=== PATIENT | male | born 1940 | race Caucasian/White ===

== ENCOUNTER 2025-01-16 14:30 | Outpatient (REF) | payer OTHER, SELFPAY | END 2025-01-16 14:31 | disposition home or self-care (01) | LOC: CF 14:30 | DX: Z13.89 Encounter for screening for other disorder (principal) ==

== ENCOUNTER 2025-02-06 10:16 | Outpatient (AMB) | payer OTHER, SELFPAY ==
--- NOTE | 2025-02-06 10:35 | A.OFFVIS_ITS ---
Vital Signs 02/06/25 10:37 Height 5 ft 10 in Weight 178 lb BMI 25.5 BP 142/70 Pulse 75 Pulse Oximetry (%) 97 Oxygen Delivery Method Room Air Intake Visit Reasons: Dyspnea on Exertion [facility] Consultant Required: No Senior Python Developer: Senior Python Developer offered & declined Accompanied by: Self / Same As Patient Allergies No Known Allergies Allergy (Verified 02/06/25 10:41) Medication List - Last Reconciled 02/06/25 by Seda Walls LPN lisinopril 20 mg PO DAILY metoprolol tartrate 25 mg PO BID omeprazole 40 mg PO DAILY tamsulosin 0.4 mg PO BEDTIME HPI HPI Dyspnea on Exertion: Details: James is a pleasant 84 year old male, former 25 pack year smoker, quit 40 years ago with underlying Sjogren's, HTN, HLD, GERD, Ta's esophagus and moderate TITUS. He was referred by PCP for pulmonary evaluation for progressively worsening dyspnea. He notes dyspnea started about 10 years ago and has become more notable with exertion, especially hills/stairs. Denies cough, chest tightness or wheezing. He also notes dyspnea is worse when he travels to [place] with elevation changes. Per referral cardiology evaluation has been unremarkable. Prior CT reports reviewed which revealed waxing and waning nodules, last CT 01/2023 noting scattered pulmonary nodules <4mm. He denies prior h/o asthma/COPD. He did have a prior PFT however reports 10 years ago. He denies any respiratory medications. He denies recurrent respiratory infections. He did have PNA in October, symptoms treated outpatient and had complete resolution of symptoms. 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 Denies any pertinent family history. He was previously under the care of rheumatology for Sjogren's however once provider retired years ago patient did not seek alternative provider. He notes only dry eye symptoms, currently under the care of ophthamology. He has a h/o moderate TITUS, AHI , 2016, however could not tolerate CPAP therapy, however interested in repeating sleep study. [facility] Social History (Updated 02/06/25 @ 10:43 by Seda Walls LPN) Patient Tobacco Use Status: Former Tobacco user Cigarette Packs Per Day: 1 Years Smoked: 20-25 Review of Systems Const Denies chills, Denies excessive sweating, Denies fever(s), Denies headache(s) and Denies night sweats Eyes Reports dry eyes, Denies irritation and Denies itchy eyes ENT Reports Normal hearing present, Denies headache(s), Denies nasal congestion, Denies nasal discharge, Denies post nasal drip and Denies sore throat Card Denies chest pain, Denies chest pain at rest, Denies chest pain with activity, Denies claudication, Denies leg edema, Reports dyspnea on exertion, Denies orthopnea and Denies paroxysmal nocturnal dyspnea Resp Denies chest congestion, Denies cough, Denies hemoptysis, Denies excessive phlegm production, Denies pain on inspiration, Denies pain with cough, Reports dyspnea on exertion, Denies stridor and Denies wheezing Musc Denies myalgias Neuro Reports Normal hearing present and Denies headache(s) Endo Denies excessive sweating Abdi/Lymph Denies lymphadenopathy Aller/Immun Denies itchy eyes, Denies seasonal rhinorrhea and Denies wheezing Physical Exam Vital Signs: Last Vital Signs Pulse 75 02/06/25 10:37 BP 142/70 02/06/25 10:37 Pulse Ox 97 02/06/25 10:37 Oxygen Delivery Method Room Air 02/06/25 10:37 BMI result Body Mass Index 25.5 Const General: cooperative, healthy appearing, comfortable, no acute distress, well developed and alert Orientation/consciousness: patient oriented x3 Limitations: no limitations HEENT Head: Yes normal to inspection, Yes normocephalic and Yes atraumatic Ears: hearing grossly normal bilaterally and external ears normal Eyes General: appearance normal, both eyes and all related structures Eyelids: Yes eyelids normal Sclerae: sclerae normal EOM: EOMs intact bilaterally Neck Neck: Yes normal visual inspection and Yes no lymphadenopathy Lymphatic: no lymphadenopathy noted Chest Chest palpation & inspection: normal inspection of the chest Resp Effort & Inspection: normal respiratory effort, able to speak in complete sentences, no audible wheezes, no cough, no stridor, not tachypneic, no tripod positioning and no use of accessory muscles Auscultation: clear to auscultation bilaterally Cardio Jugular venous distension: no JVD Rate: regular rate Rhythm: regular rhythm Skin Other: warm, dry General skin exam: no rashes or lesions noted Neuro General: patient oriented x3 Cranial nerves: Yes Normal hearing present Cognition (Neuro): normal cognition Gait exam (Neuro): Normal gait present Extrem General: Yes normal to inspection, Yes capillary refill normal, Yes no clubbing, cyanosis or edema and Yes no pedal edema Psych Appearance: grossly normal and well kempt Speech and movement: Normal speech and movement present and Clear speech present Affect: normal affect Attitude: cooperative Thought process: Normal thought process present Thought content: Normal thought content present Insight: Good insight present (Psych) Judgement: Good judgement present (Psych) Assessment & Plan Assessment & Plan (1) Dyspnea on exertion: Code(s): R06.09 - Other forms of dyspnea Category: Medical (2) Daytime somnolence: Code(s): R40.0 - Somnolence Category: Medical (3) Multiple pulmonary nodules: Code(s): R91.8 - Other nonspecific abnormal finding of lung field Category: Medical (4) Sjogren's disease: Code(s): M35.00 - Sjogren syndrome, unspecified Category: Medical Plan James presents for pulmonary evaluation for ongoing dyspnea. Will send for PFT to assess for obstructive defect given prior smoking history. Will also send for repeat Chest CT to assess for any ILD given h/o Sjogren's and stability of prior noted pulmonary nodules. Will attempt to obtain prior CT chest images. Previously patient underwent sleep study revealing moderate TITUS in 2017, he does note ongoing daytime fatigue napping 2-3 times per day and interested in repeating sleep study. Will enter order. All questions were answered and patient is in agreement of plan. Will follow up to review results or sooner if needed. Orders: Orders PFT pulmonary function test Today R06.09 - Other forms of dyspnea CT chest wo IV con Today M35.00 - Sjogren syndrome, unspecified, R91.8 - Other nonspecific abnormal finding of lung field RT home sleep study Today R40.0 - Somnolence Coding Level of Care Code New Pt Level 4 (66577) Diagnoses Dyspnea on exertion R06.09 Daytime somnolence R40.0 Multiple pulmonary nodules R91.8 Sjogren's disease M35.00
[2025-02-06 10:37] VITALS: BP 142/70; PULSE 75; O2SAT 97; BMI 25.5
--- OUTSIDE RECORDS SUMMARY | 2025-02-06 12:07 | XMS_ITS | Encounter Summary ---
Author Organization [facility] [employer] Address [address] [place] [address] [place] [address] Care Team Providers Care 3Rd Pressman Name Role Phone Sánchez Long Unassigned Primary Care Provider U quan [employer] Unavailable Elie Milliganin [facility] Unavailable Judah Chavez PA-C Primary Care Provider [phone] Encounter Details Date Type Department Care Team (Latest Contact Info) Description 06/09/2022 Abstract [facility] CONVERSIONS Dental, Provider, DDS Social History Tobacco Use Types Packs/Day Years Used Date Smoking Tobacco: Never Assessed Sex and Gender Information Value Date Recorded Sex Assigned at Male 08/31/2022 10:34 AM EDT Legal Sex Male 10:34 AM EDT Gender Identity Male 09/11/2022 9:06 PM EST Sexual Orientation Straight 09/11/2022 9: 06 PM EST documented as of this encounter Plan of Treatment Upcoming Encounters Date Type Department Care Team (Late st Contact Info) Description 04/10/2025 3:45 PM EDT Office Visit [facility] [address] [place] [phone] Bentley Milligan [facility] [address], [place] [phone] documented as of this encounter Visit Diagnoses Not on filedocumented in this encounter Care Teams 3Rd Pressman Relationship Specialty Start Date End Date Sánchez Long Unasslynette PCP - General Family Medicine 06/15/23 02/22/24 Judah Chavez PA-C [address] [place] [address] PCP - General Family Medicine 02/23/24 Lorne Luna LLD [address] [place] [id number] Dentist 10/21/23 Bentley Milligan RDH [address] [place] [address] Dental Ritual Circumciser 10/21/23 documented as of this encounter
--- OUTSIDE RECORDS SUMMARY | 2025-02-06 12:07 | XMS_ITS | Clinical Summary ---
Author Organization [employer] Address [address] [place] [address] [address] [place] [address] Care Team Providers Care Laboratory Tester Name Role Phone Lorne Luna LLD Unavailable MilliganBentley RD Unavailable Judah Chavez PA-C Primary Care Provider [phone] Allergies No known active allergies Medications lisinopril 40 MG tablet TAKE 1 TABLET BY MOUTH ONCE DAILY 03/10/2022 Active tamsulosin (Flomax) 0.4 MG 24 hr capsule Take 0.4 mg by mouth 2 times daily. Active hydroCHLOROthiaz mukul (HYDRODiuril) 25 MG tablet Take 25 mg by mouth in the morning. 01/22/2023 Active omeprazole (PriLOSEC) [address] capsule Take 40 mg by mouth. 02/01/2023 Active metoprolol tartrate (Lopressor) 50 MG tablet 03/16/2023 Active amLODIPine (Norvasc) 5 MG tablet 05/12/2023 Active dexlansoprazole (Dexilant) [address] capsule 06/09/2023 Active Active Problems Problem Noted Date Diagnosed Date Dental caries 09/02/2023 Sjogren syndrome with keratoconjunctivitis 07/19 Early dry stage nonexudative age-related macular degeneration of both eyes 07/19/2023 Nuclear age-related cataract, both eyes 07/19/20 23 Social History Tobacco Use Types Packs/Day Years Used Date Smoking Tobacco: Former Cigarettes 1 25 Smokeless Tobacco: Never Tobacco Cessation:Counseling Given: Not Answered Alcohol Use Standard Drinks/Week Comments Yes 7 (1 standard drink = 0.6 oz pur e alcohol) Sex and Gender Information Value Date Recorded Sex Assigned at Male 08/31/2022 10:34 AM EDT Legal Sex Male 10:34 AM EDT Gender Identity Male 09/11/2022 9:06 PM EST Sexual Orientation Straight 09/11/2022 9: 06 PM EST Last Filed Vital Signs Vital Sign Reading Time Taken Comments Blood Pressure 141/76 10/04/2024 3:32 PM EST Pulse 60 10/04/2024 3:32 PM EST Temperature 36.3 ??C (97.3 ??F) 10/04/2024 3:32 PM ES T Respiratory Rate - - Oxygen Saturation - - Inhaled Oxygen Concentration - - Weight - - Height - - Body Mass Index - - Plan of Treatment Upcoming Encounters Date Type Department Care Team (Late st Contact Info) Description 04/10/2025 3:45 PM EDT Office Visit [facility] [address] [place] [phone] [place], [place], [address] [address] Health Maintenance Due Date Last Done Comments Depression Screening 1942 Lipid Panel 1942 SDOH Screening 1942 Alcohol/Substance Use Screening 1954 Pneumococcal Vaccine: 50+ Years (1 of 1 - PCV) 1992 Zoster Vaccines (1 of 2) 1992 RSV Patients and Patients Aged 60 years or older (1 - 1-dose 75+ series) 2017 Dental Oral Exam 09/30/2024 03/29/2024, , 06/09/2022, Additional history exists Dental X-Ray: Bitewings 03/30/2025 03/29/20 24, 11/13/2022, 06/09/2022, Additional history exists Dental Prophylaxis 04/05/2025 10/04/2024, 0 03/29/2024, 06/09/2022, Additional history exists Tobacco Screening 10/04/2025 10/04/2024 Dental X-Ray: Full Mouth 11/14/2025 023, 10/14/2020, 11/20/2016, Additional history exists DTaP/Tdap/Td Vaccines (2 - Td or Tdap) 03/25/2032 03/25/2022 COVID-19 Vaccine Completed 06/28/2024, , 02/06/2022, Additional history exists Influenza Vaccine Completed 12/13/2024, 08/14/2022 HIB Vaccines Aged Out No longer eligi ble based on patient's age to complete this topic HPV Vaccines Aged Out No longer eligi ble based on patient's age to complete this topic Hepatitis A Vaccines Aged Out No long er eligible based on patient's age to complete this topic Hepatitis B Vaccines Aged Out No long er eligible based on patient's age to complete this topic IPV Vaccines Aged Out No longer eligi ble based on patient's age to complete this topic Meningococcal Vaccine Aged Out No omega chasidy eligible based on patient's age to complete this topic RSV under 20 months Aged Out No longe r eligible based on patient's age to complete this topic Rotavirus Vaccines Aged Out No longer eligible based on patient's age to complete this topic Procedures Procedure Name Priority Date/Time Associated Diagnosis Comments PROPHYLAXIS - ADULT Routine 10/04/2024 9 :00 AM EST BITEWINGS - 4 RADIOGRAPHIC IMAGES Routine 03/29/2024 1:30 PM EDT PERIODIC ORAL EVALUATION - ESTABLISHED PATIENT Routine 03/29/2024 1:30 PM EDT INTRAORAL - COMPLETE SERIES OF RADIOGRAPHIC IMAGES Routine 11/13/2022 8:30 AM EST Encounter for dental examination from Last 3 Months or Most Recently Relevant to Health [place] [id number] [facility] FULL HSN FULL DENTAL - HSN FULL (MEDICAID) DENTAL - HSN FULL (MEDICAID) Care Teams Laboratory Tester Relationship Specialty Start Date End Date Judah Chavez PA-C [address] [place] [address] PCP - General Family Medicine 02/23/24 Lorne Luna LLD [address] [place] [id number] Dentist 10/21/23 Bentley Milligan RDH [address] [place] [address] Dental Tobacco Drummer 10/21/23
--- OUTSIDE RECORDS SUMMARY | 2025-02-06 12:07 | XMS_ITS | Data Portability ---
Author Organization 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 Plan of Treatment Reminders Order Date Submit Date Provider Last Modified By Organization Details Last Modified Time Details Appointments None recorded. Lab CBC 2018 019 [facility], [address] [place] [address], [address], 9 12:24:42 C-reactive protein, quantitati ve, serum or plasma 2018 019 [facility], [address] [place] [address], 84383, 9 15:53:13 erythrocyt e sedimentat ion rate by westergren method 2018 019 [facility], [address] [place] [address], 32211, 9 14:13:45 CBC 2018 019 [facility], [address] [place] [address], 29034, 9 12:13:56 C-reactive protein, quantitati ve, serum or plasma 2018 019 [facility], [address] [place] [address], 29189, 9 12:56:10 erythrocyt e sedimentat ion rate by westergren method 2018 019 [facility], [address] [place] [address], 52869, 9 13:48:25 BMP, serum or plasma 2018 019 [facility], [address] [place] [address], 52971, 9 12:56:09 BMP, serum or plasma 2017 018 [facility], [address] [place] [address], 78625, 8 14:28:36 CBC 2017 018 [facility], [address] [place] [address], 14077, 8 12:37:26 erythrocyt e sedimentat ion rate by westergren method 2017 018 [facility], [address] [place] [address], 55329, 8 16:55:23 C-reactive protein, quantitati ve, serum or plasma 2017 018 [facility], [address] [place] [address], 10502, 8 16:57:16 rf (rheumatoi d factor), serum 2017 018 [facility], [address] [place] [address], 43874, 8 12:03:11 CBC 2017 018 [facility], [address] [place] [address], 15877, 8 08:56:17 erythrocyt e sedimentat ion rate by westergren method 2017 018 [facility], [address] [place] [address], 12020, 8 09:38:45 C-reactive protein, quantitati ve, serum or plasma 2017 018 [facility], [address] [place] [address], 57395, 8 16:42:22 protein electropho resis panel, serum or plasma 2017 [facility], [address] [place] [address], 64172, 8 15:36:54 immunoglob ulins iga+igg+ig m, quantitati ve, serum 2017 018 [facility], [address] [place] [address], 14310, 8 15:36:54 Referral None recorded. Procedures None recorded. Surgeries None recorded. Imaging None recorded. Medication Orders Plaquenil 200 mg tablet 2018 019 [email or web address], [address], 9 10:20:35 prednisone 1 mg tablet 2018 [address], [address], 9 17:54:09 Boniva 150 mg tablet 2018 [address], [address], 9 08:34:25 prednisone 5 mg tablet 2017 018 INTERFACE [address], [address], 8 15:44:14 ranitidine 150 mg tablet 2017 018 [email or web address], [address], 9 08:07:17 Patient TargetsNo targets recorded. Patient InstructionsNo instructions recorded. Reason for Referral None Reported. Results Created Date Observation Date Name Description Value Unit Range Abnormal Flag Note LastModifiedBy Organization Detail LastModifiedTime 09/06/20 18 09/07/2018 CBC WBC 8.0 K/? ? ?L 4.2-9. 1 Not Available [address], [address], 09/07/2018 08:56:17 09/06/20 18 09/07/2018 CBC RBC 4.84 M/? ? ?L 4.63-6 .08 Not Available [address], 56843, 09/07/2018 08:56:17 09/06/20 18 09/07/2018 CBC HGB 14.6 g/dL 13.7-1 7.5 Not Available [address], 11926, 09/07/2018 08:56:17 09/06/20 18 09/07/2018 CBC HCT 44.1 % 40.1-5 1.0 Not Available [address], 23058, 09/07/2018 08:56:17 09/06/20 18 09/07/2018 CBC MCV 91.1 ? ? ?L 79.0-9 2.2 Not Available [address], 86403, 09/07/2018 08:56:17 09/06/20 18 09/07/2018 CBC MCH 30.2 pg 25.7-3 2.2 Not Available [address], 08817, 09/07/2018 08:56:17 09/06/20 18 09/07/2018 CBC MCHC 33.1 g/dL 32.3-3 6.5 Not Available [address], 88735, 09/07/2018 08:56:17 09/06/20 18 09/07/2018 CBC plt 443.0 K/? ? ?L 163.0- 337.0 high Not Available [address], 37370, 09/07/2018 08:56:17 09/06/20 18 09/07/2018 CBC MPV 10.2 9.4-12 .4 Not Available [address], 68840, 09/07/2018 08:56:17 09/06/20 18 09/07/2018 CBC neut% 61.9 % 34.0-6 7.9 Not Available [address], 01841, 09/07/2018 08:56:17 09/06/20 18 09/07/2018 CBC neut# 5.0 1.8-5. 4 Not Available [address], 02077, 09/07/2018 08:56:17 09/06/20 18 09/07/2018 CBC lymph % 24.0 % 21.8-5 3.1 Not Available [address], 21592, 09/07/2018 08:56:17 09/06/20 18 09/07/2018 CBC lymph # 1.9 K/? ? ?L 1.3-3. 6 Not Available [address], 39156, 09/07/2018 08:56:17 09/06/20 18 09/07/2018 CBC mono% 12.7 % 5.3-12 .2 high Not Available [address], 68970, 09/07/2018 08:56:17 09/06/20 18 09/07/2018 CBC mono# 1.0 0.3-0. 8 high Not Available [address], 73117, 09/07/2018 08:56:17 09/06/20 18 09/07/2018 CBC eo% 0.9 % 0.8-7. 0 Not Available [address], 35433, 09/07/2018 08:56:17 09/06/20 18 09/07/2018 CBC eo# 0.1 0.0-0. 5 Not Available [address], 14391, 09/07/2018 08:56:17 09/06/20 18 09/07/2018 CBC baso% 0.5 % 0.2-1. 2 Not Available [address], 21963, 09/07/2018 08:56:17 09/06/20 18 09/07/2018 CBC baso# 0.0 0.0-0. 1 Not Available [address], 30032, 09/07/2018 08:56:17 09/06/20 18 09/07/2018 CBC RDW-CV 12.7 % 11.6-1 4.4 Not Available [address], 54235, 09/07/2018 08:56:17 09/06/20 18 09/07/2018 eryth rocyt e sedim entat ion rate by brandon sullivano d sed rate 34.0 0.0-20 .0 high Not Available [address], 96648, 09/07/2018 09:38:45 09/06/20 18 09/07/2018 rf (rheu matoi d facto r), serum rheumatoid factor 1.2 IU/mL 0.0-16 .0 <16.0 IU/mL - Negat debby 16.0- 19.9 IU/mL - Equiv ocal >20.0 IU/mL - Posit debby Not Available [address], 95996, 09/07/2018 12:03:11 09/06/20 18 09/07/2018 C-ziyad ctive prote in, quant itati ve, serum or plasm a C-reactive protein -quant 170.9 mg/L 0.0-9. 0 high VERD= Verif ied by Tate abbott. Not Available [address], [place], [address], 09/07/2018 16:42:22 09/06/20 18 09/12/2018 prote in elect ropho resis panel , serum or plasm a protein, total 6.9 g/dL 6.1-8. 1 normal Not Available [facility] [address], [address], 09/12/2018 15:36:54 09/06/20 18 09/12/2018 prote in elect ropho resis panel , serum or plasm a albumin 3.5 g/dL 3.8-4. 8 low Not Available [facility] [address], [address], 09/12/2018 15:36:54 09/06/20 18 09/12/2018 prote in elect ropho resis panel , serum or plasm a alpha 1 globulin 0.6 g/dL 0.2-0. 3 high Not Available [facility] [address], [address], 09/12/2018 15:36:54 09/06/20 18 09/12/2018 prote in elect ropho resis panel , serum or plasm a alpha 2 globulin 1.0 g/dL 0.5-0. 9 high Not Available [facility] [address], [address], 09/12/2018 15:36:54 09/06/20 18 09/12/2018 prote in elect ropho resis panel , serum or plasm a beta 1 globulin 0.8 g/dL 0.4-0. 6 high Not Available [facility] [address], [address], 09/12/2018 15:36:54 09/06/20 18 09/12/2018 prote in elect ropho resis panel , serum or plasm a beta 2 globulin 0.4 g/dL 0.2-0. 5 normal Not Available [facility] [address] [place], [place], [address], 09/12/2018 15:36:54 09/06/20 18 09/12/2018 prote in elect ropho resis panel , serum or plasm a gamma globulin 0.7 g/dL 0.8-1. 7 low Not Available [facility] [address] [place], [place], [address], 09/12/2018 15:36:54 09/06/20 18 09/12/2018 prote in elect ropho resis panel , serum or plasm a abnormal protein band 1 0.3 g/dL none detect ed high Not Available [facility] [address] [place], [place], [address], 09/12/2018 15:36:54 09/06/20 18 09/12/2018 prote in elect ropho resis panel , serum or plasm a interpretati on Evalu ation revea ls a restr icted band (M-sp emiliano) migra ting in the beta- 1 globu jason regio n. Consi hui immun ofixa tion deborah sis if indic ated. Not Available [facility] [address] [place], [place], [address], 09/12/2018 15:36:54 09/06/20 18 09/12/2018 immun oglob ulins iga+i gg+ig m, quant itati ve, serum interpretati on IgA lambd a monoc lonal band prese nt. Not Available [facility] [address] [place], [place], [address], 09/12/2018 15:36:54 09/06/20 18 09/12/2018 immun oglob ulins iga+i gg+ig m, quant itati ve, serum immunoglobul in A 468 mg/dL 81-463 high Not Available [facility] [address], [address], 09/12/2018 15:36:54 09/06/20 18 09/12/2018 immun oglob ulins iga+i gg+ig m, quant itati ve, serum immunoglobul in g 722 mg/dL 694-16 18 normal Not Available [facility] [address], [address], 09/12/2018 15:36:54 09/06/20 18 09/12/2018 immun oglob ulins iga+i gg+ig m, quant itati ve, serum immunoglobul in M 117 mg/dL 48-271 normal Not Available [facility] [address], [address], 09/12/2018 15:36:54 09/14/20 18 09/14/2018 kassi bello, blood segs 90 % Not Available [address], [address], 09/14/2018 15:12:13 09/14/20 18 09/14/2018 kassi bello, blood bands 1 % Not Available [address], 85126, 09/14/2018 15:12:13 09/14/20 18 09/14/2018 kassi bello, blood lymph 1 % Not Available [address], 91853, 09/14/2018 15:12:13 09/14/20 18 09/14/2018 kassi bello, blood mono 2 % Not Available [address], 00672, 09/14/2018 15:12:13 09/14/20 18 09/14/2018 jose thakkar, kassi wolf, blood reactive lymph 6 % 0-10 Not Available [address], [address]8565, 09/14/2018 15:12:13 09/14/20 18 09/14/2018 CBC WBC 18.1 K/? ? ?L 4.2-9. 1 critical high BRIAN=V erifi ed by Nancy Martinez nusrat high WBC resul t sullivan d to Joi at [facility] and CBC resul ts are avail able in the EMR at 1519, 09/14.s s. Not Available [address], [address], 09/14/2018 15:20:56 09/14/20 18 09/14/2018 CBC RBC 4.96 M/? ? ?L 4.63-6 .08 Not Available [address], 16453, 09/14/2018 15:20:56 09/14/20 18 09/14/2018 CBC HGB 14.8 g/dL 13.7-1 7.5 Not Available [address], 70534, 09/14/2018 15:20:56 09/14/20 18 09/14/2018 CBC HCT 44.1 % 40.1-5 1.0 Not Available [address], 33125, 09/14/2018 15:20:56 09/14/20 18 09/14/2018 CBC MCV 88.9 ? ? ?L 79.0-9 2.2 Not Available [address], 82202, 09/14/2018 15:20:56 09/14/20 18 09/14/2018 CBC MCH 29.8 pg 25.7-3 2.2 Not Available [address], 55799, 09/14/2018 15:20:56 09/14/20 18 09/14/2018 CBC MCHC 33.6 g/dL 32.3-3 6.5 Not Available [address], 40008, 09/14/2018 15:20:56 09/14/20 18 09/14/2018 CBC plt 524.0 K/? ? ?L 163.0- 337.0 high Not Available [address], 81139, 09/14/2018 15:20:56 09/14/20 18 09/14/2018 CBC MPV 9.9 9.4-12 .4 Not Available [address], 51346, 09/14/2018 15:20:56 09/14/20 18 09/14/2018 CBC neut% 88.2 % 34.0-6 7.9 high Not Available [address], 44727, 09/14/2018 15:20:56 09/14/20 18 09/14/2018 CBC neut# 16.0 1.8-5. 4 high Not Available [address], 12203, 09/14/2018 15:20:56 09/14/20 18 09/14/2018 CBC lymph % 7.5 % 21.8-5 3.1 low Not Available [address], 08686, 09/14/2018 15:20:56 09/14/20 18 09/14/2018 CBC lymph # 1.4 K/? ? ?L 1.3-3. 6 Not Available [address], 39894, 09/14/2018 15:20:56 09/14/20 18 09/14/2018 CBC mono% 4.1 % 5.3-12 .2 low Not Available [address], 27351, 09/14/2018 15:20:56 09/14/20 18 09/14/2018 CBC mono# 0.7 0.3-0. 8 Not Available [address], 50524, 09/14/2018 15:20:56 09/14/20 18 09/14/2018 CBC eo% 0.1 % 0.8-7. 0 low Not Available [address], 78644, 09/14/2018 15:20:56 09/14/20 18 09/14/2018 CBC eo# 0.0 0.0-0. 5 low Not Available [address], 12280, 09/14/2018 15:20:56 09/14/20 18 09/14/2018 CBC baso% 0.1 % 0.2-1. 2 low Not Available [address], 86529, 09/14/2018 15:20:56 09/14/20 18 09/14/2018 CBC baso# 0.0 0.0-0. 1 Not Available [address], 13927, 09/14/2018 15:20:56 09/14/20 18 09/14/2018 CBC RDW-CV 12.7 % 11.6-1 4.4 Not Available [address], 29961, 09/14/2018 15:20:56 09/14/20 18 09/14/2018 eryth rocyt e sedim entat ion rate by brandon baker d sed rate 15.0 0.0-20 .0 Not Available [address], 58433, 09/14/2018 15:46:27 09/14/20 18 09/14/2018 C-ziyad ctive prote in, quant itati ve, serum or plasm a C-reactive protein -quant 47.1 mg/L 0.0-9. 0 high LIPS= Speci men Sligh tly Lipem ic. Chem Resul ts may be effec jenelle. Not Available [address], [address], 09/14/2018 16:35:57 09/14/20 18 09/16/2018 lyme disea se igg+i gm Ab, serum borrelia burgdorferi Ab 0.30 <0.90 <=0.9 0 - Negat debby 0.91 - 1.09 - Equiv ocal >=1.1 0 - Posit debby Not Available [address], [address]73, 09/16/2018 14:55:57 10/04/20 18 10/04/2018 CBC WBC 13.8 K/? ? ?L 4.2-9. 1 high Not Available [address], 02667, 10/04/2018 12:37:26 10/04/20 18 10/04/2018 CBC RBC 4.90 M/? ? ?L 4.63-6 .08 Not Available [address], 12399, 10/04/2018 12:37:26 10/04/20 18 10/04/2018 CBC HGB 14.8 g/dL 13.7-1 7.5 Not Available [address], 07080, 10/04/2018 12:37:26 10/04/20 18 10/04/2018 CBC HCT 43.9 % 40.1-5 1.0 Not Available [address], 87458, 10/04/2018 12:37:26 10/04/20 18 10/04/2018 CBC MCV 89.6 fL 79.0-9 2.2 Not Available [address] [place], [address], 10/04/2018 12:37:26 10/04/20 18 10/04/2018 CBC MCH 30.2 pg 25.7-3 2.2 Not Available [address], 11009, 10/04/2018 12:37:26 10/04/20 18 10/04/2018 CBC MCHC 33.7 g/dL 32.3-3 6.5 Not Available [address], 33366, 10/04/2018 12:37:26 10/04/20 18 10/04/2018 CBC plt 261.0 K/? ? ?L 163.0- 337.0 Not Available [address], 09831, 10/04/2018 12:37:26 10/04/20 18 10/04/2018 CBC MPV 10.2 fL 9.4-12 .4 Not Available [address], 35099, 10/04/2018 12:37:26 10/04/20 18 10/04/2018 CBC neut% 87.5 % 34.0-6 7.9 high Not Available [address], 05553, 10/04/2018 12:37:26 10/04/20 18 10/04/2018 CBC neut# 12.1 1.8-5. 4 high Not Available [address], 72099, 10/04/2018 12:37:26 10/04/20 18 10/04/2018 CBC lymph % 7.0 % 21.8-5 3.1 low Not Available [address], 33939, 10/04/2018 12:37:26 10/04/20 18 10/04/2018 CBC lymph # 1.0 K/? ? ?L 1.3-3. 6 low Not Available [address], 90789, 10/04/2018 12:37:26 10/04/20 18 10/04/2018 CBC mono% 5.2 % 5.3-12 .2 low Not Available [address], 91827, 10/04/2018 12:37:26 10/04/20 18 10/04/2018 CBC mono# 0.7 0.3-0. 8 Not Available [address], 86010, 10/04/2018 12:37:26 10/04/20 18 10/04/2018 CBC eo% 0.2 % 0.8-7. 0 low Not Available [address], 19781, 10/04/2018 12:37:26 10/04/20 18 10/04/2018 CBC eo# 0.0 0.0-0. 5 low Not Available [address], 49854, 10/04/2018 12:37:26 10/04/20 18 10/04/2018 CBC baso% 0.1 % 0.2-1. 2 low Not Available [address], 29915, 10/04/2018 12:37:26 10/04/20 18 10/04/2018 CBC baso# 0.0 0.0-0. 1 Not Available [address], 38368, 10/04/2018 12:37:26 10/04/20 18 10/04/2018 CBC RDW-CV 14.5 % 11.6-1 4.4 high Not Available [address], 56493, 10/04/2018 12:37:26 10/04/20 18 10/04/2018 BMP, serum or plasm a glucose 94 mg/dL 70-100 LIPS= Speci men Sligh tly Lipem ic. Chem Resul ts may be effec jenelle. Not Available [address], [address], 10/04/2018 14:28:36 10/04/20 18 10/04/2018 BMP, serum or plasm a BUN 20 mg/dL 7-18 high Not Available [address], 28811, 10/04/2018 14:28:36 10/04/20 18 10/04/2018 BMP, serum or plasm a creatinine 1.1 mg/dL 0.8-1. 3 Not Available [address], 58269, 10/04/2018 14:28:36 10/04/20 18 10/04/2018 BMP, serum or plasm a B/C 18.2 ratio Not Available [address], 25244, 10/04/2018 14:28:36 10/04/20 18 10/04/2018 BMP, serum or plasm a GFR -non 69.4 mL/mi n Recom ida d GFR by the Natio nal Kidne y Found ation >60 mL/mi n/1.7 3m2 - Josefina l <60 mL/mi n/1.7 3m2 - Chron ic Kidne y Disea se <15 mL/mi n/1.7 3m2 - Kidne y Failu re Not Available [address], [address], 10/04/2018 14:28:36 10/04/20 18 10/04/2018 BMP, serum or plasm a GFR - if 83.9 mL/mi n For Afric an Ameri can patie nts: Resul ts Multi plied by 1.21 Not Available [address], 47989, 10/04/2018 14:28:36 10/04/20 18 10/04/2018 BMP, serum or plasm a sodium 138 mmol/ L 136-14 5 Not Available [address], 58459, 10/04/2018 14:28:36 10/04/20 18 10/04/2018 BMP, serum or plasm a potassium 4.5 mmol/ L 3.5-5. 1 Not Available [address], 71802, 10/04/2018 14:28:36 10/04/20 18 10/04/2018 BMP, serum or plasm a chloride 99 mmol/ L 96-107 Not Available [address], 80590, 10/04/2018 14:28:36 10/04/20 18 10/04/2018 BMP, serum or plasm a anion gap 11.3 5.0-15 .0 Not Available [address], 41723, 10/04/2018 14:28:36 10/04/20 18 10/04/2018 BMP, serum or plasm a CO2 28 mmol/ L 21-32 Not Available [address], 57874, 10/04/2018 14:28:36 10/04/20 18 10/04/2018 BMP, serum or plasm a calcium 9.5 mg/dL 8.5-10 .3 Not Available [address], 81302, 10/04/2018 14:28:36 10/04/20 18 10/04/2018 eryth rocyt e sedim entat ion rate by brandon baker d sed rate 3.0 0.0-20 .0 Not Available [address], 27136, 10/04/2018 16:55:23 10/04/20 18 10/04/2018 C-ziyad ctive prote in, quant itati ve, serum or plasm a C-reactive protein -quant <2.0 mg/L 0.0-9. 0 < Not Available [address], 34624, 10/04/2018 16:57:16 12/13/19 19 12/13/2018 CBC WBC 8.8 K/? ? ?L 4.2-9. 1 Not Available [address], 80530, 12/13/2018 12:13:56 12/13/1912/13/2018 CBC RBC 5.27 M/? ? ?L 4.63-6 .08 Not Available [address], 78532, 12/13/2018 12:13:56 12/13/1912/13/2018 CBC HGB 15.9 g/dL 13.7-1 7.5 Not Available [address], 49728, 12/13/2018 12:13:56 12/13/1912/13/2018 CBC HCT 47.3 % 40.1-5 1.0 Not Available [address], 86099, 12/13/2018 12:13:56 12/13/1912/13/2018 CBC MCV 89.8 fL 79.0-9 2.2 Not Available [address], 93492, 12/13/2018 12:13:56 12/13/1912/13/2018 CBC MCH 30.2 pg 25.7-3 2.2 Not Available [address], 79382, 12/13/2018 12:13:56 12/13/1912/13/2018 CBC MCHC 33.6 g/dL 32.3-3 6.5 Not Available [address], 61204, 12/13/2018 12:13:56 12/13/1912/13/2018 CBC plt 266.0 K/? ? ?L 163.0- 337.0 Not Available [address], 97877, 12/13/2018 12:13:56 12/13/1912/13/2018 CBC MPV 10.0 fL 9.4-12 .4 Not Available [address], 13589, 12/13/2018 12:13:56 12/13/1912/13/2018 CBC neut% 80.8 % 34.0-6 7.9 high Not Available [address], 35863, 12/13/2018 12:13:56 12/13/1912/13/2018 CBC neut# 7.1 1.8-5. 4 high Not Available [address], 07664, 12/13/2018 12:13:56 12/13/1912/13/2018 CBC lymph % 13.5 % 21.8-5 3.1 low Not Available [address], 20162, 12/13/2018 12:13:56 12/13/1912/13/2018 CBC lymph # 1.2 K/? ? ?L 1.3-3. 6 low Not Available [address], 99457, 12/13/2018 12:13:56 12/13/1912/13/2018 CBC mono% 5.5 % 5.3-12 .2 Not Available [address], 98875, 12/13/2018 12:13:56 12/13/1912/13/2018 CBC mono# 0.5 0.3-0. 8 Not Available [address], 85267, 12/13/2018 12:13:56 12/13/1912/13/2018 CBC eo% 0.1 % 0.8-7. 0 low Not Available [address], 87237, 12/13/2018 12:13:56 12/13/1912/13/2018 CBC eo# 0.0 0.0-0. 5 low Not Available [address], 96850, 12/13/2018 12:13:56 12/13/1912/13/2018 CBC baso% 0.1 % 0.2-1. 2 low Not Available [address], 09034, 12/13/2018 12:13:56 12/13/1912/13/2018 CBC baso# 0.0 0.0-0. 1 Not Available [address], 98950, 12/13/2018 12:13:56 12/13/1912/13/2018 CBC RDW-CV 14.6 % 11.6-1 4.4 high Not Available [address], 42615, 12/13/2018 12:13:56 12/13/1912/13/2018 BMP, serum or plasm a glucose 108 mg/dL 70-100 high Not Available [address], 99401, 12/13/2018 12:56:09 12/13/1912/13/2018 BMP, serum or plasm a BUN 20 mg/dL 7-18 high Not Available [address], 65067, 12/13/2018 12:56:09 12/13/1912/13/2018 BMP, serum or plasm a creatinine 1.1 mg/dL 0.8-1. 3 Not Available [address], 60851, 12/13/2018 12:56:09 12/13/1912/13/2018 BMP, serum or plasm a B/C 18.2 ratio Not Available [address], 06588, 12/13/2018 12:56:12/13/1912/13/2018 BMP, serum or plasm a GFR -non 69.2 mL/mi n Recom ida d GFR by the Natio nal Kidne y Found ation >60 mL/mi n/1.7 3m2 - Josefina l <60 mL/mi n/1.7 3m2 - Chron ic Kidne y Disea se <15 mL/mi n/1.7 3m2 - Kidne y Failu re Not Available [address], 21483, 12/13/2018 12:56:12/13/1912/13/2018 BMP, serum or plasm a GFR - if 83.7 mL/mi n For Afric an Ameri can patie nts: Resul ts Multi plied by 1.21 Not Available [address], 01515, 12/13/2018 12:56:12/13/1912/13/2018 BMP, serum or plasm a sodium 143 mmol/ L 136-14 5 Not Available [address], 25894, 12/13/2018 12:56:12/13/1912/13/2018 BMP, serum or plasm a potassium 4.5 mmol/ L 3.5-5. 1 Not Available [address], 68899, 12/13/2018 12:56:12/13/1912/13/2018 BMP, serum or plasm a chloride 102 mmol/ L 96-107 Not Available [address], 89767, 12/13/2018 12:56:12/13/1912/13/2018 BMP, serum or plasm a anion gap 11.0 5.0-15 .0 Not Available [address], 21042, 12/13/2018 12:56:09 12/13/19 19 12/13/2018 BMP, serum or plasm a CO2 30 mmol/ L 21-32 Not Available [address], 08770, 12/13/2018 12:56:09 12/13/19 19 12/13/2018 BMP, serum or plasm a calcium 10.0 mg/dL 8.5-10 .3 Not Available [address], 60829, 12/13/2018 12:56:09 12/13/19 19 12/13/2018 C-ziyad ctive prote in, quant itati ve, serum or plasm a C-reactive protein -quant 26.5 mg/L 0.0-9. 0 high Not Available [address], 39324, 12/13/2018 12:56:10 12/13/19 19 12/13/2018 eryth rocyt e sedim entat ion rate by brandon baker d sed rate 2.0 0.0-20 .0 Not Available [address], 75210, 12/13/2018 13:48:25 02/22/20 19 02/21/2019 CBC WBC 9.8 K/? ? ?L 4.2-9. 1 high Not Available [address], 98488, 02/21/2019 12:24:42 02/22/20 19 02/21/2019 CBC RBC 5.29 M/? ? ?L 4.63-6 .08 Not Available [address], 51419, 02/21/2019 12:24:42 02/22/20 19 02/21/2019 CBC HGB 16.2 g/dL 13.7-1 7.5 Not Available [address], [address], 02/21/2019 12:24:42 02/22/20 19 02/21/2019 CBC HCT 47.7 % 40.1-5 1.0 Not Available [address], [address], 02/21/2019 12:24:42 02/22/20 19 02/21/2019 CBC MCV 90.2 fL 79.0-9 2.2 Not Available [address], [address], 02/21/2019 12:24:42 02/22/20 19 02/21/2019 CBC MCH 30.6 pg 25.7-3 2.2 Not Available [address], [address], 02/21/2019 12:24:42 02/22/20 19 02/21/2019 CBC MCHC 34.0 g/dL 32.3-3 6.5 Not Available [address], [address], 02/21/2019 12:24:42 02/22/2002/21/2019 CBC plt 279.0 K/? ? ?L 163.0- 337.0 Not Available [address], [address], 02/21/2019 12:24:42 02/22/2002/21/2019 CBC MPV 10.1 fL 9.4-12 .4 Not Available [address], [address], 02/21/2019 12:24:42 02/22/2002/21/2019 CBC neut% 79.2 % 34.0-6 7.9 high Not Available [address], [address], 02/21/2019 12:24:42 02/22/20 19 02/21/2019 CBC neut# 7.8 1.8-5. 4 high Not Available [address], [address], 02/21/2019 12:24:42 02/22/20 19 02/21/2019 CBC lymph % 12.3 % 21.8-5 3.1 low Not Available [address], [address], 02/21/2019 12:24:42 02/22/2002/21/2019 CBC lymph # 1.2 K/? ? ?L 1.3-3. 6 low Not Available [address], [address], 02/21/2019 12:24:42 02/22/2002/21/2019 CBC mono% 7.6 % 5.3-12 .2 Not Available [address], [address], 02/21/2019 12:24:42 02/22/2002/21/2019 CBC mono# 0.7 0.3-0. 8 Not Available [address], [address], 02/21/2019 12:24:42 02/22/2002/21/2019 CBC eo% 0.5 % 0.8-7. 0 low Not Available [address], [address], 02/21/2019 12:24:42 02/22/2002/21/2019 CBC eo# 0.1 0.0-0. 5 Not Available [address], [address], 02/21/2019 12:24:42 02/22/2002/21/2019 CBC baso% 0.4 % 0.2-1. 2 Not Available [address], [address], 02/21/2019 12:24:42 02/22/2002/21/2019 CBC baso# 0.0 0.0-0. 1 Not Available [address], [address], 02/21/2019 12:24:42 02/22/20 19 02/21/2019 CBC RDW-CV 13.7 % 11.6-1 4.4 Not Available [address], [address], 02/21/2019 12:24:42 02/22/20 19 02/21/2019 eryth rocyt e sedim entat ion rate by brandon lawrence metho d sed rate 2.0 0.0-20 .0 Not Available [address], [address], 02/21/2019 14:13:45 02/22/20 19 02/21/2019 C-ziyad ctive prote in, quant itati ve, serum or plasm a C-reactive protein -quant <2.0 mg/L 0.0-9. 0 < Not Available [address], [address], 02/21/2019 15:53:13 Result Notes None recorded. Problems Name Problem SNOMED Code Status Onset Date Resolution Date Notes Provider Name and Address Organization Details Recorded Time Dry eyes 364617106 Active Not Available [facility] 3 03:14:35 Measuremen t finding outside reference range 872695030 Completed 200609/20/2013 Not Available [facility] 3 02:03:25 Gastroesop hageal reflux disease 827024241 Active 2006 Not Available [facility] 3 03:14:35 Glucose level outside reference range 819872109 Active Not Available [facility] 3 03:14:35 Monoclonal paraprotei nemia Active 2007 Not Available [facility] 3 03:14:35 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 Procedures Surgical History Date Name Laterality Status Provider Name and Address Organization Details Recorded Time 03/13/2016 Radha - EGD completed Sukumar Garcia MD [address] [place] [address], [phone], [facility] 03/13/2016 09:27:48 Imaging Results None recorded. Procedure Notes None recorded. Medical Equipment None Reported. Allergies Allergen ID Allergen Name Allergen Category Reaction Reaction Severity Criticality Documentation Date Start Date Code Code System Note Provider Name and Address Organization Details Recorded Time 21140101 hydroxych loroquine medicatio n hives Not available Not available 02/21/2019 5521 RxNorm Hellen Wilson LPN null, [facility] 9 10:20:52 Medications Name Sig Start Date Stop Date Status Note LastModified by Organization Details LastModified Time Plaquenil 200 mg tablet 1 po bid 02/21 completed Hives, adverse reaction Not Available Not Available Not Available lisinopri l 20 mg tablet Take 1 tablet every day by oral route. active Not Available Not Available No t Available prednison e 5 mg tablet Up to 4 pills daily. Taper as directed . 2018 active 12.5mg daily 02/21/19 Not Available Not Available Not Available Evoxac 30 mg capsule 11/01 completed Take 1.00 caps every day Not Available Not Available Not Available famotidin e 20 mg tablet Take 2 tablets every day by oral route. 10/04 completed Not Available Not Available Not Available tamsulosi n 0.4 mg capsule Take 1 capsule twice a day by oral route. active Not Available Not Available No t Available prednison e 1 mg tablet 4 po qd, taper as directed . 2018 active 12.5mg daily 02/21/19 Not Available Not Available Not Available amlodipin e 10 mg tablet Take 1 tablet every day by oral route. active Not Available Not Available No t Available ranitidin e 150 mg tablet Take 1 tablet every day by oral route. 11/18 completed doesn't take this Not Available Not Available Not Available Boniva 150 mg tablet Take 1 tablet every month by oral route. 2018 active Not Available Not Available Not Avai lable metoprolo l succinate 25mg BID active Not Available Not Available N ot Available Dexilant 60 mg capsule, delayed release Take 1 capsule every day by oral route for 56 days. active Not Available Not Available No t Available Vitals Date Recorded Body weight Heart rate Systolic blood pressure Diastolic blood pressure Provider Name and Address Organization Details Last Updated DateTime 09/06/2018 06254.26 g 96 /min 140 mm[Hg] 80 mm[Hg] Hellen Wilson [facility] 09/06/2018 15:14:45 Date Recorded Body weight Body mass index (BMI) Body height Heart rate Systolic blood pressure Diastolic blood pressure Provider Name and Address Organization Details Last Updated DateTime 8 7[address]36 g 26.4 kg/m2 177.8 cm 60 /min 120 mm[Hg] 68 mm[Hg] Hellen Wilson [facility] 8 09:26:40 Date Recorded Body height Body mass index (BMI) Body weight Heart rate Systolic blood pressure Diastolic blood pressure Provider Name and Address Organization Details Last Updated DateTime 9 177.8 cm 26.8 kg/m2 68113.7 7 g 80 /min 140 mm[Hg] 70 mm[Hg] Hellen Wilson [facility] 9 08:10:19 Date Recorded Body height Body mass index (BMI) Body weight Heart rate Systolic blood pressure Diastolic blood pressure Provider Name and Address Organization Details Last Updated DateTime 9 177.8 cm 27.3 kg/m2 28011.5 5 g 68 /min 154 mm[Hg] 96 mm[Hg] Hellen Wilson [facility] 9 08:26:04 Date Recorded Body height Body mass index (BMI) Body weight Heart rate Systolic blood pressure Diastolic blood pressure Provider Name and Address Organization Details Last Updated DateTime 9 177.8 cm 26.4 kg/m2 88829 g 80 /min 130 mm[Hg] 90 mm[Hg] Hellen Wilson [facility] 9 10:23:14 Social History Question Answer Notes LastModified by Organizat ion Details LastModified Time Tobacco Smoking Status Former Smoker 25 years ago Not Available [facility] 03/26/2011 02:08:45 What Is Your Level Of Alcohol Consumption? Moderate 6/week [email or web address] Information not available 10/04/2018 How Much Tobacco Do You Chew? None Information not available 09/17/2011 What Is Your Occupation? [employer] Information not available 09/19/2011 Patient Has Health Care Proxy Signed And In Chart Yes [email or web address] Information not available 07/14/2018 What Was The Date Of Your Most Recent Tobacco Screening? 02/21/2019 Information not available 05/24/2019 Sex: Unknown Functional Status None recorded. Mental Status None recorded. Family History Relationship Description Onset Age of this Age Resolved Age Notes LastModified by Organization Details LastModified Time Mother Arthritis Not available 09/06/2018 18:01:25 Medical History Condition Response HEMATOLOGIC Hypertension Y GERD Y RHEUMATOLOGIC Past Encounters Encounter ID Performer Location Encounter Start Date Encounter Closed Date Diagnosis/Indication Diagnosis SNOMED-CT Code Diagnosis ICD10 Code Diagnosis Note [id number] Rheumatsam figueroa [facility] [place] [address] 04/25/2007 14:55:58 11/21/2008 02:02:[id number] [place] [address] 04/25/2007 15:52:26 04/25/2007 15:52:[id number] [place] [address] 10/07/2007 12:31:56 10/07/2007 12:32:08 [id number] Luz Maria figueroa [address] [place] [address] 10/14/2007 12:54:06 11/21/2008 02:02:[id number] [place] [address] 10/02/2008 14:01:25 10/02/2008 14:31:14 [id number] Luz Maria figueroa [facility] [place] [address] 11/30/2008 11:18:10 12/03/2008 10:55:10 [id number] Luz Maria figueroa [facility] [place] [address] 02/11/2010 13:16:01 02/14/2010 09:28:37 [id number] Rheumatol og, [address] [place] [address] 09/18/2011 11:15:28 09/21/2011 09:37:44 [id number] Chica Aylin [facility] SHAUNA Verma [address] 03/13/2016 08:18:41 03/13/2016 13:38:59 [id number] Fredi Chapman MD Rheumatol [address] [place] [address] 09/06/2018 15:05:17 09/07/2018 06:07:23 Polymyalgia rheumatica [id number] M35.3 I am quite sure he has PMR.No labs available, but sxs are clearly inflammato ry and are exclusivel y proximal.. Discussed PRM.He has no features suggesting GCA. Discussed treatment and specifical ly discussed possible side effects prednisone . Take zantac for GI protection . Discussed calcium and vit d. Start prednisone 20/d. If not clearly improved 3 days, should contact me. I would raise dose to 30.If doing well, however, OK to try to reduce to 15 mg in 10 days. Then follow up about 4 weeks. [id number] Fredi Chapman MD Rheumatol [address] [place] [address] 10/04/2018 09:10:04 10/06/2018 07:00:59 Polymyalgia rheumatica [id number] M35.3 Classic PMR sxs, elevated CRP, ESR.Only atypical feature is that after initially responding to 20/d prednisone , sxs recurred and have required 15 bid to supress. Update labs today including blood sugar. May attempt slow taper from current 15 mg bid. If unable to taper, will want to add MTX. Long-term current use of systemic steroid 0224189792 25387 Z79.52 On calcium and VIt D. Also on PPI. If unable to taper significan tly in next 2 mo, will want to add Fosamax. Monoclonal gammopathy (clinical) 673162320 D47.2 Has IgA lamda monoclonal gammopathy . This has been present since 2009, unchanged. Doubtful significan c, but will follow. [id number] Fredi Chapman MD Rheumatol ogy, [address] [address] 11/18/2018 07:58:51 11/21/2018 06:41:13 Polymyalgia rheumatica 12135994 M35.3 Classic PMR sxs, elevated CRP, ESR.Only atypical feature is that after initially responding to 20/d prednisone , sxs recurred and since then has required higher than normal doses prednisone . He is unable to taper below 20 mg (10 BID). Lengthy discussion about options, course of PMR, complicati ons of steroid treatment. He is very reluctant to add additional medication and after discussion wants to wait a month or so before deciding about adding MTX. Long-term current use of steroid [id number] Z79.52 On higher than desireable dose of steroids and it does not seem as if he will taper to safe level anytime soon. .Discussed osteoporos is risk.Start anti-resor ptive agent.Cont inue calcium and Vit D. He has hx of Ta's and is on PPI.Will choose Boniva as it is only dosed once per month. discussed precaution s. If it causes and sxs esophagiti s, stop and call (would need Reclast). Update labs at next visit 1 mo. [id number] Fredi Chapman MD [place] [facility] [place] [address] [address] 12/13/2018 08:15:49 12/14/2018 06:37:31 Polymyalgia rheumatica [id number] M35.3 Classic PMR sxs, elevated CRP, ESR.Only atypical feature is that after initially responding to 20/d prednisone , sxs recurred and since then has required higher than normal doses prednisone . He is unable to taper below about 20 mg (10 BID). Lengthy discussion again about options, course of PMR, complicati ons of steroid treatment. Plaquenil may be of some benefit, although unproven. Low risk. Add at 200 bid.Discus sed the use of hydroxychl oroquine (Plaquenil ). Specifical ly discussed potential [employer] and GI side effects, sun sensitivit y and hyperpigme ntation, and discussed specifical ly potential for retinal toxicity and the need for regular eye exams. Advised boost prenisone for 2 weeks, then try taper by just 1 mg per wk, Return about 2 mo. Update labs today. Long-term drug therapy 235835601 Z79.899 Patient on long-term corticoste roids. Discussed adequate calcium and vitamin D intake. GI protection . On Boniva monthly. 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 [id number] Fredi Chapman MD [facility] [facility] [place], [facility] [address] [place] [address] 02/21/2019 10:13:18 02/23/2019 06:24:16 Monoclonal paraproteinemia 940625890 D47.2 IgA: Normal total IgA: level unchanged. Polymyalgi a rheumatica [id number] M35.3 Classic PMR sxs, elevated CRP, ESR.Only atypical feature is that after initially responding to 20/d prednisone , sxs recurred and since then has required higher than normal doses prednisone . Declined MTX. Tried adding Plaquenil but was allergic. He has managed to wean to current 12.5 mg prednisone . Will update labs. Attempt to continue slow pred taper (1 mg every 2 weeks). Return about 3 mo. Long-term current use of steroid 143182327 Z79.52 On higher than desireable dose of steroidsDi scussed osteoporos is risk.On Boniva, tolerating .Continue calcium and Vit D. Should discuss bone density scan with Primary Care (establish ing new PCP at [place]) Dry eyes 194931709 H04.1 29 No worse. Health Concerns Section Related Observation LastModified by Organization Detai ls LastModified Time None Recorded Concern Status LastModified by Organization Details LastModified Time None Recorded Advance Directives Directive None Recorded Payers Encounter Date Sequence Insurance Name Policy Number Policy Mcgill Covered Member ID Mcgill Member ID Guarantor Name 09/06/2018 1 [place] [employer] James W Levy [id number] James Moodus 10/04/2018 1 [place] [employer] James W Levy [id number] James Levy 11/18/2018 1 [place] [employer] James W Moodus [id number] James Moodus 12/13/2018 1 [place] [employer] James W Levy [id number] James Levy 02/21/2019 James Levy [id number] James Lockett Notes Date Note Type Note Provider Name and Address Organization Details Recorded Time 09/06/2018 text/html This is a very pleasant 77-year-old man whom I followed several years ago. At that time he was felt to have probable Sjogren's syndrome (negative SSA/SSB) with an associated IgA lambda monoclonal gammopathy. I have not seen him in more than 7 years. He was living in [place] for a while, has returned to this area.He was in usual health in July, [email or web address]In August had onset of R hip (groin) pain, and subsequently evolved progressive sxs bilat hips, shoulders and neck. Describes very prominent AM stiffness lasting 2 hrs or more. Denies any unusual headache. No jaw claudication, scalp dysesthesia, visual symptoms. No fevers chills sweats or weight loss. Fredi Chapman MD [address] [place] [address], [phone], [facility] 09/06/2018 18:15:18 10/04/2018 text/html This is a very pleasant 77-year-old man whom I followed several years ago. At that time he was felt to have probable Sjogren's syndrome (negative SSA/SSB) with an associated IgA lambda monoclonal gammopathy. I had not seen him in more than 7 years. In August had onset of R hip (groin) pain, and subsequently evolved progressive sxs bilat hips, shoulders and neck. Described very prominent AM stiffness lasting 2 hrs or more. CRP was 170. ESR 34.Dx'd with PMR. Started prednisone 20/d with prompt response, but then sxs recurred. For past 3 weeks on 15 BID. Feels fine. Denies any unusual headache. No jaw claudication, scalp dysesthesia, visual symptoms. No fevers chills sweats or weight loss. Fredi Chapman MD [address] [place] [address], [phone], [facility] 10/05/2018 08:08:13 11/18/2018 text/html This is a very pleasant 77-year-old man whom I followed several years ago. At that time he was felt to have probable Sjogren's syndrome (negative SSA/SSB) with an associated IgA lambda monoclonal gammopathy. I had not seen him in more than 7 years. In August 2018 had onset of R hip (groin) pain, and subsequently evolved progressive sxs bilat hips, shoulders and neck. Described very prominent AM stiffness lasting 2 hrs or more. CRP was 170. ESR 34.Dx'd with PMR. Started prednisone 20/d with prompt response, but then sxs recurred. Required higher doses prednisone (15 BID) to supress sxs. Since then has tried to taper prednisone, but unable to get below 20 mg without significant recurrent sxs. Denies any unusual headache. No jaw claudication, scalp dysesthesia, visual symptoms. No fevers chills sweats or weight loss. Fredi Chapman MD [address] [place] [address], [phone], [facility] 11/20/2018 10:16:45 12/13/2018 text/html This is a very pleasant 78-year-old man whom I followed several years ago. At that time he was felt to have probable Sjogren's syndrome (negative SSA/SSB) with an associated IgA lambda monoclonal gammopathy. In August 2018 had onset of R hip (groin) pain, and subsequently evolved progressive sxs bilat hips, shoulders and neck. Described very prominent AM stiffness lasting 2 hrs or more. CRP was 170. ESR 34.Dx'd with PMR. Started prednisone 20/d with prompt response, but then sxs recurred. Required higher doses prednisone (15 BID) to supress sxs. Since then has tried to taper prednisone, but unable to get below 20 mg without significant recurrent sxs.When I saw him a month ago, I advised adding MTX, but he declined and wanted to try to continue to taper prednisone. He still is unable to taper below ~ 17.5/d. Shoulders and neck are where sxs recur. Denies any unusual headache. No jaw claudication, scalp dysesthesia, visual symptoms. No fevers chills sweats or weight loss. Fredi Chapman MD [address] [place] [address], [phone], [facility] 12/13/2018 17:59:39 02/21/2019 text/html This is a very pleasant 78-year-old man whom I followed several years ago. At that time he was felt to have probable Sjogren's syndrome (negative SSA/SSB) with an associated IgA lambda monoclonal gammopathy. In August 2018 had onset of R hip (groin) pain, and subsequently evolved progressive sxs bilat hips, shoulders and neck. Described very prominent AM stiffness lasting 2 hrs or more. CRP was 170. ESR 34.Dx'd with PMR. Started prednisone 20/d with prompt response, but then sxs recurred. Required higher doses prednisone (15 BID) to supress sxs. Since then has tried to taper prednisone, but was having trouble getting below 20 mg without significant recurrent sxs.Added Plaquenil, but after a month had allergic reaction (rash). Has managed to taper prednisone to current 12.5 mg/d. On lower dose had sxs especially L shoulder. Denies any unusual headache. No jaw claudication, scalp dysesthesia, visual symptoms. No fevers chills sweats or weight loss. Fredi Chapman MD [address] [place] [address], [phone], [facility] 02/22/2019 09:03:18
--- OUTSIDE RECORDS SUMMARY | 2025-02-06 12:07 | XMS_ITS | Encounter Summary ---
Author Organization [facility] Address [address] [place] [address] [place] [address] Care Team Providers Care Order Dispatcher Name Role Phone Sánchez Long Unassigned Primary Care Provider U reubenjacob Lorne Luna LL Unavailable Bentley Milligan [facility] Unavailable Judah Chavez PA-C Primary Care Provider [phone] Encounter Details Date Type Department Care Team (Latest Contact Info) Description 02/27/2019 Abstract [facility] CONVERSIONS Dental, Provider, DDS Social [...] EDT Office Visit [facility] [address] [place] [id number] Bentley Milligan [facility] [address] [place], [place] [phone] documented as of this encounter Visit Diagnoses Not on filedocumented in this encounter Care Teams Order Dispatcher Relationship Specialty Start Date End Date Sánchez Long Unassigned PCP - General Family Medicine 06/15/23 02/22/24 Judah Chavez PA-C [address] [place] [address] PCP - General Family Medicine 02/23/24 Lorne Luna LLD [address] [place] [address] Dentist 10/21/23 Bentley Milligan [facility] [address] [place] [address] Dental Tool Tender 10/21/23 documented as of this encounter
--- OUTSIDE RECORDS SUMMARY | 2025-02-06 12:07 | XMS_ITS | Encounter Summary ---
Author Organization [facility] [employer] Address [address] [place] [address] [place] [address] Care Team Providers Care Eligibility Supervisor Name Role Phone Sánchez Long Unassigned Primary Care Provider U quan Lorne Luna LL Unavailable Bentley Milligan [facility] Unavailable Judah Chavez PA-C Primary Care Provider [phone] Encounter Details Date Type Department Care Team (Latest Contact Info) Description 09/16/2020 Abstract [facility] CONVERSIONS Dental, Provider, DDS Social [...] EDT Office Visit [facility] [address] [place] [phone] Bentley Milligan [facility] [address] [place], [place] [phone] documented as of this encounter Visit Diagnoses Not on filedocumented in this encounter Care Teams Eligibility Supervisor Relationship Specialty Start Date End Date Sánchez Long Unassigned PCP - General Family Medicine 06/15/23 02/22/24 Judah Chavez PA-C [address] [place] [address] PCP - General Family Medicine 02/23/24 Lorne Luna LLD [address] [place] [id number] Dentist 10/21/23 Bentley Milligan [facility] [address] [place] [address] Dental Animal Eviscerator 10/21/23 documented as of this encounter
--- OUTSIDE RECORDS SUMMARY | 2025-02-06 12:07 | XMS_ITS | Clinical Summary ---
Author Organization Formerly [facility] Address [facility] [place] [address] Care Team Providers Care Powder Room Attendant Name Role Phone Unknown Primary Care Provider Unavailabl e Allergies No known active allergies Medications Medication Sig Dispensed Refills Start Date End Date Status CHOLECALCIFEROL, VITAMIN D3, (VITAMIN D-3 ORAL) 05/07/2010 Active DEXLANSOPRAZOLE (DEXILANT) 30 mg CpDM 30 MG = 1 Capsule(s), PO, Twice daily 10/27/2010 Active lisinopril (PRINIVIL;ZESTRIL) 30 mg tablet Take 30 mg by mouth daily. Active tamsulosin (FLOMAX) 0.4 mg capsule Take 0.4 mg by mouth daily. Active Active Problems Problem Noted Date Diagnosed Date Elevated PSA 05/08/2014 Social History Tobacco Use Types Packs/Day Years Used Date Smoking Tobacco: Former Cigarettes 1 23 0 11/01/1959 - 11/01/1982 Smokeless Tobacco: Never Alcohol Use Standard Drinks/Week Comments Not Asked 4 (1 standard drink = 0.6 oz pur e alcohol) Sex and Gender Information Value Date Recorded Sex Assigned at Not on file Gender Identity Not on file Sexual Orientation Not on file Last Filed Vital Signs Vital Sign Reading Time Taken Comments Blood Pressure 136/80 11/28/2014 10:53 AM EST Pulse 69 11/28/2014 10:53 AM EST Temperature 36.6 ??C (97.9 ??F) 05/07/2014 11:39 AM E DT Respiratory Rate 16 05/07/2014 11:39 AM EDT Oxygen Saturation 97% 11/28/2014 10:53 AM EST Inhaled Oxygen Concentration - - Weight 77.1 kg (170 lb) 11/28/2014 10:53 AM EST Height 177.8 cm (5' 10 ) 11/28/2014 10:53 AM EST Body Mass Index 24.39 11/28/2014 10:53 AM EST Plan of Treatment Health Maintenance Due Date Last Done Comments CT Colonography 1942 FIT DNA 1942 FIT 1942 Sigmoidoscopy (10 year) with FIT yearly 1942 Sigmoidoscopy 1942 Tetanus/Diphtheria/Pertussis Vaccines (1 - Tdap) 1961 Pneumoccocal Vaccine: 50+ (1 of 1 - PCV) 1992 Zoster vaccine (1 of 2) 1992 Advance Directive 1997 Colonoscopy 09/14/2013 09/14/2008 (See prior EHR) Colorectal Cancer Screening 09/14/2013 RSV Vaccine (1 - 1-dose 75+ series) 2017 Covid-19 Vaccine (1 - 2023- season) 2024 Influenza (Flu) vaccine (1 o f 1 - Influenza standard series) 07/02/2024 Care Teams Powder Room Attendant Relationship Specialty Start Date End Date Unknown None PCP - General 06/01/22
--- OUTSIDE RECORDS SUMMARY | 2025-02-06 12:07 | XMS_ITS | Encounter Summary ---
Author Organization [facility] [employer] Address [address] [place] [address] [address] [place] [address] Care Team Providers Care Weave Room Supervisor Name Role Phone Lorne Luna LLD Unavailable SriniBentley [facility] Unavailable Judah Chavez PA-C Primary Care Provider [phone] Encounter Details Date Type Department Care Team (Eav Contact Info) Description 07/04/[address] [phone] Judah Chavez PA-C [address] [place], [place] [id number] Social History Tobacco Use Types Packs/Day Years Used Date Smoking Tobacco: Former Cigarettes 1 25 Smokeless Tobacco: Never Alcohol Use Standard Drinks/Week Comments Yes 7 (1 standard drink = 0.6 oz pur e alcohol) Sex and Gender Information Value Date Recorded Sex Assigned at Male 08/31/2022 10:34 AM EDT Legal Sex Male 10:34 AM EDT Gender Identity Male 09/11/2022 9:06 PM EST Sexual Orientation Straight 09/11/2022 9: 06 PM EST documented as of this encounter Miscellaneous Notes * Telephone Encounter - Mer Poe - 07/04/2024 3:20 PM EDT Please call patient and let him know if his crown is there, would like to know before he comes in for appt documented in this encounter Plan of Treatment Upcoming Encounters Date Type Department Care Team (Eva candelario Contact Info) Description 04/10/2025 3:45 PM EDT Office Visit [facility] [address] [place] [phone] MilliganBentley [address] [address] documented as of this encounter Visit Diagnoses Not on filedocumented in this encounter Care Teams Weave Room Supervisor Relationship Specialty Start Date End Date Judah Chavez PA-C [address] [place] [id number] PCP - General Family Medicine 02/23/24 Lorne Luna LLD [address] [place] [phone] Dentist 10/21/23 Srini Bentley, [address] [address] Dental Feeder Catcher Tobacco 10/21/23 documented as of this encounter
== END 2025-02-06 11:36 | disposition home or self-care (01) ==
LOC: HO.HPSW 10:16
PROVIDERS: PCP Family Medicine; Referring Provider Family Medicine; Visit Provider Nurse Practitioner Family
DX: R06.09 Other forms of dyspnea (principal); R40.0 Somnolence; R91.8 Other nonspecific abnormal finding of lung field; M35.00 Sjogren syndrome, unspecified
CPT/HCPCS: 99204

== ENCOUNTER → 2025-02-06 10:16 | Outpatient (BNVA) | payer OTHER, SELFPAY | PROVIDERS: PCP Family Medicine; Referring Provider Family Medicine; Visit Provider Nurse Practitioner Family | DX: R06.09 Other forms of dyspnea (principal); R40.0 Somnolence; R91.8 Other nonspecific abnormal finding of lung field; M35.00 Sjogren syndrome, unspecified | CPT/HCPCS: 99202 ==

== ENCOUNTER → 2025-04-25 13:21 | Outpatient (REF) | payer OTHER, SELFPAY ==
--- OUTSIDE RECORDS SUMMARY | 2025-04-23 06:45 | XMS_ITS | Continuity of Care Document ---
Author Name [facility] Organization [facility] Care Team Providers Care Grade And Center Marker Name Role Phone [facility] Unavailable Unavailable Problems Combined list of problems from Department of Defense and Veterans Affairs facilities. It does not include entries that were removed or entered in error. 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 Leticia Gee 2020 Entered By: REILLY LANG Comment: followed by GI Dr. Kelly with EGD every 3 years for Ta's esopagus due 10/2021 [facility] History of polyp of colon Active Condition [facility] HTN-Hypertension (SCT [id number]) Active Condition May 16, 2018 Entered By: [place] CHRISTIANSEN Comment: Followed by Dr. Samira Pozo Cardiovascular [facility] Hyperlipidemia (SCT [id number]) Active Condition [facility] Malignant melanoma Active Condition Oct 28, 2022 Entered By: ROMAN SERRANO Comment: at age 52, removed with excision only, no LN testing [facility] Obstructive Sleep Apnea Syndrome (SCT [id number]) Active Condition [facility] Polymyalgia rheumatica Active Condition Sep 13, 2020 Entered By: REILLY LANG Comment: Followed by [facility] Dr. Bia Noble [facility] Seborrhoeic dermatitis of scalp Active Condition Oct 28, 2022 Entered By: ROMAN SERRANO Comment: ketoconazole shampoo prescribed, if not effective, will add topical clobetasol or fluocinonide solution [facility] Sjogren's syndrome Active Condition May 16, 2018 Entered By: [place] CHRISTIANSEN Comment: Dr. Chapman diagnosed, dry eyes and throat [facility] Solitary nodule of lung Active Condition March 25, 2022 Entered By: REILYL LANG Comment: CT CHEST 07/10/2020: New 3-4 mm right upper lobe nodule. Rec: chest CT in 1yr. Previously seen 4 mm right lung base nodule has resolved in the interval.Nov 04, 2022 Entered By: REILLY LANG Comment: CT CHEST 10/28/22: Pulmonary nodules measuring up to 5 mm are not significantly changed compared with July 2020 [facility] Tinea pedis Active Condition Oct 28, 2022 Entered By: ROMAN SERRANO Comment: ketoconazole cream prescribed [facility] [place] [facility] Diagnosis: ICD-10-CM E78.5 Hyperlipidemia, unspecified Active Diagnosis [place] ([facility]) Diagnosis: ICD-10-CM K21.9 Gastro-esophageal reflux disease without esophagitis Active Diagnosis [facility] Diagnosis: ICD-10-CM I10 Essential (primary) hypertension Active Diagnosis [place] ([facility]) Diagnosis: ICD-10-CM Z23 Encounter for immunization Active Diagnosis [facility] [place] [facility] Diagnosis: ICD-10-CM R06.00 Dyspnea, unspecified Active Diagnosis [place] ([facility]) Diagnosis: ICD-10-CM G47.33 Obstructive sleep apnea (adult) (pediatric) [facility] [facility] Diagnosis: ICD-10-CM C43.9 Malignant melanoma of skin, unspecified Active Diagnosis [facility] Medications Combined list of outpatient medications from Department of Defense and Veterans Affairs facilities.Medications provided include 1) outpatient medications from the last 15 months, and 2) patient-reported medications. Medication Details Route Status Patient Instructions Prescription Expires Prescription Number Last Dispense Date Ordering Provider Order Date Order Qty Source CICLOPIROX 8% SOLN,TOP APPLY SMALL AMOUNT TOPICALL Y AT BEDTIME FOR FUNGAL DISEASE OF THE NAILS [place] L ACTIVE 04/10/2026 [id number] SAUNDRA ESPINAL 2024 6.6 [facility] [facility] [facility]) DEXLANSOPRA ZOLE 60MG CAP,EC TAKE 1 CAPSULE BY MOUTH ONCE DAILY ORAL ACTIVE NATO CHRISTIANSEN GH SOL 2017 [facility] [facility] [facility]) LISINOPRIL 20MG TAB TAKE ONE TABLET BY MOUTH ONCE DAILY ORAL ACTIVE KEBEULAH,SAUNDRA Pate 2024 [facility] ([facility]) METOPROLOL SUCCINATE 100MG TAB,SA TAKE ONE TABLET BY MOUTH ONCE DAILY ORAL ACTIVE KEALY,SAUNDRA Pate 2024 [facility] [facility] ([facility]) MULTIVIT/OP H AREDS2/LUTE IN/ZEAXANTH IN CAP/TAB TAKE 1 CAPSULE BY MOUTH TWICE DAILY IN THE MORNING AND EVENING, WITH FOOD ORAL ACTIVE 12/08/2025 [id number] SAUNDRA ESPINAL 2024 120 [facility] ([facility]) MULTIVIT/OP HTH AREDS2/LUTE IN/ZEAXANTH IN CAP/TAB TAKE 1 CAPSULE BY MOUTH TWICE DAILY IN THE MORNING AND EVENING, WITH FOOD ORAL 08/02/2024 [id number] Aram GONZALEZ E 2022 240 [facility] TAMSULOSIN HCL 0.4MG CAP TAKE ONE CAPSULE BY MOUTH TWICE DAILY FOR ENLARGED PROSTATE ORAL ACTIVE 06/23/2025 [id number] STERLING LOVE D 2023 180 [facility] Immunizations Combined list of available immunizations from the Department of Defense and Veterans Affairs facilities. Immunization Series Date Given Administered By Site Reaction Lot Number CVX Code Drug Seed Core Operator Status Comments Source INFLUENZA, HIGH-DOSE, TRIVALENT, PF 2024 CHILSON,TIMOT HY E LEFT DELTO ID [id number] 135 complet ed ADMINISTE RED AT ID, [facility] COVID-19 (MODERNA), MRNA, LNP-S, PF, 50 MCG/0.5 ML (AGES 12+ YEARS) 2023 312 complet ed HISTORICA L INFORMATI ON - FROM PATIENT'S WRITTEN RECORD, [facility] COVID-19 (MODERNA), MRNA, LNP-S, PF, 50 MCG/0.5 ML (AGES 12+ YEARS) 3 2022 JOYCE SHARMA ER M LEFT DELTO ID [id number] 312 complet ed ADMINISTE RED AT ID, [facility] INFLUENZA, UNSPECIFIED FORMULATION 2021 88 complet ed [facility] TDAP 2021 115 complet ed [facility] ([facility]) COVID-19 (MODERNA), MRNA, LNP-S, PF, 100 MCG/0.5 ML DOSE 2 2020 207 complet ed MOD; [id number]; 1 [facility] COVID-19 (MODERNA), MRNA, LNP-S, PF, 100 MCG/0.5 ML DOSE 1 2020 207 complet ed MOD; [id number]; 1 [facility] [place] [facility] Results Combined list of recent chemistry, hematology and other laboratory results from Department of Defense and Veterans Affairs, ranging from 15 months to all on record, depending upon the facility. Order Name Results Value Reference Range Date Interpretation Specimen Comments Source LIPID PANEL FASTING CHOLESTERO L [MASS/VOLU ME] IN SERUM OR PLASMA 203 mg/dL 04/04 H Specimen Type: SERUM No comment entered. Ordering Provider: FAINA ESPINAL Report Released Date/Time: Jan 18, 2025 10:00 AM Reporting Lab: [facility] [address] [address] Performing Lab: [facility] [address] [facility] LIPID PANEL FASTING TRIGLYCERI DE [MASS/VOLU ME] IN SERUM OR PLASMA 148 mg/dL 0 - 150 04/04 Specimen Type: SERUM No comment entered. Ordering Provider: FAINA ESPINAL Report Released Date/Time: Jan 18, 2025 10:00 AM Reporting Lab: [facility] [place] [facility] [address] [facility] [address] Performing Lab: [facility] [place] [facility] [address] [facility] [address] [facility] [place] [facility] LIPID PANEL FASTING CHOLESTERO L IN LDL [MASS/VOLU ME] IN SERUM OR PLASMA BY CALCULATIO N 114 mg/dL 0 - 129 04/04 Specimen Type: SERUM No comment entered. Ordering Provider: FAINA ESPINAL Report Released Date/Time: Jan 18, 2025 10:00 AM Reporting Lab: [facility] [place] [facility] [address] [facility] [address] Performing Lab: [facility] [place] [facility] [address] [facility] [address] [facility] [place] [facility] LIPID PANEL FASTING CHOLESTERO L.TOTAL/CH OLESTEROL IN HDL [MASS RATIO] IN SERUM OR PLASMA 3.4 04/04 Specimen Type: SERUM No comment entered. Ordering Provider: FAINA ESIPNAL Report Released Date/Time: Jan 18, 2025 10:00 AM Reporting Lab: [facility] [place] [facility] [address] [facility] [address] Performing Lab: [facility] [place] [facility] [address] [facility] [address] [facility] [place] [facility] LIPID PANEL FASTING CHOLESTERO L IN HDL [MASS/VOLU ME] IN SERUM OR PLASMA 59 mg/dL 40 04/04 Specimen Type: SERUM No comment entered. Ordering Provider: FAINA ESPINAL Report Released Date/Time: Jan 18, 2025 10:00 AM Reporting Lab: [facility] [place] [facility] [address] [facility] [address] Performing Lab: [address] [address] [facility] LIPOPROT EIN (a) LIPOPROTEI N FRACTIONS [INTERPRET ATION] IN SERUM OR PLASMA <10nmol/ L 12/25 Specimen Type: SERUM Comment: REFERENCE RANGE: <75 nmol/L Assay was repeated and verified. Risk Category Optimal < 75 nmol/L Moderate 75 - 125 nmol/L High > 125 nmol/L Cardiovascu lar event risk category cut points (optimal, moderate, high) are based on Janie Andres JACC 2017;69:692 -711. Test Performed by [facility], [address] [place] [address] Jose Michelle M.D., Ph.D., Director of Laboratorie s , CLIA [id number] TEST PERFORMED AT: , Ordering Provider: FAINA ESPINAL Report Released Date/Time: Dec 25, 2024 10:59 AM Reporting Lab: [address] [address] Performing Lab: [facility] [address] [address] [place] [facility] ([facility]) APOLIPOP ROTEIN B MUTATION DETECTIO N APOLIPOPRO TEIN B [MASS/VOLU ME] IN SERUM OR PLASMA 105 mg/dL 12/25 H Specimen Type: SERUM Comment: REFERENCE RANGE: <90 mg/dL Reference Range: <90 Risk Category: Optimal < 90 Moderate 90 - 119 High > or = 120 Cardiovascu lar event risk category cut points (optimal, moderate, high) are based on National Lipid Association recommendat ions-Merna richards TA et al. J Clin Lipid. 2015;9:129- 169 and Geremias BISHOP et al. Endocr Pract. 2017;23(Sup pl 2):1-87. Test Performed by [facility], [address] [place] [address] Jose W Miguel Angel, M.D., Ph.D., Director of Laboratorie s , CLIA [id number] TEST PERFORMED AT: , Ordering Provider: FAINA ESPINAL Report Released Date/Time: Dec 25, 2024 10:59 AM Reporting Lab: [facility] [address] [facility] [address] Performing Lab: [facility] [address] [facility], [address] [place] [id number] [place] [facility] ([facility]) C REACTIVE PROTEIN HS (WROX) C REACTIVE PROTEIN [MASS/VOLU ME] IN SERUM OR PLASMA BY HIGH SENSITIVIT Y METHOD 1.72 mg/L 12/25 Specimen Type: SERUM Comment: Reference range changed on 04/21/11 [facility] reference ranges for ages >17 years: hsCRP in mg/L Risk According to AHA/CDC Guidelines <1.0 Lower relative cardiovascu lar risk. 1.0-3.0 Average cardiovascu lar risk. 3.1-10.0 Higher cardiovascu lar risk. Consider retesting in two weeks to exclude a benign transient elevation in the baseline CRP value secondary to infection or inflammatio n. >10.0 Persistent elevation, upon retesting, may be associated with infection and inflammatio n. Ordering Provider: FAINA ESPINAL Report Released Date/Time: Dec 25, 2024 10:59 AM Reporting Lab: [facility] [address] [facility] [address] Performing Lab: [facility] [address] [facility] [address] [place] [facility] ([facility]) SED RATE, AUTOMATE D ERYTHROCYT E SEDIMENTAT ION RATE BY WESTERGREN METHOD 7 mm/h 0 - 20 12/25 Specimen Type: BLOOD No comment entered. Ordering Provider: FAINA ESPINAL Report Released Date/Time: Dec 25, 2024 10:59 AM Reporting Lab: [facility] [address] [facility] [address] Performing Lab: [facility] [address] [facility] [address] [place] [facility] ([facility]) VITAMIN D (25-OH) 25-HYDROXY VITAMIN D3 [MASS/VOLU ME] IN SERUM OR PLASMA 23 ng/mL 20 - 50 10/11 Specimen Type: SERUM No comment entered. Ordering Provider: FAINA ESPINAL Report Released Date/Time: Sep 27, 2024 03:20 PM Reporting Lab: [facility] [place] [facility] [address] [facility] [address] Performing Lab: [facility] [place] [facility] [address] [facility] [address] [facility] MICROALB UMIN CREATINI NE RATIO PANEL MICROALBUM IN/CREATIN INE [MASS RATIO] IN URINE 15.6 mg/g 0 - 29.9 10/11 Specimen Type: URINE No comment entered. Ordering Provider: FAINA ESPINAL Report Released Date/Time: Sep 27, 2024 03:20 PM Reporting Lab: [facility] [place] [address] [address] Performing Lab: [facility] [place] [facility] [address] [facility] [address] [facility] MICROALB UMIN CREATINI NE RATIO PANEL MICROALBUM IN [MASS/VOLU ME] IN URINE 2.0 mg/dL 10/11 Specimen Type: URINE No comment entered. Ordering Provider: FAINA ESPINAL Report Released Date/Time: Sep 27, 2024 03:20 PM Reporting Lab: [facility] [place] [facility] [address] [facility] [address] Performing Lab: [facility] [place] [facility] [address] [facility] [address] [facility] [facility] MICROALB UMIN CREATINI NE RATIO PANEL CREATININE [MASS/VOLU ME] IN URINE 127.98 mg/dL 10/11 Specimen Type: URINE No comment entered. Ordering Provider: FAINA ESPINAL Report Released Date/Time: Sep 27, 2024 03:20 PM Reporting Lab: [facility] [address] [facility] [address] Performing Lab: [facility] [address] [facility] [address] [facility] [place] [facility] VITAMIN B12 COBALAMIN (VITAMIN B12) [MASS/VOLU ME] IN SERUM OR PLASMA 400 pg/mL 200 - 900 10/11 Specimen Type: SERUM No comment entered. Ordering Provider: FAINA ESPINAL Report Released Date/Time: Sep 27, 2024 03:20 PM Reporting Lab: [facility] [place] [facility] [address] [facility] [address] Performing Lab: [facility] [place] [facility] [address] [facility] [address] [facility] [place] [facility] URINALYS IS COLOR OF URINE Yellow 10/11 Specimen Type: URINE Comment: If Glucose = >500 and Ketones are positive, please alert the Physician. Ordering Provider: FAINA ESPINAL Report Released Date/Time: Sep 27, 2024 03:20 PM Reporting Lab: [facility] [place] [facility] [address] [facility] [address] Performing Lab: [facility] [place] [facility] [address] [facility] [address] [facility] [place] [facility] URINALYS IS APPEARANCE OF URINE Clear 10/11 Specimen Type: URINE Comment: If Glucose = >500 and Ketones are positive, please alert the Physician. Ordering Provider: FAINA ESPINAL Report Released Date/Time: Sep 27, 2024 03:20 PM Reporting Lab: [facility] [place] [facility] [address] [facility] [address] Performing Lab: [facility] [place] [facility] [address] [facility] [address] [facility] [place] [facility] URINALYS IS GLUCOSE [MASS/VOLU ME] IN URINE Normalmg /dL 10/11 Specimen Type: URINE Comment: If Glucose = >500 and Ketones are positive, please alert the Physician. Ordering Provider: FAINA ESPINAL Report Released Date/Time: Sep 27, 2024 03:20 PM Reporting Lab: [facility] [address] [facility] [address] Performing Lab: [facility] [address] [facility] [address] [facility] URINALYS IS KETONES [MASS/VOLU ME] IN URINE BY TEST STRIP NEGATIVE mg/dL 10/11 Specimen Type: URINE Comment: If Glucose = >500 and Ketones are positive, please alert the Physician. Ordering Provider: FAINA ESPINAL Report Released Date/Time: Sep 27, 2024 03:20 PM Reporting Lab: [facility] [place] [facility] [address] [facility] [address] Performing Lab: [facility] [place] [facility] [address] [facility] [address] [facility] URINALYS IS ERYTHROCYT ES [PRESENCE] IN URINE SEDIMENT BY LIGHT MICROSCOPY NEGATIVE mg/dL 10/11 Specimen Type: URINE Comment: If Glucose = >500 and Ketones are positive, please alert the Physician. Ordering Provider: FAINA ESPINAL Report Released Date/Time: Sep 27, 2024 03:20 PM Reporting Lab: [facility] [place] [facility] [address] [facility] [address] Performing Lab: [facility] [place] [facility] [address] [facility] [address] [facility] URINALYS IS PROTEIN [MASS/VOLU ME] IN URINE BY TEST STRIP 10 mg/dL 10/11 Specimen Type: URINE Comment: If Glucose = >500 and Ketones are positive, please alert the Physician. Ordering Provider: FAINA ESPINAL Report Released Date/Time: Sep 27, 2024 03:20 PM Reporting Lab: [facility] [address] [facility] [address] Performing Lab: [facility] [address] [facility] [address] [facility] URINALYS IS NITRITE [PRESENCE] IN URINE NEGATIVE mg/dL 10/11 Specimen Type: URINE Comment: If Glucose = >500 and Ketones are positive, please alert the Physician. Ordering Provider: FAINA ESPINAL Report Released Date/Time: Sep 27, 2024 03:20 PM Reporting Lab: [facility] [place] [address] [address] Performing Lab: [facility] [place] [address] [address] [facility] [place] [facility] URINALYS IS BILIRUBIN. TOTAL [PRESENCE] IN URINE NEGATIVE mg/dL 10/11 Specimen Type: URINE Comment: If Glucose = >500 and Ketones are positive, please alert the Physician. Ordering Provider: FAINA ESPINAL Report Released Date/Time: Sep 27, 2024 03:20 PM Reporting Lab: [facility] [place] [address] [address] Performing Lab: [facility] [place] [address] [address] [facility] URINALYS IS SPECIFIC GRAVITY OF URINE BY REFRACTOME TRY 1.022 1.016 - 1.022 10/11 Specimen Type: URINE Comment: If Glucose = >500 and Ketones are positive, please alert the Physician. Ordering Provider: FAINA ESPINAL Report Released Date/Time: Sep 27, 2024 03:20 PM Reporting Lab: [facility] [place] [address] [address] Performing Lab: [facility] [place] [address] [address] [facility] URINALYS IS PH OF URINE BY TEST STRIP 7.0 5.0 - 9.0 10/11 Specimen Type: URINE Comment: If Glucose = >500 and Ketones are positive, please alert the Physician. Ordering Provider: FAINA ESPINAL Report Released Date/Time: Sep 27, 2024 03:20 PM Reporting Lab: [facility] [address] [address] Performing Lab: [facility] [address] [address] [facility] URINALYS IS UROBILINOG EN [MASS/VOLU ME] IN URINE BY TEST STRIP Normalmg /dL <2.0 - 2.0 10/11 Specimen Type: URINE Comment: If Glucose = >500 and Ketones are positive, please alert the Physician. Ordering Provider: FAINA ESPINAL Report Released Date/Time: Sep 27, 2024 03:20 PM Reporting Lab: [address] [address] Performing Lab: [address] [phone] [place] [address] URINALYS IS LEUKOCYTE ESTERASE [PRESENCE] IN URINE BY TEST STRIP NEGATIVE 10/11 Specimen Type: URINE Comment: If Glucose = >500 and Ketones are positive, please alert the Physician. Ordering Provider: FAINA ESPINAL Report Released Date/Time: Sep 27, 2024 03:20 PM Reporting Lab: [address] [address] Performing Lab: [facility] [address] [address] [place] [address] HEMOGLOB IN A1C PANEL HEMOGLOBIN A1C/HEMOGL OBIN.TOTAL IN BLOOD BY HPLC 5.3 4.0 - 5.6 10/11 Specimen Type: BLOOD Comment: Values obtained from A1C measurement s can vary. For atypical A1C assays, a reported value of 7.0 could actually be between 6.72 and 7.28 if measured by a reference method. A reported value of 9.0 could actually be between 8.73 and 9.27. Ref: http://www. ngsp.org/[place] Pdata.asp Ordering Provider: FAINA ESPINAL Report Released Date/Time: Sep 27, 2024 03:20 PM Reporting Lab: [address] [place] [address] Performing Lab: [facility] [address] [facility] [address] [facility] Vital Signs Combined list of inpatient and outpatient Vital Signs from Department of Defense and Veterans Affairs, ranging from 12 months to all on record, depending upon the facility. Vital Sign Value Date Comments Source SYSTOLIC BLOOD PRESSURE 144 04/09/2025 09:35:03 [facility] ([facility]) DIASTOLIC BLOOD PRESSURE 83 04/09/2025 09:35:03 [facility] ([facility]) PULSE OXIMETRY 99 % 04/09/2025 09:35:03 [place] ([facility]) WEIGHT 181 04/09/2025 09:35:03 [place] ([facility]) BMI 26 kg/m2 04/09/2025 09:35:03 [place] ([facility]) PAIN 3 04/09/2025 09:35:03 [place] ([facility]) TEMPERATURE 97.4 04/09/2025 09:35:03 [place] N[place] ([facility]) PULSE 63 04/09/2025 09:35:03 [place] ([facility]) RESPIRATION 20 04/09/2025 09:35:03 [place] ([facility]) SYSTOLIC BLOOD PRESSURE 183 12/25/2024 10:30:29 [place] ([facility]) DIASTOLIC BLOOD PRESSURE 84 12/25/2024 10:30:29 [place] ([facility]) PULSE OXIMETRY 99 12/25/2024 10:30:29 [place] ([facility]) WEIGHT 178.6 12/25/2024 10:30:29 [place] ([facility]) BMI 26 kg/m2 12/25/2024 10:30:29 [place] ([facility]) PAIN 2 12/25/2024 10:30:29 [place] ([facility]) PULSE 67 12/25/2024 10:30:29 [place] ([facility]) RESPIRATION 18 12/25/2024 10:30:29 [place] ([facility]) SYSTOLIC BLOOD PRESSURE 132 10/16/2024 11:06:21 [facility] ([facility]) DIASTOLIC BLOOD PRESSURE 78 10/16/2024 11:06:21 [facility] ([facility]) PULSE OXIMETRY 97 10/16/2024 11:06:21 [place] ([facility]) WEIGHT 179 10/16/2024 11:06:21 [place] ([facility]) BMI 26 kg/m2 10/16/2024 11:06:21 [place] ([facility]) PAIN 0 10/16/2024 11:06:21 [place] ([facility]) TEMPERATURE 98 10/16/2024 11:06:21 [place] ([facility]) PULSE 73 10/16/2024 11:06:21 [place] ([facility]) RESPIRATION 20 10/16/2024 11:06:21 [place] ([facility]) Encounters Combined list of: 1) Encounters from Department of Veterans Affairs facilities going backup to the last 18 months, not all VA inpatient encounters are included; 2) Encounters from the Department of [facility] facilities going backup to 280 months. Location Location Details Encounter Type Encounter Number Reason For Visit Attending Provider ADM Date DC Date Status Disposition Source [facility]counter [id number] 11/19 [facility] En[facility] [id number] 01/13 [facility] OFFICE O/P EST SF 10 MIN [id number] Diagnos is: ICD-10- CM C43.9 Maligna nt melanom a of skin, unspeci BETTIE Loredo RD 03/15 [facility] Outpatient Encounter [id number] 03/15 [facility] Out[facility] Encounter [id number] 03/17 [facility] Out[facility] Encounter [id number] 03/23 [facility] Encounter [id number] 04/04 [facility] Out[facility] Encounter [id number] 04/14 [facility] Encounter [id number] 04/27 [facility] Out[facility] Encounter [id number] 06/20 [facility] Encounter [id number] 06/20 [facility] Out[facility] Encounter [id number] [facility] Out[facility] Encounter [id number] 06/23 [facility] POS AIRWAY PRESSURE CPAP [id number] 1. Diagnos is: ICD-10- CM G47.33 Obstruc tive sleep apnea (adult) (pediat klarissa) [facility] 06/23 [facility] Encounter [id number] 06/26 [facility] Encounter [id number] 06/27 [facility] Encounter [id number] 1.08/08 [facility] Encounter [id number] 08/16 [facility] Encounter [id number] 08/23 [facility] Encounter [id number] 08/28 [facility] Encounter [id number] 1.09/05 [facility] Out[facility] Encounter [id number] 09/06 [facility] Out[facility] Encounter [id number] [facility] Encounter [id number] 09/14 [facility] Out[facility] Encounter [id number] 09/26 [facility] Encounter [id number] 1.10/16 [facility] ([facility] OFFICE O/P EST HI 40 MIN [id number] Diagnos is: ICD-10- CM I10 Essenti al (primar y) hyperte nsion KEALY,SHEV AUGHN M 10/16 [place] [facility] Out[facility] Encounter [id number] 10/20 [facility] Out[facility] Encounter [id number] 10/20 [facility] Out[facility] Encounter [id number] 10/24 [facility] Encounter [id number] 10/26 [facility] Out[facility] Encounter [id number] [facility] PT EDUCATION NOC INDIVID [id number] Diagnos is: ICD-10- CM R06.00 Dyspnea , unspeci fied CHRISTENSO NABDIAS L 11/03 [place] [facility] Out[facility] Encounter [id number] 11/06 [facility] Out[facility] Encounter [id number] 11/13 [facility] Out[facility] Encounter [id number] 11/16 [facility] Out[facility] Encounter [id number] 11/23 [facility] OFFICE O/P EST MOD 30 MIN [id number] Diagnos is: ICD-10- CM R06.00 Dyspnea , unspeci fied KEALY,SHEV AUGHN M 12/07 [place] [facility] Outpatient Encounter [id number] 12/09 [facility] OFF/OP EST MAY X REQ PHY/QHP [id number] Diagnos is: ICD-10- CM Z23 Encount er for immuniz ation CHIABHIJIT,TI MOTHY E 12/13 [facility] Outpatient Encounter [id number] [facility] [facility] OFFICE O/P EST MOD 30 MIN [id number] Diagnos is: ICD-10- CM I10 Essenti al (primar y) hyperte nsion TONIA ESPINAL 12/25 [place] [facility] Outpatient Encounter [id number] 01/10 [facility] Outpatient Encounter [id number] 01/16 [facility] [place] [facility] OFFICE O/P EST MOD 30 MIN [id number] Diagnos is: ICD-10- CM E78.5 Hyperli pidemia , unspeci TONIA Christiansen 01/18 [place] [facility] [place] NQHP OL DIG ASSMT&MGMT 5-10 [id number] Diagnos is: ICD-10- CM K21.9 Gastro- esophag eal reflux disease without esophag itis ILSA JACOBS IE 01/22 [place] [facility] Outpatient Encounter [id number] [facility] Out[facility] Encounter [id number] [facility] Outpatient Encounter [id number] [facility] Outpatient Encounter [id number] [facility] Outpatient Encounter [id number] [facility] Out[facility] Encounter [id number] [facility] [facility] ([facility]) OFFICE O/P EST MOD 30 MIN [id number] Diagnos is: ICD-10- CM E78.5 Hyperli pidemia , unspeci fied KEBEULAH,SAUNDRAV AUGHN M 04/09 [place] [facility] Outpatient Encounter [id number] 04/10 [facility] Out[facility] Encounter [id number] 04/10 [facility] Social History Combined list of available smoking, tobacco, and other social history from Department of Defense and Veterans Affairs facilities. Social History Type Response Date Comment Source Tobacco smoking status LAIS VA-TOBACCO NEVER USED OTHER TYPE 04/09/2025 [facility] ([facility]) History of tobacco use VA-TOBACCO USE FORMER CIGARETTES 04/09/2025 [facility] ([facility]) History of tobacco use VA-[facility]ACCO FORMER USER 03/15/2024 [facility] History of tobacco use VA-TOBACCO QUIT 15 YRS OR MORE 03/24/2023 [facility] ([facility]) History of tobacco use VA-TOBACCO NEVER USED 03/25/2022 [facility] ([facility]) History of tobacco use VA-TOBACCO FORMER USER 11/19/2020 [facility] ([facility]) History of tobacco use VA-TOBACCO QUIT 15 YRS OR MORE 06/27/2019 [facility] ([facility]) History of tobacco use QUIT TOBACCO USE > 7 YEARS AGO 05/23/2018 quit 30yrs ago [facility] ([facility]) History of tobacco use QUIT TOBACCO USE > 7 YEARS AGO 04/28/2018 quit 42 years ago, used to smoke 1 pack daily [facility] ([facility]) Plan of Care List of future care activities from Department of Veterans Affairs facilities. Additional future care activities may be listed in the Assessment and Plan section. Date/Time Care Activity Care Activity Detail Facili ty 04/09/2025 Consult Order [facility] LASTIC SURGERY Cons Frozen Pie Maker's Choice [facility] ([facility])
== END ==
LOC: HO.SL 13:21
PROVIDERS: Visit Provider Nurse Practitioner Family
DX: G47.33 Obstructive sleep apnea (adult) (pediatric) (principal); R40.0 Somnolence
CPT/HCPCS: 95806

== ENCOUNTER → 2025-04-25 13:39 | Outpatient (BNV) | payer OTHER, SELFPAY | PROVIDERS: Visit Provider Internal Medicine | DX: G47.33 Obstructive sleep apnea (adult) (pediatric) (principal) | CPT/HCPCS: 95806 ==

== ENCOUNTER 2025-06-15 13:04 | Outpatient (REF) | payer OTHER, SELFPAY ==
--- OUTSIDE RECORDS SUMMARY | 2024-10-16 07:00 | XMS_ITS | Encounter Summary ---
Author Name [facility] Address [address] [place] [address] Care Team Providers Care Parts Clerk Name Role Phone PRITI MOSQUEDA Primary Care Provider Unavailabl e Insurance Providers: All historical and current Section Date Range: From patient's date of to the date document was created. This section includes the names of all active insurance providers for the patient. Insurance Provider Type of Coverage Plan Name Start of Policy Coverage End of Policy Coverage Group Number Member ID Insurance Provider's Telephone Number Policy Mcgill's Name Patient's Relationship to Policy Mcgill MEDICARE (WNR) MEDICARE (M) PART A Nov 01, 2007 PART A [id number] [phone] [id number] LAUREN HERNANDES PATIENT MEDICARE (WNR) MEDICARE () PART B Nov 01, 2007 PART B [id number] LAUREN HERNANDES PATIENT MEDICARE (WNR) MEDICARE (M) PART A Nov 01, 2007 PART A [id number] LAUREN HERNANDES PATIENT MEDICARE (WNR) MEDICARE (M) PART B Nov 01, 2007 PART B [id number] [phone] LAUREN HERNANDES PATIENT MEDICARE (WNR) MEDICARE (M) PART A Nov 01, 2007 PART A [id number] LAUREN HERNANDES PATIENT MEDICARE (WNR) MEDICARE (M) PART B Nov 01, 2007 PART B [id number] LAUREN HERNANDES PATIENT MEDICARE (WNR) MEDICARE (M) PART B Nov 01, 2007 PART B [id number] LAUREN HERNANDES PATIENT MEDICARE (WNR) MEDICARE (M) PART A Nov 01, 2007 PART A [id number] [phone] LAUREN HERNANDES PATIENT MEDICARE (WNR) MEDICARE (M) PART A Nov 01, 2007 PART A [id number] LAUREN HERNANDES PATIENT MEDICARE (WNR) MEDICARE (M) PART B Nov 01, 2007 PART B [id number] [phone] [id number] LAUREN HERNANDES PATIENT MEDICARE (WNR) MEDICARE (M) PART A Nov 01, 2007 PART A [id number] LAUREN HERNANDES PATIENT MEDICARE (WNR) MEDICARE (M) PART B Nov 01, 2007 PART B [id number] [id number] LAUREN HERNANDES PATIENT Selected Encounter This section includes the information on record at [place] for the Encounter. Date/Time Encounter Type Encounter Description Reason Provider Source Oct 16, 2024 11:00 AM OFFICE O/P EST HI 40 MIN PRIMARY CARE/MEDICINE ICD-10-CM I10 Essential (primary) hypertension EDUARDO ESPINAL Domenica Encounter Template Text not used by [place] Assessments - Encounter Diagnoses This section includes the primary and secondary diagnoses documented for the Encounter. 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, unsp eye EDUARDO ESPINAL ([facility]) Oct 18, 2024 08:54 AM SECONDARY Malignant melanoma of skin, unspecified EDUARDO ESPINAL ([facility]) Oct 18, 2024 08:54 AM SECONDARY Obstructive sleep apnea (adult) (pediatric) EDUARDO ESPINALFIELD ([facility]) Oct 18, 2024 08:54 AM SECONDARY Polymyalgia rheumatica EDUARDO ESPINALFIELD ([facility]) Oct 18, 2024 08:54 AM SECONDARY Solitary pulmonary nodule EDUARDO ESPINALFIELD ([facility]) Plan of Treatment: Future Appointments (+ 6 months) and Future Tests (+/- 45 days) The Plan of Treatment section includes future care activities for the patient from [facility] [place] [facility]. This section includes future appointments and future orders which are active, pending or scheduled. Future Appointments This section includes appointments that were scheduled to occur 6 months from the date of the Encounter, up to a maximum of 20 appointments. The data comes from all [place] treatment facilities. Appointment Date/Time Appointment Type Appointme nt Facility Name Oct 19, 2024 01:00 PM AMBULATORY - MEDICINE [place] [facility] [place] [facility] Nov 03, 2024 10:00 AM AMBULATORY - MEDICINE [facility] ([facility]) Nov 28, 2024 01:00 PM AMBULATORY - PSYCHIATRY [place] [facility] [place] [facility] Dec 07, 2024 10:00 AM AMBULATORY - MEDICINE [place] [facility] [place] [facility] Dec 13, 2024 01:00 PM AMBULATORY - MEDICINE [place] [facility] [place] [facility] Dec 25, 2024 10:30 AM AMBULATORY - MEDICINE [facility] ([facility]) Dec 26, 2024 02:15 PM AMBULATORY - MEDICINE [place] [facility] [place] [facility] Jan 01, 2025 10:00 AM AMBULATORY - NONE [place] [facility] [place] [facility] Jan 10, 2025 11:30 AM AMBULATORY - MEDICINE [place] [facility] [place] [facility] Jan 18, 2025 09:30 AM AMBULATORY - MEDICINE [place] [facility] [place] [facility] Feb 06, 2025 10:30 AM AMBULATORY - MEDICINE [place] [facility] [place] [facility] Apr 09, 2025 09:30 AM AMBULATORY - MEDICINE [facility] ([facility]) Lab Results: +/- 30 days of the encounter This section includes the Chemistry and Hematology Lab Results on record with [place] for the patient. Radiology Reports and Pathology Reports are provided separately, in subsequent sections. Lab Results This section contains the Chemistry/Hematology Results that were resulted 30 days before or 30 daysafter the date of the Encounter. Date/Time Source Result Type Result - Unit Interpretation Reference Range Specimen Type Comment Oct 11, 2024 10:33 AM [facility] MICROALBUMIN CREATININE RATIO PANEL URINE Spe cimen Type: URINE No comment entered. Ordering Provider: CLEMENCIA ESPINAL Report Released Date/Time: Sep 27, 2024 03:20 PM Reporting Lab: [address] [address] Performing Lab: [address] [address] MICROALBUMIN/CREATININE RATIO 15.6 mg/g 0-29.9 MICROALBUMIN,QUANTITATIVE 2.0 mg/dL RR U NAVAIL CREATININE URINE 127.98 mg/dL Oct 11, 2024 10:33 AM [facility] URINALYSIS URINE Specimen Type: URINE Comment: If Glucose = >500 and Ketones are positive, please alert the Physician. Ordering Provider: CLEMENCIA ESPINAL Report Released Date/Time: Sep 27, 2024 03:20 PM Reporting Lab: [address] [address] Performing Lab: [address] [address] UA COLOR Yellow Yellow UA APPEARANCE Clear Clear UA GLUCOSE Normal mg/dL Negative UA KETONES NEGATIVE mg/dL Negative UA BLOOD NEGATIVE mg/dL Negative UA PROTEIN 10 mg/dL Negative UA NITRITE NEGATIVE mg/dL Negative UA BILIRUBIN NEGATIVE mg/dL Negative UA SPECIFIC GRAVITY 1.022 1.016-1.022 UA pH 7.0 5.0-9.0 UA UROBILINOGEN Normal mg/dL <2.0 UA LEUKOCYTE NEGATIVE Negative Oct 11, 2024 10:33 AM [facility] HEMOGLOBIN A1C PANEL BLOOD Specimen Type: BLO OD Comment: Values obtained from A1C measurements can vary. For atypical A1C assays, a reported value of 7.0 could actually be between 6.72 and 7.28 if measured by a reference method. A reported value of 9.0 could actually be between 8.73 and 9.27. Ref: http://www.ngsp.org/CAPdata.asp Ordering Provider: CLEMENCIA ESPINAL Report Released Date/Time: Sep 27, 2024 03:20 PM Reporting Lab: [place] [facility] [place] [facility] [address] [facility] [address] Performing Lab: [facility] [address] [facility] [address] HEMOGLOBIN A1C 5.3 4.0-5.6 Oct 11, 2024 10:33 AM [facility] VITAMIN B12 SERUM Specimen Type: SERUM No comment entered. Ordering Provider: CLEMENCIA ESPINAL Report Released Date/Time: Sep 27, 2024 03:20 PM Reporting Lab: [facility] [place] [address] [address] Performing Lab[facility] [address] [address] VITAMIN B12 400 pg/mL 200-900 Oct 11, 2024 10:33 AM [facility] VITAMIN D (25-OH) SERUM Specimen Type: SERUM No comment entered. Ordering Provider: CLEMENCIA ESPINAL Report Released Date/Time: Sep 27, 2024 03:20 PM Reporting Lab: [facility] [place] [address] [address] Performing Lab: [facility] [address] [address] VITAMIN D (25-OH) 23 ng/mL 20-50 Oct 11, 2024 10:33 AM [facility] TSH SERUM Specimen Type: SERUM No comment entered. Ordering Provider: CLEMENCIA ESPINAL Report Released Date/Time: Sep 27, 2024 03:20 PM Reporting Lab: [facility] [place] [facility] [address] [facility] [address] Performing Lab: [place] [facility] [place] [address] [address] TSH 2.08 u[IU]/mL 0.35-5.00 Oct 11, 2024 10:33 AM [facility] BASIC METABOLIC PANEL (non-fasting) SERUM Spe cimen Type: SERUM No comment entered. Ordering Provider: CLEMENCIA ESPINAL Report Released Date/Time: Sep 27, 2024 03:20 PM Reporting Lab: [facility] [address] [facility] [address] Performing Lab: [facility] [address] [facility] [address] UREA NITROGEN 20 mg/dL 7-25 GLUCOSE 96 mg/dL 65-100 SODIUM 139 mmol/L 135-145 POTASSIUM 4.7 mmol/L 3.5-5.0 CHLORIDE 103 mmol/L 100-110 CO2 27 meq/L 20-30 CREATININE, Serum 1.16 mg/dL 0.50-1.40 eGFR(CKD-EPI 2020) 63 mL/min >60 Oct 11, 2024 10:33 AM [facility] LIVER FUNCTION SERUM Specimen Type: SERUM No comment entered. Ordering Provider: CLEMENCIA ESPINAL Report Released Date/Time: Sep 27, 2024 03:20 PM Reporting Lab: [facility] [address] [facility] [address] Performing Lab: [address] [address] PROTEIN,TOTAL 6.8 g/dL 6.0-8.3 ALBUMIN 3.9 g/dL 3.5-5.0 ALKALINE PHOSPHATASE 61 U/L 40-150 AST 13 U/L 5-34 ALT 13 U/L BILIRUBIN, TOTAL 0.9 mg/dL 0.2-1.2 Oct 11, 2024 10:33 AM [facility] LIPID PANEL, NON FASTING SERUM Specimen Type: SERUM No comment entered. Ordering Provider: CLEMENCIA ESPINAL Report Released Date/Time: Sep 27, 2024 03:20 PM Reporting Lab: [address] [address] Performing Lab: [address] [address] CHOLESTEROL 234 mg/dL H TRIGLYCERIDE 168 mg/dL H 0-150 LDL calculated 146 mg/dL H 0-129 CHOL/HDL 4.3 HDL CHOLESTEROL 54 mg/dL 40-60 Oct 11, 2024 10:33 AM [facility] CBC AND DIFF (AUTO) BLOOD Specimen Type: BLOO D No comment entered. Ordering Provider: CLEMENCIA ESPINAL Report Released Date/Time: Sep 27, 2024 03:20 PM Reporting Lab: [facility] [address] [facility] [address] Performing Lab: [facility] [address] [facility] [address] WBC 5.75 10*3/uL 4.50-11.00 RBC 5.37 10*6/uL 4.23-5.66 HGB 16.3 g/dL 12.8-17 HCT 47.2 39.2-50.4 MCV 87.9 fL 82-99 MCHC 34.5 g/dL 30.8-35.1 PLT 228 10*3/uL 140-360 RDW-CV 12.8 12.0-16.0 MONO, ABS 0.55 10*3/uL 0.30-1.10 MCH 30.4 pg 26.2-32.6 NEUT % 40.4 L 43.7-75.8 LYMPH % 43.0 H 14.0-42.3 MONO % 9.6 5.1-13.7 EOS % 5.2 0.4-6.8 BASO % 1.6 0.1-2.0 NEUT, ABS 2.33 10*3/uL 2.20-7.60 LYMPH, ABS 2.47 10*3/uL 1.00-3.20 EOS, ABS 0.30 10*3/uL 0.03-0.44 BASO, ABS 0.09 10*3/uL 0.01-0.13 IMMATURE GRAN % 0.2 0.0-0.7 IMMATURE GRAN, ABS 0.01 10*3/uL 0.00-0.0 6 NRBC % 0.0 0.0-0.0 NRBC, ABS 0.00 10*3/uL 0.00-0.00 Vital Signs: All taken on the encounter date This section contains inpatient and outpatient Vital Signs collected on the date of the Encounter. Date/Time Temperature Pulse Blood Pressure Respiratory Rate SP02 Pain Height Weight Body Mass Index Source Oct 16, 2024 11:06 AM 98 73 132/78 20 97 0 179 26 [facility] Social History: Smoking Status (Most current) and Tobacco Use (All prior to encounter date) This section includes the most current, and the historical, smoking and tobacco- related health factors from the [place] facility where the Encounter took place. Current Smoking Status This section includes the most current smoking, or tobacco-related health factor, from the [place] facility where the Encounter took place. Date/Time Current Smoking Status Comment Facil ity March 24, 2023 09:00 AM VA-TOBACCO FORMER USER [facility] ([facility]) Tobacco Use History This section includes a history of the smoking, or tobacco-related health factors, that were collected on or before the date of the Encounter. The data comes from the [place] facility where the Encounter took place. Date/Time Smoking Status/Tobacco Use Comment F acility March 24, 2023 09:00 AM VA-TOBACCO QUIT 15 YRS OR MORE [facility] ([facility]) March 25, 2022 02:00 PM VA-TOBACCO NEVER USED [facility] ([facility]) Nov 19, 2020 04:14 PM VA-TOBACCO FORMER USER [facility] ([facility]) Nov 19, 2020 04:14 PM VA-TOBACCO QUIT 15 YRS OR MORE [facility] ([facility]) Jun 27, 2019 11:08 AM VA-TOBACCO FORMER USER [facility] ([facility]) Jun 27, 2019 11:08 AM VA-TOBACCO QUIT 15 YRS OR MORE [facility] ([facility]) May 23, 2018 01:01 PM QUIT TOBACCO USE > 7 YEARS AGO quit 30yrs ago [facility] ([facility]) Apr 28, 2018 01:18 PM QUIT TOBACCO USE > 7 YEARS AGO quit 42 years ago, used to smoke 1 pack daily [facility] ([facility]) Encounter Notes: All associated encounter notes This section contains the clinical notes associated to the Encounter. Date/Time Encounter Note(s) Provider Source Oct 16, 2024 11:15 AM PHYSICIAN NOTE: LOCAL TITLE: NOTE STANDARD TITLE: PHYSICIAN NOTE DATE OF NOTE: OCT 16, 2024@11:15 ENTRY DATE: OCT 16, 2024@11:15:52 AUTHOR: KEALY,SHEVAUGHN M EXP COSIGNER: URGENCY: STATUS: COMPLETED PRIMARY CARE VISIT LAUREN HERNANDES, is a 83 yo WHITE MALE who [facility] the [place] [facility]. TYPE OF VISIT: Face to face HPI: [place] presents to reestablish care at the [facility] he has been going to [place] for the last few years he has a past medical history of hyperlipidemia, hypertension and elevated PSA PSA no longer being followed by urology. Medications being prescribed by cardiology and outside providers. He does have a history of ectopic beats and has been followed by cardiology has next appointment on November 11. States he has had a recent stress test. Also concerned about decreased exercise tolerance he says long distance walking causes a little more shortness of breath than usual but he does exercise pretty frequently. Denies chest pain Healthcare Providers: PCP - [facility] CARDIOLOGY - Dr. Hogan , [facility] GI - CC - Dr. Kelly RHEUMATOLOGY - CC - Dr. Bia Noble UROLOGY - Dr. Gaona [facility] - [place] PULMONOLOGY - Dr. Alcocer - previously RESPIRATORY - [place] - CPAP re: [facility] non-VA DERMATOLOGY - Dr. Pressley, [place] Social history Tobacco 1 pack/day x 25 years, discontinued 40 years ago Lives with roomates Etoh 2-3 every few days. 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 CARDIOVASCULAR: No chest pain, palpitations, or increased pedal edema RESPIRATORY: No SOB, cough, sputum, wheeze. GASTROINTESTINAL: Denies abd pain, N/V/D. No melena or hematochezia. No tenesmus or constipation. GENITOURINARY: No burning micturition. No urinary frequency or urgency. No nocturia. MUSCULOSKELETAL: No myalgias or arthralgias. PSYCHIATRIC: No new anxiety or depression. No sleep disturbance. NEUROLOGIC: No headaches, dizziness, numbness or tingling in the extremities, or unilateral weakness. EXAMINATION General: Well-appearing [place] in no obvious distress. Mental Status: Alert and oriented x4. Head: Normocephalic. Eyes: PERRLA. EOMI. Anicteric sclerae. ENT: Moist oral mucosa. Posterior pharynx unremarkable Neck: Supple. No JVD. No LAD. No bruit. Lungs: Clear bilaterally without wheeze or rhonchi. Normal effort and expansion. CV: Heart sounds S1, S2. RRR. No M/G/R. + occassional ectopic beats No peripheral edema GI: Abdomen is soft and nontender. No palpable mass. : No CVA tenderness. Ext: No cyanosis or clubbing. No gross deformities. Neuro: CN II through XII grossly intact. Normal speech. Normal gait. Integument: Skin warm and dry. No rashes or lesions on visible areas. Psych: Normal mood and affect. Normal judgment. ALLERGIES: ========= Patient has answered NKA >> HEALTH MAINTENANCE PREVENTIVE MEDICINE GOALS Melanoma Follow-up Jun 15 Medication Reconciliation DUE NOW (Optional) Whole Health Documentation DUE NOW ASSESSMENT/PLAN: Active problems - Computerized Problem List is the source for the followin. Malignant melanoma 2. Seborrhoeic dermatitis of scalp 3. Tinea pedis 4. Hyperlipidemia ([facility] [id number]) 5. Solitary nodule of lung 6. Polymyalgia rheumatica 7. Depressive disorder 8. Obstructive Sleep Apnea Syndrome ([facility] [id number]) 9. GERD - Gastro-Esophageal Reflux Disease ([facility] [id number]) 10. Sjogren's syndrome 11. HTN-Hypertension ([facility] [id number]) 12. Benign Prostatic Hypertrophy With Outflow Obstruction ([facility] [id number]) 13. Ta's Esophagus ([facility] [id number]) 14. History of polyp of colon == HLD: 146 - At goal - Discussed fiber supplementation - Continue healthy habits == HTN - At goal - Continue current meds == GERD - [address] Leticia Houston [place] - Hx Ta's esophagus scheduled for repeat EGD November 2024 with colonoscopy- asymptomatic on DEXLANSOPRAZOLE == Sjogren's syndrome - stable == Benign Prostatic Hypertrophy With Outflow Obstruction - Stable urinary output on tamsulosin 0.4mg BID - previously seen by Dr. Gaona, declined further treatment - denies urinary issues at this time, f/u PRN == Elevated PSA - 09/2022 PSA 7.03 ng/mL (4.3 ng/mL 07/2018). - [facility] notes from 12/22/21 in [place]. Reports to have underwent a MRI of prostate which showed no suspicious lesions, PI-RADS=1 and PSA was 7.1. The plan was given the negative MRI, low risk of clinically significant prostate cancer and to observe PSA in 6m and x-ray for comparison. == OA - Stable == Lung Nodule - CT CHEST 07/10/2020: New 3-4 mm right upper lobe nodule. Rec: chest CT in 1yr. Previously seen 4 mm right lung base nodule has resolved in the interval. - Asymptomatic - Agrees with repeat imaging == Palpitations - Chronic, intermittent - Return precautions discussed == TITUS - Non-compliant with CPAP - Agrees to reach out to [place] RESP == Malignant Melanoma --> h/o per report. Summer 2023 - Previously followed by non-VA Dermatology in [place]. - No evidence of recurrence HCM == History of polyp of colon - due 2024 FOLLOW UP: RTC Below & sooner PRN UPCOMING APPOINTMENTS: 12/26/2024 14:15 COM CARE-GI GENERAL On the day of the encounter I spent 50 minutes on some or all of the following: chart review including all recent specialist gift consultant visits, history, physical examination, treatment planning, education and counseling of the patient/family/caregiver, m communicating with other health care providers, and documentation in the Electronic health record No barriers; Patient understands and agrees to current treatment plan. If pt has any questions, concerns, or changes in current health status he/she will call or come in to the [facility]. /ezekiel/ CLEMENCIA ESPINAL MD PHYSICIAN Signed: 10/18/2024 08:54 CLEMENCIA ESPINAL ([facility]) Oct 16, 2024 11:06 AM PREVENTIVE MEDICIN E NURSING NOTE: LOCAL TITLE: CLINICAL REMINDERS/NURSING STANDARD TITLE: PREVENTIVE MEDICINE NURSING NOTE DATE OF NOTE: OCT 16, 2024@11:06 ENTRY DATE: OCT 16, 2024@11:06:54 AUTHOR: HANNA PALACIO COSIGNER: URGENCY: STATUS: COMPLETED Advance Directive Screen MH AD: Patient does not have an Advance Directive completed and is requesting more information. Pper copy given to The patient received education about Advance Directives and written notification of his/her rights. Colonoscopy GAP Reminder: Recommendations are needed in the clinical reminder system following the patient's most recent colorectal cancer screening/surveillance test (Colonoscopy, Sigmoidoscopy or CT Colonography) Additional CRC screening/surveillance testing was completed elsewhere and we are waiting for results. Results expected: Colonoscopy, Other Comment: has procedure scheduled for 11/16/2024 Pneumococcal Conjugate Vaccine (PCV15/PCV20): Defer due to a PRECAUTION Reason: refused Influenza Immunization: Deferral / Refusal Deferred due to a precaution (i.e., acute illness, etc.) COVID-19 Immunization: Defer due to a PRECAUTION Reason: pending date Herpes Zoster (Shingles) Vaccine: Defer due to a PRECAUTION Reason: refused RHS Screen: RHS Screen Session Format: Face to Face Environmental Check Upon inquiry, the individual reports that the environment is safe to proceed. Informed Consent to Screen and Document The individual consents to proceed with screening. The individual consents to documentation of responses. PRIMARY SCREEN: In the past 12 months, how often did a current or former intimate partner (e.g., boyfriend, girlfriend, , , sexual partner): 1. Scream or curse at you Never 2. Insult or talk down to you Never 3. Threaten you with harm Never 4. Physically hurt you Never 5. Force or pressure you to have sexual contact against your will, or when you were unable to say no Never The HITS tool (items 1-4 above) is US copyright protected by Saul Tucker MD, and the user has full rights to use it throughout the [facility] system. PRIMARY SCREEN RESULT: The Primary Screen is NEGATIVE. The individual answered never to all forms of IPV above (i.e., answered never to all 5 items) The individual accepts education and/or resources: No EDUCATION: The individual indicated readiness to learn. Education offered during this session as noted above. The individual indicated understanding by asking relevant questions and making appropriate comments. No barriers to learning were observed or identified. 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 Narr. - Drusen of Macula,Bilateral Action: Patient has a future eye care appointment scheduled within the next 90 days. Date of Appointment: done yearly with [facility] // HANNA PALACIO LPN LICENSED PRACTICAL NURSE Signed: 10/16/2024 11:11 HANNA PALACIO ([facility])
--- OUTSIDE RECORDS SUMMARY | 2025-06-13 23:59 | XMS_ITS | Continuity of Care Document ---
Author Organization [facility] Address [address] [place] [address]- Care Team Providers Care Secondary Spanish Teacher Name Role Phone Butch DOLL EYE SETTER, Adrienne Harrison Primary Care Physician Encounter [facility] Date(s): 05/14/25 - 06/13/25 [facility] [address] [place] [address]- Attending Physician: Solo Webster Admitting Physician: Solo Webster Referring Physician: Solo Webster Referring Physician: Kajal Arredondo Encounter Type: Triage Allergies, Adverse Reactions, Alerts No Known Allergies Medications CPAP Machine See Instructions, # 1 each, Refills 11, Tot. 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 Length of Need 99 Months [facility], 08/13/17 9:00:59 AM EDT, Compound Start Date: 08/13/17 Status: Ordered Quantity: 1.0 Unit: each Repeat number: 12 lisinopril 40 mg oral tablet 1 tablet = 40 mg, By Mouth, Daily, # 90 tablet, 3 Refills, Maintenance, 11/13/24 10:43:00 AM EST, Tablet, [facility], Partial fill upon patient request if the prescription is for a schedule IIopioid drug., 177.8, cm, 11/13/24 10:28:00 EST, Height Start Date: 11/13/24 Status: Ordered Quantity: 90.0 Unit: tablet Repeat number: 4 Magnesium Oxide By Mouth, 0 Refills, Maintenance, 08/12/17 3:49:29 PM EDT Start Date: 08/12/17 Status: Ordered Repeat number: 1 metoprolol 50 mg oral tablet, extended release 50 mg, 1, tablet, By Mouth, 2 times a day, # 180 tablet, Refills 3, Tot. Refills 3, Maintenance, 05/14/25 1:30:00 PM EDT, Route to Pharmacy Electronically, [facility], Partial fill upon patient request if the prescription is for a schedule II opioid drug., 177.8, cm, 05/14/25 13:25:00 EDT, Height, 81, kg, 05/07/25 10:53:00 EDT, Dry Weight Start Date: 05/14/25 Status: Ordered Quantity: 180.0 Unit: tablet Repeat number: 4 Miscellaneous Rx 0 Refills, Maintenance, Vit.D Calmeg, daily, 02/01/23 9:20:00 AM EDT Start Date: 02/01/23 Status: Ordered Repeat number: 1 Miscellaneous Rx 0 Refills, Maintenance, DEXILANT, DAILY, 11/13/24 10:30:00 AM EST Start Date: 11/13/24 Status: Ordered Repeat number: 1 Omeprazole By Mouth, Daily, 0 Refills, Maintenance, 05/07/25 10:57:00 AM EDT, Partial fill upon patient request if the prescription is for a schedule II opioid drug. Start Date: 05/07/25 Status: Ordered Repeat number: 1 tamsulosin 0.4 mg oral capsule 0.4 mg, 1, capsule, By Mouth, 2 times a day, # 30 capsule, Refills 0, Maintenance, 02/25/23 2:44:00 PM EDT, Partial fill upon patient request if the prescription is for a schedule II opioid drug. Start Date: 02/25/23 Status: Ordered Quantity: 30.0 Unit: capsule Repeat number: 1 Problem List Condition Confirmation Course Effective Dates Status H ealth Status Informant Arrhythmia Confirmed Active Dizziness Confirmed Active GERD (gastroesophageal reflux disease) Confirmed Active Hypertension Confirmed Active TITUS (obstructive sleep apnea) 1 Confirmed Active Paroxysmal supraventricular tachycardia 2 Confirmed Active 1AHI 23.7, [facility], 05/07/17. CPAP 7 cm H2O reduced AHI to 1.0, [facility], 07/05/17. 26 beat run of PSVT, rate 133, documented on 05/07/17 PSG Social History Social History Type Response Smoking Status Former smoker; Type: Cigarettes; Tobacco use times per day: 1 pack per day; Stopped at age: 42; entered on: 08/12/17 Sex Sex Representation Male (finding) Patient Care team information Care Team Personnel Name: Butch TELLO, Adrienne Harrison Position: [facility] Outreach Member Role: PCP Address: [address] [place] [address] Telecom: Care Team Related Persons Name: CINTIA BRAR Insurance Providers Guarantor name: LAUREN HERNANDES [facility] Plan Information #: 1 Payer: MEDICARE B Payer Identifier: CRISTIAN Member Number: [id number] Group Number: CRISTIAN Subscriber Identifier: [id number] Relationship to Subscriber: self Coverage Type: NA Coverage Verification Date: CRISTIAN Telecom: CRISTIAN Address: NA
--- NOTE | ~2025-06-15 | CT_ITS ---
CLINICAL HISTORY: R91.8 - Other nonspecific abnormal finding of lung field CT chest without contrast Comparison: 02/02/2023 Findings: The heart is normal size. There is a sliding-type hiatal hernia. There is coronary arterial calcification. The visualized thyroid and mediastinum are otherwise unremarkable. No new consolidation or effusion. 0.5 cm right lower lobe pulmonary lesion is unchanged. 0.5 cm pleural-based right lower lobe pulmonary lesion is unchanged. Bilateral lower lobe bronchiectasis is not significantly progressed. The upper abdomen is unremarkable. The bones are intact. IMPRESSION: 1. Stable right lower lobe pulmonary lesions. 2. Sliding-type hiatal hernia. 3. Bilateral lower lobe bronchiectasis not significantly changed This document has been electronically signed by: Matt Alexander MD on 06/16/2025 09:34:05
--- OUTSIDE RECORDS SUMMARY | 2025-06-15 13:07 | XMS_ITS | Clinical Summary ---
Author Organization [employer] Address [address] [place] [address] [address] [place] [address] Care Team Providers Care Rejogger Name Role Phone Lorne Luna LLD Unavailable Bentley Milligan RD Unavailable Judah Chavez PA-C Primary Care Provider [phone] Allergies No known active allergies Medications lisinopril [...] Nuclear age-related cataract, both eyes 07/19/20 23 Encounters Date Type Department Care Team Description 05/28/2025 9:00 AM EDT Office Visit [facility] [address] [place] [id number] Rodri Parker LLD 05/07/2025 9:45 AM EDT Office Visit [address] [phone] Rodri Parker LLD 04/10/2025 3:45 PM EDT Office Visit [address] [phone] [facility] 03/16/2025 8:15 AM EDT Office Visit [address] [phone] Lorne Luna LLD from Last 3 Months Social History Tobacco Use Types Packs/Day Years [...] Sign Reading Time Taken Comments Blood Pressure 120/80 05/28/2025 9:08 AM EDT Pulse 89 05/28/2025 9:08 AM EDT Temperature 36.7 C (98 F) 05/28/2025 9:08 AM EDT Respiratory Rate - - Oxygen Saturation - - Inhaled Oxygen Concentration - - Weight - - Height - - Body Mass Index - - Plan of Treatment Upcoming Encounters Date Type Department Care Team (Late st Contact Info) Description 10/12/2025 10:15 AM EST Office Visit [address] [phone] [address] Health Maintenance Due Date Last Done Comments Depression Screening 1942 Lipid Panel 1942 SDOH Screening 1942 Alcohol/Substance Use Screening 1954 Pneumococcal Vaccine: 50+ Years (1 of 1 - PCV) 1992 Zoster Vaccines (1 of 2) 1992 RSV Patients and Patients Aged 60 years or older (1 - 1-dose 75+ series) 2017 COVID-19 Vaccine ( season) 2024 06/28/2024, 08/13/2023, 02/06/2022, Additional history exists Influenza Vaccine (#1) 2025 12/13/2024, 2021 Dental Oral Exam 10/11/2025 04/10/2025, , 11/13/2022, Additional history exists Dental Prophylaxis 10/11/2025 04/10/2025, 1 12/05/2023, 03/29/2024, Additional history exists Dental X-Ray: Full Mouth 11/14/2025 023, 10/14/2020, 11/20/2016, Additional history exists Tobacco Screening 04/10/2026 04/10/2025 Dental X-Ray: Bitewings 04/11/2026 04/10/20, 03/29/2024, 11/13/2022, Additional history exists DTaP/Tdap/Td Vaccines (2 - Td or Tdap) 03/25/2032 03/25/2022 HIB Vaccines Aged Out No longer eligi [...] patient's age to complete this topic Meningococcal B Vaccine Aged Out No l onger eligible based on patient's age to complete [...] Procedure Name Priority Date/Time Associated Diagnosis Comments CASE PRESENTATION, DETAILED AND EXTENSIVE TREATMENT PLANNING Routine 05/28/2025 9:00 AM EDT 10 DL RESIN-BASED COMPOSITE - 2 SURF, ANTERIOR Routine 05/28/2025 9:00 AM EDT 15 MO RESIN-BASED COMPOSITE - 2 SURF, POSTERIOR Routine 05/07/2025 9:45 AM EDT CASE PRESENTATION, DETAILED AND EXTENSIVE TREATMENT PLANNING Routine 05/07/2025 9:45 AM EDT BITEWINGS - 4 RADIOGRAPHIC IMAGES Routine 04/10/2025 3:45 PM EDT COMPREHENSIVE PERIODONTAL EVALUATION - NEW OR ESTABLISHED PATIENT Routine 04/10/2025 3:45 PM EDT PERIODIC ORAL EVALUATION - ESTABLISHED PATIENT Routine 04/10/2025 3:45 PM EDT CASE PRESENTATION, DETAILED AND EXTENSIVE TREATMENT PLANNING Routine 04/10/2025 3:45 PM EDT PROPHYLAXIS - ADULT Routine 04/10/2025 3 :45 PM EDT CASE PRESENTATION, DETAILED AND EXTENSIVE TREATMENT PLANNING Routine 03/16/2025 8:15 AM EDT REPAIR RESIN PARTIAL DENTURE BASE, MAX Routine 03/16/2025 8:15 AM EDT INTRAORAL - COMPLETE SERIES OF RADIOGRAPHIC IMAGES Routine 11/13/2022 8:30 AM EST Encounter for dental examination from Last 3 Months or Most Recently Relevant to Health [place] [id number] [facility] F[facility] H[facility] FULL DENTAL - HSN FULL (MEDICAID) DENTAL - HSN FULL (MEDICAID) Care Teams Rejogger Relationship Specialty Start Date End Date Judah Chavez PA-C [address] [place] [address] PCP - General Family Medicine 02/23/24 Lorne Luna LLD [address] [place] [id number] Dentist 10/21/23 Bentley Milligan [facility] [address] [place] [address] Dental Content Specialist 10/21/23
--- OUTSIDE RECORDS SUMMARY | 2025-06-15 13:07 | XMS_ITS | Clinical Summary ---
Author Organization [facility] Address [address] [place] [address] [place] [place] [phone] Phone Care Team Providers Care Aircraft Inspector Name Role Phone Gonzales Cai MD Primary Care Provider Allergies No known active allergies Medications amLODIPine (NORVASC) 10 MG tablet Take 10 mg by mouth daily. Active dexlansoprazole (DEXILANT) 30 mg capsule Take 60 mg by mouth daily. Active metoprolol tartrate (LOPRESSOR) 50 MG tablet Take 50 mg by mouth 2 (two) times a day. Active tamsulosin (FLOMAX) 0.4 mg Cap Take 0.4 mg by mouth 2 (two) times a day. Active calcium carbonate 1,250 mg (500 mg elemental) capsule Take 1,200 mg by mouth daily. Pio mag Active cholecalciferol (VITAMIN D3) 400 unit tablet Take 1,600 Units by mouth daily. Active cyclobenzaprine (FLEXERIL) 10 MG tabletIndicatio ns:Acute midline low back pain without sciatica Take 1 tab twice daily as needed 60 tablet 0 Active vit C/E/Zn/coppr/oswaldo tein/zeaxan (PRESERVISION AREDS-2 ORAL) TAKE 1 CAPSULE BY MOUTH TWICE DAILY IN THE MORNING AND EVENING, WITH FOOD 2 Active dexlansoprazole delayed release (DEXILANT) 60 mg capsule 2 Active lisinopril (PRINIVIL,ZESTR IL) 10 MG tablet Take 10 mg by mouth. 4 Active albuterol 90 mcg/actuation inhalerIndicati ons:Pneumonia of right lower lobe due to infectious organism Inhale 1-2 puffs into the lungs every 4 (four) hours as needed for wheezing or shortness of breath/dyspnea . 8 g 4 Active inhaler spacing device (AEROCHAMBER,BR EATHERITE) SpcrIndications :Pneumonia of right lower lobe due to infectious organism Inhale 1 each into the lungs every 4 (four) hours as needed. 1 each 4 Active omeprazole (PRILOSEC) 40 MG capsule Take 40 mg by mouth daily. 5 Active Active Problems Problem Noted Date Diagnosed Date History of polymyalgia rheumatica 08/29/2020 Assessment & Plan (10/12/2020 8:49 PM EST): I reviewed with patient chronic, autoimmune mediated nature of polymyalgia rheumatica and its frequent coexistence with temporal arteritis that would require much higher prednisone dosin mg/kg body weight/day. Since he developed severe rash to Plaquenil I would not restart it. He is opposed to trying methotrexate as another steroid sparing medication . Continue daily turmeric as he finds it helpful. Continue gentle, regular exercise routine. Well-balanced nutritionally diet. Proper hydration. Avoid sick contacts, falls or injuries. Get yearly influenza & pneumonia vaccination ARNALDO. In view of long-term prednisone therapy particularly more important than previous years that he was not taking steroids= explained to patient again today with reminder that this year is additional threat of COVID-19 infection. Assessment & Plan (09/01/2020 10:42 AM EST): I reviewed with patient chronic, autoimmune mediated nature of polymyalgia rheumatica and its frequent coexistence with temporal arteritis that would require much higher prednisone dosin mg/kg body weight/day. Since he developed severe rash to Plaquenil I would not restart it. He is opposed to trying methotrexate as another steroid sparing medication . Continue daily turmeric as he finds it helpful. Continue gentle, regular exercise routine. Well-balanced nutritionally diet. Proper hydration. Avoid sick contacts, falls or injuries. Get yearly influenza & pneumonia vaccination preferably by the end of August 2020. In view of long-term prednisone therapy particularly more important than previous years that he was not taking steroids= explained to patient again today with reminder that this year is additional threat of COVID-19 infection. Encounter for monitoring ibandronate therapy Assessment & Plan (11/18/2019 7:39 PM EST): Labs stable-carefully continue as prescribed. Monitor for any developing side effects within 48 hours of monthly oral Boniva dose. PMR (polymyalgia rheumatica) 06/26/2019 Assessment & Plan (11/17/2019 12:23 PM EST): I reviewed with patient chronic, autoimmune mediated nature of polymyalgia rheumatica and its frequent coexistence with temporal arteritis that would require much higher prednisone dosin mg/kg body weight/day. Since he developed severe rash to Plaquenil I would not restart it. He is opposed to trying methotrexate as another steroid sparing medication . At this time I suggested him to carefully decrease prednisone by 0.5 mg every 2- 3 weeks as tolerated. Continue daily turmeric as he finds it helpful. Continue gentle, regular exercise routine. Well-balanced nutritionally diet. Proper hydration. Avoid sick contacts, falls or injuries. Get yearly influenza & pneumonia vaccination In view of long-term prednisone therapy particularly more important than previous years that he was not taking steroids= explained to patient today. Assessment & Plan (09/01/2019 9:24 AM EDT): I reviewed with patient chronic, autoimmune mediated nature of polymyalgia rheumatica and its frequent coexistence with temporal arteritis that would require much higher prednisone dosin mg/kg body weight/day. Since he developed severe rash to Plaquenil I would not restart it. He is opposed to trying methotrexate as another steroid sparing medication . At this time I suggested him to carefully decrease prednisone by 0.5 mg every 2- 3 weeks as tolerated. Continue daily turmeric as he finds it helpful. Continue gentle, regular exercise routine. Well-balanced nutritionally diet. Proper hydration. Avoid sick contacts, falls or injuries. Get yearly influenza vaccination within next week In view of long-term prednisone therapy particularly more important than previous years that he was not taking steroids= explained to patient today. Assessment & Plan (06/26/2019 10:42 PM EDT): I reviewed with patient chronic, autoimmune mediated nature of polymyalgia rheumatica and its frequent coexistence with temporal arteritis that would require much higher prednisone dosin mg/kg body weight/day. Since he developed severe rash to Plaquenil I would not restart it. He is opposed to trying methotrexate as another steroid sparing medication . At this time I suggested him to carefully decrease prednisone by 0.5 mg every 2- 3 weeks as tolerated. Continue daily turmeric as he finds it helpful. Continue gentle, regular exercise routine. Well-balanced nutritionally diet. Proper hydration. Avoid sick contacts, falls or injuries. Get yearly influenza vaccination by mid August 2019 In view of long-term prednisone therapy particularly more important than previous years that he was not taking steroids= explained to patient today. Osteopenia of multiple sites 06/26/2019 Assessment & Plan (11/17/2019 12:28 PM EST): Continue monthly Boniva the same day each month exactly as instructed. Proper calcium and vitamin D supplementation. Daily weightbearing exercises. Fall and fracture prevention strategies. Assessment & Plan (09/01/2019 9:25 AM EDT): Continue monthly Boniva the same day each month exactly as instructed. Proper calcium and vitamin D supplementation. Daily weightbearing exercises. Fall and fracture prevention strategies. Assessment & Plan (06/26/2019 10:45 PM EDT): Continue monthly Boniva the same day each month exactly as instructed. Proper calcium and vitamin D supplementation. Daily weightbearing exercises. Fall and fracture prevention strategies. retirement current use of systemic steroids 06/26 Assessment & Plan (11/17/2019 12:28 PM EST): Gently taper as tolerated by 0.5 mg every 2-3 weeks. Consider switching to extended release preparation of prednisone = Kellie taken typically around 10 PM. Daily calcium and vitamin D supplementation. Regular weightbearing exercises. Fall prevention strategies. Monitor for multiple side effects including but not limited to mood swings, increased intraocular and systemic pressure, diabetes, osteoporosis, fluid retention, increased appetite, risk of infection, bruising, hair thinning etc. Assessment & Plan (09/01/2019 9:25 AM EDT): Gently taper as tolerated by 0.5 mg every 2-3 weeks. Consider switching to extended release preparation of prednisone = Kellie taken typically around 10 PM. Daily calcium and vitamin D supplementation. Regular weightbearing exercises. Fall prevention strategies. Monitor for multiple side effects including but not limited to mood swings, increased intraocular and systemic pressure, diabetes, osteoporosis, fluid retention, increased appetite, risk of infection, bruising, hair thinning etc. Assessment & Plan (06/26/2019 10:47 PM EDT): Gently taper as tolerated by 0.5 mg every 2-3 weeks. Consider switching to extended release preparation of prednisone = Kellie taken typically around 10 PM. Daily calcium and vitamin D supplementation. Regular weightbearing exercises. Fall prevention strategies. Monitor for multiple side effects including but not limited to mood swings, increased intraocular and systemic pressure, diabetes, osteoporosis, fluid retention, increased appetite, risk of infection, bruising, hair thinning etc. 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 Keep headboard elevated at 45 angle for nighttime. Reviewed with patient need for close follow-up with emergency man as scheduled. Assessment & Plan (09/01/2020 10:37 AM EST): Avoid late, large, spicy meals. Keep headboard elevated at 45 angle for nighttime. Reviewed with patient need for close follow-up with emergency man as scheduled. Assessment & Plan (11/17/2019 12:27 PM EST): Avoid late, large, spicy meals. Keep headboard elevated at 45 angle for nighttime. Reviewed with patient need for close follow-up with emergency man as scheduled. Strongly encouraged diligent adherence to instructions of monthly oral Boniva and educated to take it on the same day of the month for example first of the month each month to improve compliance and decrease risk of side effects. Assessment & Plan (09/01/2019 9:24 AM EDT): Avoid late, large, spicy meals. Keep headboard elevated at 45 angle for nighttime. Reviewed with patient need for close follow-up with emergency man as scheduled. Strongly encouraged diligent adherence to instructions of monthly oral Boniva and educated to take it on the same day of the month for example first of the month each month to improve compliance and decrease risk of side effects. Assessment & Plan (06/26/2019 10:44 PM EDT): Avoid late, large, spicy meals. Keep headboard elevated at 45 angle for nighttime. Reviewed with patient need for close follow-up with emergency man as scheduled. Strongly encouraged diligent adherence to instructions of monthly oral Boniva and educated to take it on the same day of the month for example first of the month each month to improve compliance and decrease risk of side effects. Sicca 06/26/2019 Assessment & Plan (10/09/2020 9:15 AM EST): Keep well-hydrated. Avoid spicy and acidic foods. Diligent mouth hygiene. Regular dental checkups. Assessment & Plan (09/01/2020 10:40 AM EST): Keep well-hydrated. Avoid spicy and acidic foods. Diligent mouth hygiene. Regular dental checkups. Assessment & Plan (11/17/2019 12:28 PM EST): Keep well-hydrated. Avoid spicy and acidic foods. Diligent mouth hygiene. Regular dental checkups. Assessment & Plan (09/01/2019 9:25 AM EDT): Keep well-hydrated. Avoid spicy and acidic foods. Diligent mouth hygiene. Use lubricating eyedrops as needed. Proper sun protection. Regular dental and ocular checkups checkups. Assessment & Plan (06/26/2019 10:48 PM EDT): Keep well-hydrated. Avoid spicy and acidic foods. Diligent mouth hygiene. Use lubricating eyedrops as needed. Proper sun protection. Regular dental and ocular checkups checkups. PAC (premature atrial contraction) 04/09/2019 Essential hypertension 12/21/2017 Palpitations 09/15/2017 PVC's (premature ventricular contractions) 09/15 Atypical chest pain 09/15/2017 Resolved Problems Problem Noted Date Diagnosed Date Resolved Date Acute midline low back pain without sciatica 0 10/09/2020 Assessment & Plan (09/01/2020 10:40 AM EST): Avoid bending, stooping, heavy lifting, sudden turns, falls, injuries or overuse. Use warm pack versus warm shower prior to gentle, regular core muscle strengthening exercises. Keep body weight in ideal range for his height. Topical cream versus patch 2-3 times daily and if necessary at bedtime x 3 weeks. Consider adding vitamin B12 supplements to optimize serum level and stabilize neuronal function. Hyperuricemia 11/17/2019 10/09/2020 Assessment & Plan (10/09/2020 9:15 AM EST): I have explained the metabolic nature of gout that may develop if prolonged and increasing hyper uricemia is not addressed. I explained to him benefits of decreasing serum uric acid below its saturation point that is at 6 mg %. It reduces or if chronically lower than 6 mg % eliminates formation of crystals that are triggering gouty attacks and increasing risk of uric acid renal stone formation. He was provided with pamphlet on low purine diet and asked to follow diligently. Proper hydration stressed to patient again. Call if problems or questions. Assessment & Plan (09/01/2020 10:36 AM EST): I have explained the metabolic nature of gout that may develop if prolonged and increasing hyper uricemia is not addressed. I explained to him benefits of decreasing serum uric acid below its saturation point that is at 6 mg %. It reduces or if chronically lower than 6 mg % eliminates formation of crystals that are triggering gouty attacks and increasing risk of uric acid renal stone formation. He was provided with pamphlet on low purine diet and asked to follow diligently. Proper hydration stressed to patient again. Call if problems or questions. Assessment & Plan (11/18/2019 7:37 PM EST): I have explained the metabolic nature of gout that may develop if prolonged and increasing hyper uricemia is not addressed. I explained to him benefits of decreasing serum uric acid below its saturation point that is at 6 mg %. It reduces or if chronically lower than 6 mg % eliminates formation of crystals that are triggering gouty attacks and increasing risk of uric acid renal stone formation. He was provided with pamphlet on low purine diet and asked to follow diligently. Proper hydration stressed to patient again. Call if problems or questions. Family History Medical History Relation Comments Hypertension Mother Relation Status Comments Mother Social History Tobacco Use Types Packs/Day Years Used Date Smoking Tobacco: Former Cigarettes Smokeless Tobacco: Never Tobacco Cessation:Counseling Given: Not Answered Comments:quit 35 years ago Alcohol Use Standard Drinks/Week Comments Yes 0 (1 standard drink = 0.6 oz pur e alcohol) 2 weekly Education Answer Date Recorded Are you interested in more education? Not on kecia e 02/26/2023 Are you concerned about learning? Not on file 02/26/2023 No 02/26/2023 No 02/26/2023 Digital Access Answer Date Recorded No 03/27/2023 No 03/27/2023 Reliable internet access at home? Not on file 03/27/2023 Device with a working camera? Not on file Intimate Partner Violence Answer Date R ecorded Are you denied basic needs s uch as food, clothing, or medical care? No 01/29/2025 In the past 12 months have y ou been in a relationship with a person who hurts, threatens, or tries to control you? No 01/29/2025 Are you denied basic needs s uch as food, clothing, or medical care? No 01/29/2025 In the past 12 months have y ou been in a relationship with a person who hurts, threatens, or tries to control you? No 01/29/2025 Sex and Gender Information Value Date Recorded Sex Assigned at Not on file Legal Sex Male 10:11 PM EDT Gender Identity Not on file Sexual Orientation Not on file Last Filed Vital Signs Vital Sign Reading Time Taken Comments Blood Pressure 98/66 01/29/2025 12:05 PM EDT Pulse 68 01/29/2025 12:05 PM EDT Temperature 36.5 C (97.7 F) 01/29/2025 10:20 AM EDT Respiratory Rate 15 01/29/2025 12:05 PM EDT Oxygen Saturation 96% 01/29/2025 12:05 PM EDT Inhaled Oxygen Concentration - - Weight 79.4 kg (175 lb) 01/23/2025 9:19 AM EDT Height 177.8 cm (5' 10 ) 01/23/2025 9:19 AM EDT Body Mass Index 25.11 01/23/2025 9:19 AM EDT Plan of Treatment Health Maintenance Due Date Last Done Comments DEPRESSION SCREENING 1954 PNEUMOCOCCAL VACCINES (50+ years) (1 of 1 - PCV) 1992 ZOSTER VACCINES (1 of 2) 1992 RSV VACCINE (1 - 1-dose 75+ series) 2017 CREATININE LEVEL 08/29/2021 08/29/2020 POTASSIUM LEVEL 08/29/2021 08/29/2020 COVID-19 VACCINE ( - season) 2024 06/28/2024, 08/13/2023, 12/18/2020, Additional history exists BLOOD PRESSURE 04/20/2025 10/20/2024 Adult Td,Tdap Booster 03/25/2032 03/25/2022, 010 HEPATITIS A VACCINES Aged Out No long er eligible based on patient's age to complete this topic HIB VACCINES Aged Out No longer eligi ble based on patient's age to complete this topic MENINGOCOCCAL VACCINES (ACWY) Aged Out No longer eligible based on patient's age to complete this topic MENINGOCOCCAL VACCINES (B) Aged Out N o longer eligible based on patient's age to complete this topic Medical Devices Not on file Procedures Procedure Name Priority Date/Time Associated Diagnosis Comments COMPREHENSIVE METABOLIC PANEL Routine 08/29/2020 9:05 AM EDT History of polymyalgia rheumatica Sicca, unspecified type from Last 3 Months or Most Recently Relevant to Health Maintenance Results * (ABNORMAL) Comprehensive metabolic panel (08/29/2020 9:05 AM EDT) SODIUM 139 133 - 146 mmol/L [facility] POTASSIUM 4.2 3.3 - 5.1 mmol/L [facility] CHLORIDE 100 96 - 108 mmol/L [facility] CO2 28 21 - 35 mmol/L [facility] BUN 15 6 - 19 mg/dL [facility] CREATININE 0.90 0.5 - 1.5 mg/dL [facility] GLUCOSE 106(H) 70 - 99 mg/dL [facility] ALBUMIN 4.4 3.9 - 4.8 g/dL [facility] TOTAL PROTEIN 7.1 6.5 - 8.0 g/dL [facility] CALCIUM 10.2 8.4 - 10.3 mg/dL [facility] ALKALINE PHOSPHATASE 74 39 - 117 U/L [facility] TOTAL BILIRUBIN 0.6 0.0 - 1.2 mg/dL [facility] AST 18 0 - 37 U/L [facility] ALT 12 0 - 40 U/L [facility] GLOBULIN 2.7 1 - 4.8 g/dL [facility] EGFR 82 >59 mL/min/1.7 3m2 [facility] Comment:Estimated glomerular filtration rate calculated using the CKD-EPI equation. ANION GAP 15 10 - 20 mmol/L [facility] Blood 08/29/2020 9:05 AM EDT 08/29/2020 9:11 AM EDT Bia Noble MD LAB BLOOD ORDERABLES Fin al Result [address] [id number] from Last 3 Months or Most Recently Relevant to Health Maintenance Insurance MEDICARE PART A & B [facility] A & [place] [id number] [facility] & B MEDICARE PART A & [place] [address] [place] [address] MEDICARE PART A & B [facility] MEDICARE PART A & [place] [address] [place] [address] MEDICARE PART A & B [facility] MEDICARE PART A & B Member Subscriber Plan / Payer (Ef fective 2007-Present) Name:James Lockett Member ID:[id number] Relation to Subscriber:Self Name:James Lockett Subscriber ID:[id number] Payer ID:[id number] Group ID:Not on file Type:Medicare Address: [employer] [address] [place], [place] [id number] [address] [facility] MEDICARE PART A & B [facility] Care Teams Aircraft Inspector Relationship Specialty Start Date End Date Gonzales Cai MD PCP - General Family Medicine 01/29/25 Additional Source Comments The information contained in this document represents components of the legal health record. It is not the complete legal health record.[facility]
--- OUTSIDE RECORDS SUMMARY | 2025-06-15 13:07 | XMS_ITS | Clinical Summary ---
Author Organization [facility] Address [facility] [place] [address] Care Team Providers Care Bioinformatics Programmer Name Role Phone Unknown Primary Care Provider Unavailabl e Allergies No known active allergies Medications CHOLECALCIFEROL, VITAMIN D3, (VITAMIN D-3 ORAL) 05/07/2010 Active DEXLANSOPRAZOLE (DEXILANT) 30 mg CpDM 30 MG = 1 Capsule(s), PO, Twice daily 10/27/2010 Active lisinopril (PRINIVIL;ZESTRI L) 30 mg tablet Take 30 mg by [...] at Not on file Legal Sex Male 6:32 AM EST Gender Identity Not on file Sexual Orientation Not on file Occupation Industry 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
== END 2025-06-15 13:05 | disposition home or self-care (01) ==
LOC: HO.CT 13:04
PROVIDERS: Visit Provider Nurse Practitioner Family
DX: R91.8 Other nonspecific abnormal finding of lung field (principal); M35.00 Sjogren syndrome, unspecified
CPT/HCPCS: 71250

== ENCOUNTER → 2025-06-15 13:06 | Outpatient (BNV) | payer OTHER, SELFPAY | PROVIDERS: Visit Provider Specialist | DX: J47.9 Bronchiectasis, uncomplicated (principal) | CPT/HCPCS: 71250 ==

== ENCOUNTER 2025-07-10 07:49 | Outpatient (REF) | payer OTHER, SELFPAY ==
--- OUTSIDE RECORDS SUMMARY | 2025-07-10 07:53 | XMS_ITS | Clinical Summary ---
Author Organization [facility] Address [facility] [place] [address] Care Team Providers Care Diamond Powder Technician Name Role Phone Unknown Primary Care Provider [...] 75+ series) 2017 Covid-19 Vaccine (1 - season) 2025 Influenza (Flu) vaccine (1 o f 1 - Influenza standard series) 07/02/2025 Care Teams Diamond Powder Technician Relationship Specialty Start Date End Date Unknown None PCP - General 06/01/22
--- OUTSIDE RECORDS SUMMARY | 2025-07-10 07:53 | XMS_ITS | Clinical Summary ---
Author Organization [employer] Address [address] [place] [address] 7 [place] [address] Care Team Providers Care Flatbed Press Operator Name Role Phone Lorne Luna LLD Unavailable Bentley Milligan RD Unavailable Judah Chavez PA-C Primary Care Provider [phone] Allergies No known active allergies Medications lisinopril [...] Description 05/28/2025 9:00 AM EDT Office Visit [facility] [address] [place] [phone] Rodri Parker LLD 05/07/2025 9:45 AM EDT Office Visit [address] [address] Rodri Parker LLD 04/10/2025 3:45 PM EDT Office Visit [address] [address] [facility] Last 3 Months Social History Tobacco [...] Description 10/12/2025 10:15 AM EST Office Visit [address] [address] [place] [address] [address] Health Maintenance Due Date Last Done Comments Depression Screening 1942 Lipid Panel 1942 SDOH Screening 1942 Alcohol/Substance Use Screening 1954 Pneumococcal Vaccine: 50+ Years (1 of 1 - PCV) 1992 Zoster Vaccines (1 of 2) 1992 RSV Patients and Patients Aged 60 years or older (1 - 1-dose 75+ series) 2017 COVID-19 Vaccine ( season) 2025 06/28/2024, 08/13/2023, 02/06/2022, Additional history exists Influenza [...] ADULT Routine 04/10/2025 3 :45 PM EDT INTRAORAL - COMPLETE SERIES OF RADIOGRAPHIC IMAGES Routine 11/13/2022 8:30 AM EST Encounter for dental examination from Last 3 Months or Most Recently Relevant to Health Maintenance Insurance MEDICARE Member Subscriber Plan / Payer (Ef fective 2007-Present) Name:James Lockett Member ID:[id number] Relation to Subscriber:Self Name:James Lockett Subscriber ID:[id number] Payer ID:[id number] Group ID:Not on file Type:Medicare Address: [facility] [address] [address] [facility] FULL [facility] FULL DENTAL - HSN FULL (MEDICAID) DENTAL - HSN FULL (MEDICAID) Care Teams Flatbed Press Operator Relationship Specialty Start Date End Date Judah Chavez PA-C [address] [place] [address] PCP - General Family Medicine 02/23/24 Lorne Luna LLD [address] [place] [address] Dentist 10/21/23 Bentley Milligan RDH [address] [place] [address] Dental Bag Washer 10/21/23
--- OUTSIDE RECORDS SUMMARY | 2025-07-10 07:53 | XMS_ITS | Encounter Summary ---
Author Organization [facility] Address [address] [place] [address] Phone Care Team Providers Care Quality Assurance Coach Name Role Phone Yoshi Cerrato MD Unavailable Trevor Talbot MD Unavailable Yoshi Cerrato MD Unavailable [phone] Héctor Long MD Unavailable Juma Lemus MD Unavailable [phone] Marycarmen Molina COPING MACHINE ASSEMBLER Primary Care Provider [phone] Adrienne Rae COPING MACHINE ASSEMBLER Primary Care Provider Adrienne Rae COPING MACHINE ASSEMBLER Primary Care Provider Adrienne Rae COPING MACHINE ASSEMBLER Primary Care Provider Gonzales Cai MD Primary Care Provider Encounter Details Date Type Department Care Team (Late st Contact Info) Description 11/17/2018 Ancillary Orders [facility] [address] [facility], [address] [place] [address] Anderson Shelton MD [address] [place] [address] [email or web address] Social History Tobacco Use Types Packs/Day Years Used Date Smoking Tobacco: Former Smokeless Tobacco: Former Comments:quit 35 years ago Alcohol Use Standard Drinks/Week Comments Yes 0 (1 standard drink = 0.6 oz pur e alcohol) occassionally Sex and Gender Information Value Date Recorded Sex Assigned at Not on file Legal Sex Male 10:11 PM EDT Gender Identity Not on file Sexual Orientation Not on file documented as of this encounter Plan of Treatment Not on file documented as of this encounter Visit Diagnoses Not on filedocumented in this encounter Additional Health Concerns Infection Onset Date Last Indicated Resolved Time CoV-Risk 10/20/2024 10/20/2024 10/31/2024 1:22 AM EST documented as of this encounter Care Teams Quality Assurance Coach Relationship Specialty Start Date End Date Marycarmen Molina NP [address] [place] [address] PCP - General Family Medicine 10/10/18 03/28/19 Adrienne Rae NP [address] [place] [address] [email or web address] PCP - General Urgent Care 03/29/19 06/25/19 Adrienne Rae NP [address] [place] [address] [email or web address] PCP - General Family Medicine 06/26/19 10/19/24 Adrienne Rae NP [address] [place] [address] [email or web address] PCP - General Nurse Practitioner 10/20/24 Gonzales Gomez MD [address] [place] [address] PCP - General Family Medicine 01/29/25 Yoshi Cerrato MD [address] [place] [phone] [email or web address] Insurance Assigned Provider 08/07/17 05/13/19 Trevor Talbot MD [address] [address] [email or web address] Historical LMR Provider 08/16/17 11/08/21 Yoshi Cerrato MD [address] [place] [address] 7 [place] [phone] [email or web address] Historical LMR Provider 08/16/17 11/08/21 Héctor Long MD [address] [place] [address] 7 [place] [address] [email or web address] Historical LMR Provider 08/16/17 11/08/21 Juma Lemus MD 22 [place] [address] Historical LMR Provider 08/16/17 2 documented as of this encounter Additional Source Comments The information contained in this document represents components of the legal health record. It is not the complete legal health record.[facility]
--- OUTSIDE RECORDS SUMMARY | 2025-07-10 07:53 | XMS_ITS | Encounter Summary ---
Author Organization [employer] Address [address] [place] [address] [place] [address] Care Team Providers Care Sand Mixer Name Role Phone Sánchez Long Unassigned Primary Care Provider U Lorne Viera LL Unavailable Elie Milliganin [facility] Unavailable Judah Chavez PA-C Primary Care Provider [phone] Encounter Details Date Type Department Care Team [...] Description 10/12/2025 10:15 AM EST Office Visit [facility] [address] [place] [address] Bentley Milligan [facility] [address] [place] [address] documented as of this encounter Visit Diagnoses Not on filedocumented in this encounter Care Teams Sand Mixer Relationship Specialty Start Date End Date Sánchez Long Unasslynette PCP - General Family Medicine 06/15/23 02/22/24 Judah Chavez PA-C [address] [place] [address] PCP - General Family Medicine 02/23/24 Lorne Luna LLD [address] [place] [address] Dentist 10/21/23 Bentley Milligan RDH [address] [place], [place] [phone] Dental Property Custodian 10/21/23 documented as of this encounter
--- OUTSIDE RECORDS SUMMARY | 2025-07-10 07:53 | XMS_ITS | Clinical Summary ---
Author Organization [facility] Address [address] [place] [address] [place] [address] Phone Care Team Providers Care Battery Container Tester [employer]uminum Name Role Phone Gonzales Cai MD Primary [...] weightbearing exercises. Fall and fracture prevention strategies. 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 Assessment & Plan (09/01/2020 10:37 AM EST): Avoid late, large, spicy meals. Keep headboard elevated at 45 angle for nighttime. Reviewed with patient need for close follow-up with application support lead as scheduled. Assessment & Plan (11/17/2019 12:27 PM EST): Avoid late, large, spicy meals. Keep headboard elevated at 45 angle for nighttime. Reviewed with patient need for close follow-up with application support lead as scheduled. Strongly encouraged diligent adherence to [...] with patient need for close follow-up with application support lead as scheduled. Strongly encouraged diligent adherence to [...] with patient need for close follow-up with application support lead as scheduled. Strongly encouraged diligent adherence to [...] LEVEL 08/29/2021 08/29/2020 POTASSIUM LEVEL 08/29/2021 08/29/2020 BLOOD PRESSURE 04/20/2025 10/20/2024 INFLUENZA VACCINE (#1) 2025 12/13/2024, 2021 COVID-19 VACCINE ( - season) 2025 06/28/2024, 08/13/2023, 12/18/2020, Additional history exists Adult Td,Tdap Booster 03/25/2032 03/25/2022, 010 HEPATITIS [...] EDT) SODIUM 139 133 - 146 mmol/L [facility] POTASSIUM 4.2 3.3 - 5.1 mmol/L [facility] CHLORIDE 100 96 - 108 mmol/L [facility] CO2 28 21 - 35 mmol/L [facility] BUN 15 6 - 19 mg/dL [facility] CREATININE 0.90 0.5 - 1.5 mg/dL [facility] GLUCOSE 106(H) 70 - 99 mg/dL [facility] ALBUMIN 4.4 3.9 - 4.8 g/dL [facility] TOTAL PROTEIN 7.1 6.5 - 8.0 g/dL [facility] CALCIUM 10.2 8.4 - 10.3 mg/dL [facility] ALKALINE PHOSPHATASE 74 39 - 117 U/L [facility] TOTAL BILIRUBIN 0.6 0.0 - 1.2 mg/dL [facility] AST 18 0 - 37 U/L [facility] ALT 12 0 - 40 U/L [facility] GLOBULIN 2.7 1 - 4.8 g/dL [facility] EGFR 82 >59 mL/min/1.7 3m2 [facility] Comment:Estimated glomerular filtration rate calculated using the CKD-EPI equation. ANION GAP 15 10 - 20 mmol/L [facility] Blood 08/29/2020 9:05 AM EDT 08/29/2020 9:11 AM EDT us Bia Noble MD LAB BLOOD ORDERABLES Fin al Result [facility] [address] [place], [place] [phone] from Last 3 Months or Most Recently Relevant to Health Maintenance Insurance MEDICARE PART A & B Member Subscriber Plan / Payer (Ef fective 2007-Present) Name:James Lockett Member ID:[id number] Relation to Subscriber:Self Name:James Lockett Subscriber ID:[id number] Payer ID:[id number] Group ID:Not on file Type:Medicare Address: [facility] [employer] [facility]. [address] [place] [address] [facility] PART [facility] & B [facility] PART [facility] & B MED[facility]ARE [facility] A & B [facility] & B [facility] MEDICARE PART A & B Member Subscriber Plan / Payer (Ef fective 2007-Present) Name:James Lockett Member ID:[id number] Relation to Subscriber:Self Name:James Lockett Subscriber ID:[id number] Payer ID:[id number] Group ID:Not on file Type:Medicare Address: [employer] [address] [place] [id number] [facility] MED[facility] PART A & B [facility] MEDICARE PART A & B [facility] MEDICARE PART A & B [facility] Care Teams Battery Container Tester Aluminum Relationship Specialty Start Date End Date Gonzales Cai MD PCP - General Family Medicine 01/29/25 Additional Source Comments The information contained in this document represents components of the legal health record. It is not the complete legal health record.[facility]
--- OUTSIDE RECORDS SUMMARY | 2025-07-10 07:53 | XMS_ITS | Encounter Summary ---
Author Organization [facility] Address [address] [place] [address] Phone Care Team Providers Care Cone Examiner Name Role Phone Gonzales Cai MD Primary Care Provider Encounter Details Date Type Department Care Team (Late st Contact Info) Description 01/29/2025 Procedure Pass [facility] Endoscopy Admitting Dept Virtual Department [address] [place] [address] Social History Tobacco Use Types Packs/Day Years Used Date Smoking Tobacco: Former Cigarettes Smokeless Tobacco: Never Comments:quit 35 years ago Alcohol Use Standard [...] on filedocumented in this encounter Care Teams Cone Examiner Relationship Specialty Start Date End Date Gonzales Cai MD PCP - General Family Medicine 01/29/25 documented as of this encounter Additional Source Comments The information contained in this document represents components of the legal health record. It is not the complete legal health record.[facility]
--- OUTSIDE RECORDS SUMMARY | 2025-07-10 07:53 | XMS_ITS | Encounter Summary ---
Author Organization [facility] Address [address] [place] [address] [place] [address] Phone Care Team Providers Care Service Engine Repairer Name Role Phone Yoshi Cerrato MD Unavailable Trevor Talbot MD Unavailable Yoshi Cerrato MD Unavailable [phone] Héctor Long MD Unavailable Juma Lemus MD Unavailable [phone] Marycarmen Molina WASHER CARCASS Primary Care Provider Adrienne Rae WASHER CARCASS Primary Care Provider Adrienne Rae WASHER CARCASS Primary Care Provider Adrienne Rae WASHER CARCASS Primary Care Provider Gonzales Cai MD Primary Care Provider Encounter Details Date Type Department Care Team (Late st Contact Info) Description 10/10/2018 Procedure Pass [facility] Endoscopy Admitting Dept Virtual Department [address] [place] [address] Social History Tobacco Use Types Packs/Day Years [...] documented as of this encounter Care Teams Service Engine Repairer Relationship Specialty Start Date End Date Marycarmen Molina NP [address] [place] [address] PCP - General Family Medicine 10/10/18 03/28/19 Adrienne Rae NP [address] [place] [address] [email or web address] PCP - General Urgent Care 03/29/19 06/25/19 Adrienne Rae NP [address] [place] [address] [email or web address] PCP - General Family Medicine 06/26/19 10/19/24 Adrienne Rae NP [address] [place] [address] [email or web address] PCP - General Nurse Practitioner 10/20/24 Gonzales Gomez MD [address] [place] [address] PCP - General Family Medicine 01/29/25 Yoshi Cerrato MD [address] [place] [phone] [email or web address] Insurance Assigned Provider 08/07/17 05/13/19 Trevor Talbot MD [address] [facility], [address] [place] [address] [email or web address] Historical LMR Provider 08/16/17 11/08/21 Yoshi Cerrato MD [address] [place] [address] 7 [place] [address] [email or web address] Historical LMR Provider 08/16/17 11/08/21 Héctor Long MD [address] [place] [address] 7 [place] [address] [email or web address] Historical LMR Provider 08/16/17 11/08/21 Juma Lemus MD 22 [place] [address] Historical LMR Provider 08/16/17 2 documented as of this encounter Additional Source Comments The information contained in this document represents components of the legal health record. It is not the complete legal health record.[facility]
--- OUTSIDE RECORDS SUMMARY | 2025-07-10 07:53 | XMS_ITS | Encounter Summary ---
Author Organization [facility] Address [address] [place] [address] [place] [address] Phone Care Team Providers Care Sewing Inspector Name Role Phone Yoshi Cerrato MD Unavailable [phone] Trevor Talbot MD Unavailable Yoshi Cerrato MD Unavailable [phone] Héctor Long MD Unavailable Juma Lemus MD Unavailable [phone] Marycarmen Molina GLOBAL COMPENSATION MANAGER Primary Care Provider Adrienne Rae GLOBAL COMPENSATION MANAGER Primary Care Provider Adrienne Rae GLOBAL COMPENSATION MANAGER Primary Care Provider Adrienne Rae GLOBAL COMPENSATION MANAGER Primary Care Provider Gonzales Cai MD Primary Care Provider Encounter Details Date Type Department Care Team (Late st Contact Info) Description 11/17/2018 Ancillary Orders Non-Invasive Cardiology [address] [place] [address] Anderson Shelton MD [address] [place] [address] [email or web address] Palpitations Social History Tobacco Use Types Packs/Day Years [...] documented as of this encounter Visit Diagnoses Diagnosis Palpitations documented in this encounter Additional Health Concerns Infection Onset Date Last Indicated Resolved Time CoV-Risk 10/20/2024 10/20/2024 10/31/2024 1:22 AM EST documented as of this encounter Care Teams Sewing Inspector Relationship Specialty Start Date End Date aMrycarmen Molina NP [address] [place] [address] PCP - General Family Medicine 10/10/18 03/28/19 Adrienne Rae NP [address] [place] [address] [email or web address] PCP - General Urgent Care 03/29/19 06/25/19 Adrienne Rae NP [address] [place] [address] [email or web address] PCP - General Family Medicine 06/26/19 10/19/24 Adrienne Rae NP [address] [place] [address] [email or web address] PCP - General Nurse Practitioner 10/20/24 5 Gonzales Cai MD [address] [place] [address] PCP - General Family Medicine 01/29/25 Yoshi Cerrato MD [address] [place] [phone] [email or web address] Insurance Assigned Provider 08/07/17 05/13/19 Trevor Talbot MD [address] [facility] [address] [place] [address] [email or web address] Historical LMR Provider 08/16/17 11/08/21 Yoshi Cerrato MD [address] [place] [address] 7 [place] [address] [email or web address] Historical LMR Provider 08/16/17 11/08/21 Héctor Long MD [address] [place] [address] 7 [place] [address] [email or web address] Historical LMR Provider 08/16/17 11/08/21 Juma Lemus MD [address] [place] [address] Historical LMR Provider 08/16/17 2 documented as of this encounter Additional Source Comments The information contained in this document represents components of the legal health record. It is not the complete legal health record.[facility]
--- OUTSIDE RECORDS SUMMARY | 2025-07-10 07:53 | XMS_ITS | Encounter Summary ---
Author Organization [facility] Address [address] [place] [address] [place] [address] Phone Care Team Providers Care Appliance Servicer Name Role Phone Yoshi Cerrato MD Unavailable Trevor Talbot MD Unavailable [phone] Yoshi Cerrato MD Unavailable Héctor Long MD Unavailable Juma Lemus MD Unavailable [phone] Marycarmen Molina MAGNETIC TAPE COMPOSER OPERATOR Primary Care Provider Adrienne Rae MAGNETIC TAPE COMPOSER OPERATOR Primary Care Provider Adrienne Rae MAGNETIC TAPE COMPOSER OPERATOR Primary Care Provider Adrienne Rae MAGNETIC TAPE COMPOSER OPERATOR Primary Care Provider Gonzales Cai MD Primary Care Provider Encounter Details Date Type Department Care Team (Late st Contact Info) Description 11/17/2018 Ancillary Orders [facility] [address] [place] [address] [place] [address] Anderson Shelton MD [address] [place] [address] [email or web address] Palpitations Social History Tobacco Use Types [...] on file documented as of this encounter Results * Holter Monitor 24 Hours (11/17/2018 12:44 PM EST) Anatomical Region Laterality Modality Heart Other Narrative 11/17/2018 4:37 PM EST 24-hour monitor: Baseline rhythm is sinus with a minimum heart rate of 44, maximum 151, average 76 bpm. No long pauses present. There is a marked increase in frequency of atrial ectopy, with primarily isolated PACs brief runs of atrial tachycardia, longest duration 23 beats. There is a mild increase in frequency of ventricular ectopy, about 1400 PVCs during the 24 hours, primarily isolated PVCs. The patient's diary reports heavy breathing and heart pounding. The symptoms occurred during sinus rhythm with PACs. Impression: Abnormal 24-hour monitor. Marked increase in frequency of atrial ectopy with brief runs of atrial tachycardia, maximum duration 23 beats. Mild increase in frequency of ventricular ectopy, about 1400 PVCs during the day. Symptoms during sinus rhythm with PACs. Procedure Note Demetri Landa MD - 11/17/2018 24-hour monitor: Baseline rhythm is sinus with a minimum heart rate of 44,maximum 151, average 76 bpm. No long pauses present. There is a markedincrease in frequency of atrial ectopy, with primarily isolated PACs briefruns of atrial tachycardia, longest duration 23 beats. There is a mildincrease in frequency of ventricular ectopy, about 1400 PVCs during the 24hours, primarily isolated PVCs. The patient's diary reports heavybreathing and heart pounding. The symptoms occurred during sinus rhythmwith PACs. Impression: Abnormal 24-hour monitor. Marked increase in frequency ofatrial ectopy with brief runs of atrial tachycardia, maximum duration 23beats. Mild increase in frequency of ventricular ectopy, about 1400 PVCsduring the day. Symptoms during sinus rhythm with PACs. Anderson Shelton MD [facility] Final Result documented in this encounter Visit Diagnoses Diagnosis Palpitations Palpitations documented in this encounter Additional Health Concerns Infection Onset Date Last Indicated Resolved Time CoV-Risk 10/20/2024 10/20/2024 10/31/2024 1:22 AM EST documented as of this encounter Care Teams Appliance Servicer Relationship Specialty Start Date End Date Marycarmen Molina NP [address] [place] [address] PCP - General Family Medicine 10/10/18 03/28/19 Adrienne Rae NP [address] [place] [address] [email or web address] PCP - General Urgent Care 03/29/19 06/25/19 Adrienne Rae NP [address] [place] [address] [email or web address] - General Family Medicine 06/26/19 10/19/24 Adrienne Rae NP [address] [place] [address] [email or web address] PCP - General Nurse Practitioner 10/20/24 Gonzales Gomez MD [address] [place] [address] PCP - General Family Medicine 01/29/25 Yoshi Cerrato MD [address] [place] [phone] [email or web address] Insurance Assigned Provider 08/07/17 05/13/19 Trevor Talbot MD [address] [facility], [address] [place] [address] [email or web address] Historical LMR Provider 08/16/17 11/08/21 Yoshi Cerrato MD [address] [place] [address] 7 [place] [address] [email or web address] Historical LMR Provider 08/16/17 11/08/21 Héctor Long MD [address] [place] [address] 7 [place] [address] [email or web address] Historical LMR Provider 08/16/17 11/08/21 Juma Lmeus MD [address] [place] [address] Historical LMR Provider 08/16/17 2 documented as of this encounter Additional Source Comments The information contained in this document represents components of the legal health record. It is not the complete legal health record.[facility]
--- OUTSIDE RECORDS SUMMARY | 2025-07-10 07:53 | XMS_ITS | Encounter Summary ---
Author Organization [employer] Address [address] [place] [address] [facility] [place] [address] Care Team Providers Care Calciner Operator Name Role Phone Sánchez Long Unassigned Primary Care Provider U Lorne Viera LL Unavailable MilliganEliein [facility] Unavailable Judah Chavez PA-C Primary Care Provider [phone] Encounter Details Date Type Department Care Team [...] EST Office Visit [facility] [address] [place] [address] Bentley Milligan [facility] [address] [place] [address] documented as of this encounter Visit Diagnoses Not on filedocumented in this encounter Care Teams Calciner Operator Relationship Specialty Start Date End Date Sánchez Long Unassigned PCP - General Family Medicine 06/15/23 02/22/24 Judah Chavez PA-C [address] [place] [address] PCP - General Family Medicine 02/23/24 Lorne Luna LLD [address] [place] [address] Dentist 10/21/23 Bentley Milligan [facility] [address] [place] [address] Dental Agriscience Technology Instructor 10/21/23 documented as of this encounter
--- OUTSIDE RECORDS SUMMARY | 2025-07-10 07:53 | XMS_ITS | Encounter Summary ---
Author Organization [employer] Address [address] [place] [address] [place] [address] Care Team Providers Care City Superintendent Of Schools Name Role Phone Sánchez Long Unassigned Primary Care Provider U Lorne Viera LL Unavailable Elie Milliganin [facility] Unavailable Judah Chavez PA-C Primary Care Provider [phone] Encounter Details Date Type Department Care Team [...] EST Office Visit [facility] [address] [place] [address] [address] [facility] [address] [place] [address] documented as of this encounter Visit Diagnoses Not on filedocumented in this encounter Care Teams City Superintendent Of Schools Relationship Specialty Start Date End Date Sánchez Long Unasslynette PCP - General Family Medicine 06/15/23 02/22/24 Judah Chavez PA-C [address] [place] [address] PCP - General Family Medicine 02/23/24 Lorne Luna LLD [address] [place] [address] Dentist 10/21/23 Bentley Milligan RDH [address] [place], [place] [phone] Dental Cvicu Nurse 10/21/23 documented as of this encounter
--- NOTE | 2025-07-10 07:55 | PFT_ITS ---
Indication: Dyspnea Spirometry FEV1 to FVC 78%; FEV1 3.15 L; FVC 4.07 L. No significant response to bronchodilators noted. Lung Volumes Total lung capacity 92% predicted Diffusion Capacity DLCO 72% predicted Comparison None Interpretation No definitive obstructive nor restrictive ventilatory defects identified. No significant response to bronchodilators noted. However the patient does have what appears to be some degree of concavity to the expiratory limb suggesting an obstructive physiology. Lung volumes are within normal limits. The patient does have a mild diffusion impairment. If asthma is in the differential methacholine challenge may be helpful in assessing for hyperreactive airways. Clinical correlation warranted. MTDD
[2025-07-10 08:37] VITALS: PULSE 66; O2SAT 98
== END 2025-07-10 07:50 | disposition home or self-care (01) ==
LOC: HO.RESP 07:49
PROVIDERS: Visit Provider Nurse Practitioner Family
DX: R06.09 Other forms of dyspnea (principal)
CPT/HCPCS: 94010; 94640; 94727; 94729

== ENCOUNTER → 2025-07-10 07:55 | Outpatient (BNV) | payer OTHER, SELFPAY | PROVIDERS: Visit Provider Hospitalist | DX: R06.09 Other forms of dyspnea (principal) | CPT/HCPCS: 94060; 94727; 94729 ==

== ENCOUNTER 2025-07-27 10:15 | Outpatient (AMB) | payer OTHER, SELFPAY ==
--- NOTE | 2025-07-27 10:27 | MHC.OFFVIS ---
Vital Signs 07/27/25 10:28 Height 5 ft 10 in Weight 183 lb 4 oz BMI 26.3 BP 148/92 H Blood Pressure Location Lt brachial Position Sitting Pulse 65 Pulse Source Pulse Oximeter Pulse Oximetry (%) 97 Oxygen Delivery Method Room Air Intake Visit Reasons: dyspnea (NOTES) Allergies No Known Allergies Allergy (Verified 07/27/25 10:33) HPI HPI dyspnea (NOTES): Details: James is a pleasant 84 year old male, former 25 pack year smoker, quit 40 years ago with underlying Sjogren's, HTN, HLD, GERD, Ta's esophagus and prior h/o moderate TITUS not on CPAP. He was initially referred by PCP for pulmonary evaluation for progressively worsening dyspnea. Recent PFT suggestive of small airways disease, as indicated by a 54% improvement in small airways after albuterol administration during pulmonary function testing. The patient reports experiencing dyspnea, particularly after meals and during physical activity, which has been noticeable for the past 10 years. Denies cough, wheezing, or chest tightness. The patient has a known hiatal hernia, which has been present for many years and has undergone two fundoplications without success. The patient experiences increased dyspnea postprandially, which may be related to the hernia. The patient has borderline sleep apnea, with a recent home sleep study showing an apnea-hypopnea index of 5.7. The patient manages the condition with positional therapy and has not required a CPAP machine. The patient reports symptoms suggestive of allergic rhinitis, including sneezing triggered by various stimuli such as coffee and environmental factors. [facility] Social History Patient Tobacco Use Status: Former Tobacco user Cigarette Packs Per Day: 1 Years Smoked: 20-25 Review of Systems Const Denies chills, Denies excessive sweating, Denies fever(s), Denies headache(s) and Denies night sweats Eyes Denies dry eyes, Denies irritation and Denies itchy eyes ENT Reports Normal hearing present, Denies headache(s), Denies nasal congestion, Denies nasal discharge, Denies post nasal drip and Denies sore throat Card Denies chest pain, Denies chest pain at rest, Denies chest pain with activity, Denies claudication, Denies leg edema, Denies dyspnea, Reports dyspnea on exertion, Denies orthopnea and Denies paroxysmal nocturnal dyspnea Resp Denies chest congestion, Denies cough, Denies excessive phlegm production, Denies pain on inspiration, Denies pain with cough, Denies dyspnea, Reports dyspnea on exertion, Denies stridor and Denies wheezing Musc Denies myalgias Neuro Reports Normal hearing present and Denies headache(s) Endo Denies excessive sweating Abdi/Lymph Denies lymphadenopathy Aller/Immun Denies itchy eyes, Denies seasonal rhinorrhea and Denies wheezing Physical Exam Vital Signs: Last Vital Signs Pulse 65 07/27/25 10:28 BP 148/92 H 07/27/25 10:28 Pulse Ox 97 07/27/25 10:28 Oxygen Delivery Method Room Air 07/27/25 10:28 BMI result Body Mass Index 26.3 Const General: cooperative, healthy appearing, comfortable, no acute distress, well developed and alert Orientation/consciousness: patient oriented x3 Limitations: no limitations HEENT Head: Yes normal to inspection, Yes normocephalic and Yes atraumatic Ears: hearing grossly normal bilaterally and external ears normal Eyes General: appearance normal, both eyes and all related structures Eyelids: Yes eyelids normal Sclerae: sclerae normal EOM: EOMs intact bilaterally Neck Neck: Yes normal visual inspection and Yes no lymphadenopathy Lymphatic: no lymphadenopathy noted Chest Chest palpation & inspection: normal inspection of the chest Resp Effort & Inspection: normal respiratory effort, able to speak in complete sentences, no audible wheezes, no cough, no stridor, not tachypneic, no tripod positioning and no use of accessory muscles Auscultation: clear to auscultation bilaterally Cardio Jugular venous distension: no JVD Rate: regular rate Rhythm: regular rhythm Skin Other: warm, dry General skin exam: no rashes or lesions noted Neuro General: patient oriented x3 Cranial nerves: Yes Normal hearing present Cognition (Neuro): normal cognition Gait exam (Neuro): Normal gait present Extrem General: Yes normal to inspection, Yes capillary refill normal, Yes no clubbing, cyanosis or edema and Yes no pedal edema Psych Appearance: grossly normal and well kempt Speech and movement: Normal speech and movement present and Clear speech present Affect: normal affect Attitude: cooperative Thought process: Normal thought process present Thought content: Normal thought content present Insight: Good insight present (Psych) Judgement: Good judgement present (Psych) Results Reviewed Results Reviewed: [address] [address] [address] Scan Report Signed Patient: James Lockett MR#: [id number] : 1940 Acct:[id number] Age/Sex: 84 / M ADM Date: 06/15/25 Loc: HO.CT Attending Dr: Claudia Johnson NP Ordering Physician: Claudia Johnson NP Date of Service: 06/15/25 Procedure(s): CT chest wo IV con Accession Number(s): [id number] cc: Claudia Johnson VISUAL SPECIALIST~ Report Number: [id number]: Total DLP = 155.00 mGy-cm CLINICAL HISTORY: R91.8 - Other nonspecific abnormal finding of lung field CT chest without contrast Comparison: 02/02/2023 Findings: The heart is normal size. There is a sliding-type hiatal hernia. There is coronary arterial calcification. The visualized thyroid and mediastinum are otherwise unremarkable. No new consolidation or effusion. 0.5 cm right lower lobe pulmonary lesion is unchanged. 0.5 cm pleural-based right lower lobe pulmonary lesion is unchanged. Bilateral lower lobe bronchiectasis is not significantly progressed. The upper abdomen is unremarkable. The bones are intact. IMPRESSION: 1. Stable right lower lobe pulmonary lesions. 2. Sliding-type hiatal hernia. 3. Bilateral lower lobe bronchiectasis not significantly changed This document has been electronically signed by: Matt Alexander MD on 06/16/2025 09:34:05 Dictated By: Matt Alexander MD Signed By: <Electronically signed by Matt Alexander MD in OV> 06/16/2535 DD/ TD/TT: 06/16/25933 Land Surveying Survey Worker: - Pulmonary Function Test: No significant obstruction, FEV1 improved from 74% to 78% post-albuterol, 54% improvement in small airways - Lung Volume: Normal at 92%, Residual volume normal at 83% - Diffusion Capacity: Below normal at 72%, suggestive of emphysema - CT Scan: No evidence of emphysema, stable lung nodules - Home Sleep Study: Apnea-hypopnea index of 5.7, oxygen saturation average 95% Assessment & Plan Assessment & Plan (1) Dyspnea on exertion: Code(s): R06.09 - Other forms of dyspnea Category: Medical (2) Multiple pulmonary nodules: Code(s): R91.8 - Other nonspecific abnormal finding of lung field Category: Medical (3) Sjogren's disease: Code(s): M35.00 - Sjogren syndrome, unspecified Category: Medical (4) Obstructive sleep apnea: Code(s): G47.33 - Obstructive sleep apnea (adult) (pediatric) Category: Medical Plan The patient exhibits small airways disease, as evidenced by a 54% improvement in small airways post-albuterol administration. Albuterol inhaler was recommended for use 15-20 minutes before exercise to alleviate symptoms of dyspnea. The patient was advised to monitor the frequency of inhaler use and consider a daily inhaler if usage becomes frequent.The patient has a known hiatal hernia, which may contribute to postprandial dyspnea. The patient was advised to follow up with a ethanol maintenance mechanic if symptoms become more bothersome.The patient has borderline sleep apnea with an apnea-hypopnea index of 5.7 from a recent home sleep study. Positional therapy was recommended, and the patient was advised to continue current management without CPAP unless symptoms worsen.The patient reports symptoms suggestive of allergic rhinitis, including sneezing triggered by various stimuli such as coffee and environmental factors. The patient was advised to monitor symptoms and consider allergy testing if symptoms persist. All questions were answered and patient is in agreement of plan. Will follow up in 6 months or sooner if needed. Medications: New albuterol sulfate 90 mcg/actuation 2 puffs inhalation Q4-6H PRN 1 ea 0RF shortness of breath or wheezing J45.909 - Unspecified asthma, uncomplicated Coding Level of Care Code Est Pt Level 4 (39318) Diagnoses Dyspnea on exertion R06.09 Multiple pulmonary nodules R91.8 Sjogren's disease M35.00 Obstructive sleep apnea G47.33
[2025-07-27 10:28] VITALS: BP 148/92; PULSE 65; O2SAT 97; BMI 26.3
--- OUTSIDE RECORDS SUMMARY | 2025-07-27 11:32 | XMS_ITS | Clinical Summary ---
Author Organization [facility] Address [address] [place] [address] [place] [address] Phone Care Team Providers Care Neon Molder Name Role Phone Gonzales Cai MD Primary [...] weightbearing exercises. Fall and fracture prevention strategies. care home current use of systemic steroids 06/26 Assessment [...] with patient need for close follow-up with lifter/driver as scheduled. Assessment & Plan (09/01/2020 10:37 AM EST): Avoid late, large, spicy meals. Keep headboard elevated at 45 angle for nighttime. Reviewed with patient need for close follow-up with lifter/driver as scheduled. Assessment & Plan (11/17/2019 12:27 PM EST): Avoid late, large, spicy meals. Keep headboard elevated at 45 angle for nighttime. Reviewed with patient need for close follow-up with lifter/driver as scheduled. Strongly encouraged diligent adherence to [...] with patient need for close follow-up with lifter/driver as scheduled. Strongly encouraged diligent adherence to [...] with patient need for close follow-up with lifter/driver as scheduled. Strongly encouraged diligent adherence to [...] EDT) SODIUM 139 133 - 146 mmol/L [facility] POTASSIUM 4.2 3.3 - 5.1 mmol/L [facility] CHLORIDE 100 96 - 108 mmol/L [facility] CO2 28 21 - 35 mmol/L [facility] BUN 15 6 - 19 mg/dL [facility] CREATININE 0.90 0.5 - 1.5 mg/dL [facility] GLUCOSE 106(H) 70 - 99 mg/dL [facility] ALBUMIN 4.4 3.9 - 4.8 g/dL [facility] TOTAL PROTEIN 7.1 6.5 - 8.0 g/dL [facility] CALCIUM 10.2 8.4 - 10.3 mg/dL [facility] ALKALINE PHOSPHATASE 74 39 - 117 U/L [facility] TOTAL BILIRUBIN 0.6 0.0 - 1.2 mg/dL [facility] AST 18 0 - 37 U/L [facility] ALT 12 0 - 40 U/L [facility] GLOBULIN 2.7 1 - 4.8 g/dL [facility] EGFR 82 >59 mL/min/1.7 3m2 [facility] Comment:Estimated glomerular filtration rate calculated using the CKD-EPI equation. ANION GAP 15 10 - 20 mmol/L [facility] Blood 08/29/2020 9:05 AM EDT 08/29/2020 9:11 AM EDT us Bia Noble MD LAB BLOOD ORDERABLES Fin al Result [facility] [address] [place], [place] [phone] from Last 3 Months or Most Recently Relevant to Health Maintenance Insurance MEDICARE PART A & B Member Subscriber Plan / Payer (Ef fective 2007-Present) Name:James Lockett Member ID:[id number] Relation to Subscriber:Self Name:James Lockett Subscriber ID:[id number] Payer ID:[id number] Group ID:Not on file Type:Medicare Address: [facility] [employer] [place] [facility]. [address] [place] [address] [facility] & B [facility] A & B MEDICARE PART A & B [facility] MEDICARE PART A & B [facility] MEDICARE PART A & B Member Subscriber Plan / Payer (Ef fective 2007-Present) Name:James Lockett Member ID:[id number] Relation to Subscriber:Self Name:James Lockett Subscriber ID:[id number] Payer ID:[id number] Group ID:Not on file Type:Medicare Address: [employer] [address] [place] [id number] [facility] MEDICARE PART A & B [facility] MEDICARE PART A & B [facility] MEDICARE PART A & B [facility] Care Teams Neon Molder Relationship Specialty Start Date End Date Gonzales Cai MD PCP - General Family Medicine 01/29/25 Additional Source Comments The information contained in this document represents components of the legal health record. It is not the complete legal health record.[facility]
--- OUTSIDE RECORDS SUMMARY | 2025-07-27 11:32 | XMS_ITS | Encounter Summary ---
Author Organization [employer] Address [address] [place] [address] [place] [address] Care Team Providers Care Contract Associate Name Role Phone Sánchez Long Unassigned Primary Care Provider U Lorne Viera DMD Unavailable Unavailable Bentley Milligan [facility] Unavailable Judah Chavez PA-C Primary Care Provider [phone] Encounter Details Date Type Department Care Team [...] EST Office Visit [facility] [address] [place] [address] [facility] [address] [place] [address] documented as of this encounter Visit Diagnoses Not on filedocumented in this encounter Care Teams Contract Associate Relationship Specialty Start Date End Date Sánchez Long Unasslynette PCP - General Family Medicine 06/15/23 02/22/24 Judah Chavez PA-C [address] [place], [place] [phone] PCP - General Family Medicine 02/23/24 Lorne Luna DMD Dentist 10/21/23 [place] [address] Dental Forensic Manager 10/21/23 documented as of this encounter
--- OUTSIDE RECORDS SUMMARY | 2025-07-27 11:32 | XMS_ITS | Encounter Summary ---
Author Organization [employer] Address [address] [place] [address] [place] [address] Care Team Providers Care Dye Range Operator Name Role Phone Sánchez Long Unassigned Primary Care Provider U Lorne Viera DMD Unavailable Unavailable Bentley Milligan [facility] Unavailable Judah Chavez PA-C Primary Care Provider Encounter Details Date Type [...] EST Office Visit [facility] [address] [place] [address] [facility] [address] [place] [address] documented as of this encounter Visit Diagnoses Not on filedocumented in this encounter Care Teams Dye Range Operator Relationship Specialty Start Date End Date Sánchez Long Unasslynette PCP - General Family Medicine 06/15/23 02/22/24 Judah Chavez PA-C [address] [place] [address] PCP - General Family Medicine 02/23/24 Lorne Luna DMD Dentist 10/21/23 [place] [address] Dental Dulser 10/21/23 documented as of this encounter
--- OUTSIDE RECORDS SUMMARY | 2025-07-27 11:32 | XMS_ITS | Clinical Summary ---
Author Organization [employer] Address [address] [place] [address] 7 [place] [address] Care Team Providers Care Gum Mixer Name Role Phone Lorne Luna DMD Unavailable Unavailable Bentley Milligan [facility] Unavailable Judah Chavez PA-C Primary Care Provider [phone] Allergies No known active allergies Medications lisinopril [...] Description 05/28/2025 9:00 AM EDT Office Visit [facility] [address] [place] [phone] Rodri Parker DMD 05/07/2025 9:45 AM EDT Office Visit [address] [address] Rodri Parker, ANGELIA from Last 3 Months Social History Tobacco [...] Description 10/12/2025 10:15 AM EST Office Visit [address] [phone] [address] [address] Health Maintenance Due Date Last Done Comments [...] history exists Influenza Vaccine (#1) 2025 12/13/2024, 10/14/ 2022 Dental Oral Exam 10/11/2025 04/10/2025, , 11/13/2022, [...] TREATMENT PLANNING Routine 05/07/2025 9:45 AM EDT PROPHYLAXIS - ADULT Routine 04/10/2025 3 :45 PM EDT BITEWINGS - 4 RADIOGRAPHIC IMAGES Routine 04/10/2025 3:45 PM EDT PERIODIC ORAL EVALUATION - ESTABLISHED PATIENT Routine 04/10/2025 3:45 PM EDT INTRAORAL - COMPLETE SERIES OF RADIOGRAPHIC IMAGES Routine 11/13/2022 8:30 AM EST Encounter for dental examination from Last 3 Months or Most Recently Relevant to Health Maintenance Insurance [place] [id number] HSN FULL HSN FULL DENTAL - HSN FULL (MEDICAID) DENTAL - HSN FULL (MEDICAID) Care Teams Gum Mixer Relationship Specialty Start Date End Date Judah Chavez PA-C [address] [place] [address] PCP - General Family Medicine 02/23/24 Lorne Luna DMD Dentist 10/21/23 Bentley Milligan, [facility] [address] [place] [address] Dental Calibration Specialist 10/21/23
--- OUTSIDE RECORDS SUMMARY | 2025-07-27 11:32 | XMS_ITS | Encounter Summary ---
Author Organization [employer] Address [address] [place] [address] [place] [address] Care Team Providers Care Caul Fat Puller Name Role Phone Sánchez Long Unassigned Primary Care Provider U Lorne Viera DMD Unavailable Un[facility] Judah Chavez PA-C Primary Care Provider [...] EST Office Visit [facility] [address] [place] [address] [facility] [address] [place] [address] documented as of this encounter Visit Diagnoses Not on filedocumented in this encounter Care Teams Caul Fat Puller Relationship Specialty Start Date End Date Sánchez Long Unasslynette PCP - General Family Medicine 06/15/23 02/22/24 Judah Chavez PA-C [address] [place] [address] PCP - General Family Medicine 02/23/24 Lorne Luna DMD Dentist 10/21/23 [place] [address] Dental Type Bar And Segment Assembler 10/21/23 documented as of this encounter
--- OUTSIDE RECORDS SUMMARY | 2025-07-27 11:32 | XMS_ITS | Encounter Summary ---
Author Organization [facility] Address [address] [place] [address] Phone Care Team Providers Care Polymerization Engineer Name Role Phone Yoshi Cerrato MD Unavailable [phone] Trevor Talbot MD Unavailable [phone] Yoshi Cerrato MD Unavailable Héctor Long MD Unavailable Juma Lemus MD Unavailable [phone] Marycarmen Molina SAMPLE COORDINATOR Primary Care Provider [phone] Adrienne Rae SAMPLE COORDINATOR Primary Care Provider Adrienne Rae SAMPLE COORDINATOR Primary Care Provider Adrienne Rae SAMPLE COORDINATOR Primary Care Provider Gonzales Cai MD Primary Care Provider Encounter Details Date Type Department Care Team (Late st Contact Info) Description 11/17/2018 Ancillary Orders [facility] [address] [place] [address] Anderson Shelton MD [address] [place] [address] [email or web address] Social History Tobacco Use Types Packs/Day Years [...] documented as of this encounter Care Teams Polymerization Engineer Relationship Specialty Start Date End Date Marycarmen Molina NP [address] [place] [address] PCP - General Family Medicine 10/10/18 03/28/19 Adrienne Rae NP [address] [place] [address] [email or web address] PCP - General Urgent Care 03/29/19 06/25/19 Adrienne Rae NP [address] [place] [address] [email or web address] PCP - General Family Medicine 06/26/19 10/19/24 Adrienne Rae NP [address] [place] [address] [email or web address] PCP - General Nurse Practitioner 10/20/24 Gonzales Gomez MD [address] [place] [address] PCP - General Family Medicine 01/29/25 Yoshi Cerrato MD [address] [place] [phone] [email or web address] Insurance Assigned Provider 08/07/17 05/13/19 Trevor Talbot MD [address] [address] [email or web address] Historical LMR Provider 08/16/17 11/08/21 Yoshi Cerrato MD [address] [place] [address] 7 [place] [phone] [email or web address] Historical LMR Provider 08/16/17 11/08/21 Héctor Long MD [address] [place] [address] 7 [place] [address] [email or web address] Historical LMR Provider 08/16/17 11/08/21 Juma Lemus MD [address] [place] [address] Historical LMR Provider 08/16/17 2 documented as of this encounter Additional Source Comments The information contained in this document represents components of the legal health record. It is not the complete legal health record.[facility]
--- OUTSIDE RECORDS SUMMARY | 2025-07-27 11:32 | XMS_ITS | Encounter Summary ---
Author Organization [facility] Address [address] [place] [address] Phone Care Team Providers Care Audio Visual Facilities Engineer Name Role Phone Gonzales Cai MD Primary Care Provider Encounter Details Date Type Department Care Team (Late st Contact Info) Description 01/29/2025 Procedure Pass [facility] Endoscopy Admitting Dept Virtual Department [address] [place] [address] Social History Tobacco Use Types Packs/Day Years [...] on filedocumented in this encounter Care Teams Audio Visual Facilities Engineer Relationship Specialty Start Date End Date Gonzales Cai MD PCP - General Family Medicine 01/29/25 documented as of this encounter Additional Source Comments The information contained in this document represents components of the legal health record. It is not the complete legal health record.[facility]
--- OUTSIDE RECORDS SUMMARY | 2025-07-27 11:32 | XMS_ITS | Encounter Summary ---
Author Organization [facility] Address [address] [place] [address] [place] [address] Phone Care Team Providers Care Biology Laboratory Assistant Name Role Phone Yoshi Cerrato MD Unavailable [phone] Trevor Talbot MD Unavailable Yoshi Cerrato MD Unavailable [phone] Héctor Long MD Unavailable Juma Lemus MD Unavailable [phone] Marycarmen Molina MEDICAL CODING TECHNICIAN Primary Care Provider Adrienne Rae MEDICAL CODING TECHNICIAN Primary Care Provider Adrienne Rae MEDICAL CODING TECHNICIAN Primary Care Provider Adrienne Rae MEDICAL CODING TECHNICIAN Primary Care Provider Gonzales Cai MD Primary Care Provider Encounter Details Date Type Department Care Team (Late st Contact Info) Description 11/17/2018 Ancillary Orders Non-Invasive Cardiology [address] [place] [address] Anderson Shelton MD [address] [place] [phone] [email or web address] Social History Tobacco Use [...] documented as of this encounter Care Teams Biology Laboratory Assistant Relationship Specialty Start Date End Date Marycarmen Molina NP [address] [place] [address] PCP - General Family Medicine 10/10/18 03/28/19 dArienne Rae NP [address] [place] [address] [email or web address] PCP - General Urgent Care 03/29/19 06/25/19 Adrienne Rae NP [address] [place] [phone] [email or web address] PCP - General Family Medicine 06/26/19 10/19/24 Adrienne Rae NP [address] [place] [phone] [email or web address] PCP - General Nurse Practitioner 10/20/24 5 Gonzales Cai MD [address] [place] [address] PCP - General Family Medicine 01/29/25 Yoshi Cerrato MD [address] [place] [phone] [email or web address] Insurance Assigned Provider 08/07/17 05/13/19 Trevor Talbot MD [address] [facility] [address] [place] [address] [email or web address] Historical LMR Provider 08/16/17 11/08/21 Yoshi Cerrato MD [address] [place] [address] 7 [place] [address] [email or web address] Historical LMR Provider 08/16/17 11/08/21 Héctor Long MD [address] [place] [address] 7 [place] [address] [email or web address] Historical LMR Provider 08/16/17 11/08/21 Juma Lemus MD [address] [place] [address] Historical LMR Provider 08/16/17 2 documented as of this encounter Additional Source Comments The information contained in this document represents components of the legal health record. It is not the complete legal health record.[facility]
--- OUTSIDE RECORDS SUMMARY | 2025-07-27 11:32 | XMS_ITS | Encounter Summary ---
Author Organization [facility] Address [address] [place] [address] [place] [address] Phone Care Team Providers Care Garment Form Assembler Name Role Phone Yoshi Cerrato MD Unavailable Trevor Talbot MD Unavailable Yoshi Cerrato MD Unavailable Héctor Long MD Unavailable Juma Lemus MD Unavailable [phone] Marycarmen Molina TOPPER PRESS OPERATOR Primary Care Provider Adrienne Rae TOPPER PRESS OPERATOR Primary Care Provider Adrienne Rae TOPPER PRESS OPERATOR Primary Care Provider Adrienne Rae TOPPER PRESS OPERATOR Primary Care Provider Gonzales Cai MD Primary Care Provider Encounter Details Date Type Department Care Team (Late st Contact Info) Description 10/10/2018 Procedure Pass [facility] Endoscopy Admitting Dept Virtual Department [address] [place] [address] Social History Tobacco Use Types Packs/Day Years [...] documented as of this encounter Care Teams Garment Form Assembler Relationship Specialty Start Date End Date Marycarmen Molina NP [address] [place] [address] PCP - General Family Medicine 10/10/18 03/28/19 Adrienne Rae NP [address] [place] [address] [email or web address] PCP - General Urgent Care 03/29/19 06/25/19 Adrienne Rae NP [address] [place] [phone] [email or web address] PCP - General Family Medicine 06/26/19 10/19/24 Adrienne Rae NP [address] [place] [phone] [email or web address] PCP - General Nurse Practitioner 10/20/24 Gonzales Gomez MD [address] [place] [address] PCP - General Family Medicine 01/29/25 Yoshi Cerrato MD [address] [place] [phone] [email or web address] Insurance Assigned Provider 08/07/17 05/13/19 Trevor Talbot MD [address] [facility], [address] [place] [address] [email or web address] Historical LMR Provider 08/16/17 11/08/21 Yoshi Cerrato MD [address] [place] [address] [address] [place] [phone] [email or web address] Historical LMR Provider 08/16/17 11/08/21 Héctor Long MD [address] [place] [address] 7 [place] [address] [email or web address] Historical LMR Provider 08/16/17 11/08/21 Juma Lemus MD [address] [place] [address] Historical LMR Provider 08/16/17 2 documented as of this encounter Additional Source Comments The information contained in this document represents components of the legal health record. It is not the complete legal health record.[facility]
--- OUTSIDE RECORDS SUMMARY | 2025-07-27 11:32 | XMS_ITS | Clinical Summary ---
Author Organization [facility] Address [facility] [place] [address] Care Team Providers Care Parquetry Floor Layer Name Role Phone Unknown Primary Care Provider [...] - Influenza standard series) 07/02/2025 Care Teams Parquetry Floor Layer Relationship Specialty Start Date End Date Unknown None PCP - General 06/01/22
== END 2025-07-27 11:12 | disposition home or self-care (01) ==
LOC: HO.HPSW 10:16
PROVIDERS: PCP Family Medicine; Referring Provider Nurse Practitioner Family; Visit Provider Nurse Practitioner Family
DX: R06.09 Other forms of dyspnea (principal); R91.8 Other nonspecific abnormal finding of lung field; M35.00 Sjogren syndrome, unspecified; G47.33 Obstructive sleep apnea (adult) (pediatric)
CPT/HCPCS: 99214

== ENCOUNTER → 2025-07-27 10:15 | Outpatient (BNVA) | payer OTHER, SELFPAY | PROVIDERS: PCP Family Medicine; Visit Provider Nurse Practitioner Family | DX: G47.33 Obstructive sleep apnea (adult) (pediatric) (principal); M35.00 Sjogren syndrome, unspecified; R06.09 Other forms of dyspnea; R91.8 Other nonspecific abnormal finding of lung field; Z87.891 Personal history of nicotine dependence; I10 Essential (primary) hypertension | CPT/HCPCS: 99212 ==